=== PATIENT | male | born 1955 | race Caucasian/White ===

== ENCOUNTER 2020-01-01 01:07 | Outpatient (CLI) | payer OTHER, SELFPAY ==
[2020-01-01 18:31] LABS: SARS-CoV-2 RNA PCR Negative
== END 2020-01-01 01:08 | disposition home or self-care (01) ==
LOC: ANHCOVIDDT 01:08
PROVIDERS: PCP Family Medicine; Visit Provider Internal Medicine Cardiovascular Disease
DX: Z01.818 Encounter for other preprocedural examination (principal); Z11.59 Encounter for screening for other viral diseases
CPT/HCPCS: 87635; C9803; U0003

== ENCOUNTER 2020-01-04 05:31 | Day surgery (SDC) | payer OTHER, SELFPAY ==
[2020-01-04] VITALS (21 sets, daily range): BP systolic 128–157; BP diastolic 56–86; PULSE 55–76; RESP 12–20; TEMP 36.6–37; O2SAT 94–100; BMI 36.6
[2020-01-04 07:24] LABS: Basophils Percent Auto 0.3 % (0.2-1.2); Eosinophils Absolute Auto 0.2 K/mm3 (0-0.3); Eosinophils Percent Auto 2.2 % (0-4.4); Hematocrit 42.1 % (42.0-52.0); Hemoglobin 13.9 g/dL (14.0-18.0); Immature Granulocyte Absolute 0.03 K/mm3 (0.00-0.031); Immature Granulocyte Percent A 0.4 % (0-0.5); Lymphocytes Absolute Auto 1.71 K/mm3 (0.9-3.2); Lymphocytes Percent Auto 22.5 % (18.3-44.2); Mean Corpuscular Volume 81.9 fl (80-100); Mean Platelet Volume 10.5 fl (7.4-10.4); Monocytes Absolute Auto 0.6 K/mm3 (0.1-0.6); Neutrophils Absolute Auto 5.1 K/mm3 (1.3-6.7); Neutrophils Percent Auto 66.6 % (45.5-73.1); Platelet Count Result 154 k/mm3 (150-375); Red Blood Count 5.14 M/mm3 (4.6-6.20); White Blood Count 7.6 K/mm3 (4.5-10.0)
--- NOTE | 2020-01-04 07:24 | SUR.PREOP ---
0650-pt presents to the [facility] for an LHC. Pt has has instances in the past two weeks with exertional chest pain. No pain at present. AOx4. Questions answered and verbalized understanding. Consent signed. AOx4. PIV started and labs obtained and sent per ordered. Pedal pulses found and marked. Will continue to monitor.
[2020-01-04 07:32] LABS: Prothrombin Time 12.4 Seconds (11.1-14.7)
[2020-01-04 07:34] LABS: Anion Gap 10.7 mmol/L (7-16); Blood Urea Nitrogen 17 mg/dL (9-20); Calcium 8.7 mg/dL (8.4-10.2); Carbon Dioxide 29 mmol/L (22-30); Chloride 107 mmol/L (98-107); Estimated CRCL calculation 91 ml/min; Estimated Glomerular Filt Rate > 60; Glucose 93 mg/dL (75-110); Potassium 3.7 mmol/L (3.4-5.0); Sodium 143 mmol/L (137-145)
--- NOTE | 2020-01-04 09:07 | WPDMODSED ---
Moderate Sedation Note-Pt Data Patient Data Allergies Allergy/AdvReac Type Severity Reaction Status Date / Time No Known Drug Allergies Allergy Unknown Verified 04/02/15 17:03 NKFA Allergy Unknown Uncoded 11/23/02 12:19 Home Medications Medication Instructions Recorded Confirmed Type metoprolol tartrate 25 mg tablet 25 mg PO BID #180 tablet 06/28/19 01/04/20 Rx omeprazole 20 mg capsule,delayed 20 mg PO BID #180 cap 06/28/19 01/04/20 Rx release clopidogrel 75 mg PO DAILY 01/04/20 01/04/20 History empagliflozin [Jardiance] 25 mg PO DAILY 01/04/20 01/04/20 History furosemide 40 mg PO DAILY 01/04/20 01/04/20 History icosapent ethyl [Vascepa] 2 g PO BID 01/04/20 01/04/20 History insulin glargine [Lantus U-100 80 unit SUBCUT DAILY 01/04/20 01/04/20 History Insulin] lisinopril 20 mg PO DAILY 01/04/20 01/04/20 History metformin 500 mg PO DAILY 01/04/20 01/04/20 History nitroglycerin [Nitrostat] 0.4 mg SUBLINGUAL Q5M PRN 01/04/20 01/04/20 History rosuvastatin [Crestor] 40 mg PO DAILY 01/04/20 01/04/20 History Current Medications: Active Medications Sodium Chloride (Normal Saline Iv) 500 mls @ 100 mls/hr IV CONT .Q5H TAWNYA Sedation/Anesthesia: No previous sedation/anesthesia problems (including family history). [facility] Past Medical History Medical History (Updated 07/23/19 @ 10:42 by Michele Harp MD) Aortic regurgitation Aortic stenosis LVH (left ventricular hypertrophy) Family History Family History (Updated 04/02/18 @ 10:46 by DOCTOR UNKNOWN) Father Patient's father is Other Family history of cardiovascular disease Hypertension Social History Social History Smoking status: Current every day smoker Alcohol intake: current Mod Sed Physical Exam Physical Exam Pre Procedural Exam: Normal: Airway Hours since solid foods: 10 Hours since liquid intake: 10 Internal Medicine - PN: Obj Da Vital Signs Vital Signs: Vital Signs - 24 hr 01/04/20 07:22 Temperature 37.0 C Pulse Rate 67 Respiratory Rate 16 Blood Pressure 157/86 H Pulse Oximetry 98 Meds/Results Medications: Active Medications Generic Name Dose Route Start Last Admin Trade Name Nellie PRN Reason Stop Dose Admin Sodium Chloride 500 mls @ 100 mls/hr 01/04/20 05:55 Normal Saline Iv IV CONT .Q5H TAWNYA Labs CBC & Chem 7: 01/04/20 07:04 01/04/20 07:04 Labs: Laboratory Results - last 24 hr 01/04/20 01/04/20 01/04/20 07:04 07:04 07:04 WBC 7.6 RBC 5.14 Hgb 13.9 L Hct 42.1 MCV 81.9 MCH 27.0 MCHC 33.0 RDW 14.0 Plt Count 154 MPV 10.5 H Immature Gran % (Auto) 0.4 Neut % (Auto) 66.6 Lymph % (Auto) 22.5 Anderson % (Auto) 8.0 Eos % (Auto) 2.2 Baso % (Auto) 0.3 Lymph # (Auto) 1.71 Anderson # (Auto) 0.6 Eos # (Auto) 0.2 Baso # (Auto) 0.0 Abs Immat Gran (auto) 0.03 Absolute Neuts (auto) 5.1 Absolute Nucleated RBC 0.0 Nucleated RBC % 0.0 PT 12.4 INR 1.0 Sodium 143 Potassium 3.7 Chloride 107 Carbon Dioxide 29 Anion Gap 10.7 BUN 17 Creatinine 0.80 Estim Creat Clear Calc 91 Estimated GFR > 60 Glucose 93 Calcium 8.7 ASA Classification/Sedation ASA Classification/Sedation Risks: Risks, benefits and alternatives explained and patient/family accepted plan for sedation. Patient re-evaluated immediately prior to sedation.
--- NOTE | 2020-01-04 10:09 | PM.IMHP ---
H&P: HPI History of Present Illness Date/Time: 01/04/20 10:09 Chief complaint: Chest Pain Narrative: Laurent Delgado is a 64 year old male With known CAD, history of CABG x5 on 04/16/2015 at [facility] ( vera to LAD, SVG to 1st diagonal branch with T graft from the site of the vein to the obtuse marginal 1 and obtuse marginal 2 using the radial artery, SVG to PDA); hypertension, diabetes mellitus. Patient is known to have severe [place] vessel CAD and occluded SVG to RCA; history of high-grade stenosis of ostium of the SVG graft to diagonal, status post PCI/ 3.25 x 15 mm everolimus eluting stent on 09/21/2015 at [facility]. Patient reports that he was in his usual state of health until couple of weeks ago when he started having anginal chest pain, shortness of breath and dizziness. He was referred by Dr. Rayo for cardiac catheterization to re-evaluate his [place] coronary arteries and bypass grafts. [facility] Past Medical History Medical History (Updated 01/04/20 @ 10:14 by J Carlos Quinones MD) Aortic regurgitation Aortic stenosis LVH (left ventricular hypertrophy) Surgical History Surgical History (Updated 01/04/20 @ 10:13 by J Carlos Quinones MD) S/P CABG x 5 Family History Family History Father Patient's father is Other Family history of cardiovascular disease Hypertension Social History Social History Smoking status: Current every day smoker Alcohol intake: current Meds Home Medications and Allergies Home Medications Medication Instructions Recorded Confirmed Type metoprolol tartrate 25 mg tablet 25 mg PO BID #180 tablet 06/28/19 01/04/20 Rx omeprazole 20 mg capsule,delayed 20 mg PO BID #180 cap 06/28/19 01/04/20 Rx release clopidogrel 75 mg PO DAILY 01/04/20 01/04/20 History empagliflozin [Jardiance] 25 mg PO DAILY 01/04/20 01/04/20 History furosemide 40 mg PO DAILY 01/04/20 01/04/20 History icosapent ethyl [Vascepa] 2 g PO BID 01/04/20 01/04/20 History insulin glargine [Lantus U-100 80 unit SUBCUT DAILY 01/04/20 01/04/20 History Insulin] lisinopril 20 mg PO DAILY 01/04/20 01/04/20 History metformin 500 mg PO DAILY 01/04/20 01/04/20 History nitroglycerin [Nitrostat] 0.4 mg SUBLINGUAL Q5M PRN 01/04/20 01/04/20 History rosuvastatin [Crestor] 40 mg PO DAILY 01/04/20 01/04/20 History Allergies Allergy/AdvReac Type Severity Reaction Status Date / Time No Known Drug Allergies Allergy Unknown Verified 04/02/15 17:03 NKFA Allergy Unknown Uncoded 11/23/02 12:19 Vital Signs Vital Signs - 24 hr 01/04/20 07:22 Temperature 37.0 C Pulse Rate 67 Respiratory Rate 16 Blood Pressure 157/86 H Pulse Oximetry 98 Exam Const: General: no acute distress, alert and awake HENMT: Head: normocephalic and atraumatic Ears: hearing grossly normal bilaterally and external ears normal General nose exam: Normal external nose present and no epistaxis Face and sinus: normal facial exam and no ecchymosis Mouth: Yes tongue normal and Yes moist mucous membranes Teeth and gingiva: dentition normal Eyes: Conjunctivae: conjunctivae normal Sclera: sclerae normal Pupils: Equal, round and reactive pupils present EOM: EOMs intact bilaterally Neck: Neck: normal visual inspection, supple and no JVD Thyroid: thyroid normal Carotids: normal carotid upstroke Resp: Effort & Inspection: normal respiratory effort and able to speak in complete sentences Auscultation: clear to auscultation bilaterally Cardio: Jugular venous distension: no JVD Rate: regular rate Rhythm: regular rhythm Heart sounds: S1 normal heart sound present, S2 normal heart sound present and no murmurs GI: Inspection: normal to inspection GI Palp: No abdominal tenderness Auscultation: normal bowel sounds Skin: Other: no rash on exposed areas, no cyanosis Neuro: Cranial nerves: Yes Equal, round and reactive pup
--- NOTE | 2020-01-04 10:14 | WPDCARDPROC ---
Cardiac Cath Procedure Note Date of procedure:: 01/04/20 Performing physician:: J Carlos Quinones MD Procedure Procedure note:: LEFT HEART CATHETERIZATION, CORONARY AND BYPASS GRAFT ANGIOGRAPHY, AND PERIPHERAL ANGIOGRAM REPORT DATE OF PROCEDURE: 01/04/2020 INDICATION FOR PROCEDURE: ANGINA, SHORTNESS OF BREATH BRIEF CLINICAL HISTORY:Laurent Delgado is a 64 year old male With known CAD, history of CABG x5 on 04/16/2015 at [facility] (PERKINS to LAD, SVG to 1st diagonal branch with T graft from the site of the vein to the obtuse marginal 1 and obtuse marginal 2 using the radial artery, SVG to PDA); hypertension, diabetes mellitus. Patient is known to have severe [place] vessel CAD and occluded SVG to RCA; history of high-grade stenosis of ostium of the SVG graft to diagonal, status post PCI/ 3.25 x 15 mm everolimus eluting stent on 09/21/2015 at [facility]. Patient reports that he was in his usual state of health until couple of weeks ago when he started having anginal chest pain, shortness of breath and dizziness. He was referred by Dr. Rayo for cardiac catheterization to re-evaluate his [place] coronary arteries and bypass grafts. Of note, patient has also been experiencing discomfort in the right groin and thigh area with exertion. Benefits and risks of the procedure were discussed with the patient in depth, and informed consent was obtained prior to the procedure. Risks of the procedure include but are not limited to vascular complications including groin hematoma, retroperitoneal bleed, vessel perforation; periprocedural VA, cardiac arrhythmias, stroke, contrast induced nephropathy, and . After discussing all the benefits, risks and alternatives, patient was willing to proceed with the procedure. PROCEDURES PERFORMED: 1. Left heart catheterization- Selective left and right coronary angiogram; left ventriculogram and hemodynamic assessment 2. Selective bypass graft angiography 3. Selective left subclavian angiogram 4. Percutaneous coronary intervention-intravascular ultrasound (IVUS) of ostial and proximal RCA 5. Distal abdominal aortogram with bilateral iliac runoff 6. Moderate sedation -CPT code 49472 MODERATE SEDATION: Midazolam 1 mg; fentanyl 25 mcg; Start time 0914 , Stop time 0959 ; Total [id number] time 45 minutes; Rebeca Ruth RN was trained observer for moderate sedation. ACCESS SITE: Right common femoral artery PROCEDURE NOTE: After obtaining informed consent, patient was brought to catheterization lab and prepped and draped in a usual sterile manner. After local anesthesia with lidocaine, right common femoral artery access was taken with micropuncture needle followed by insertion of a 5 [place] sheath . There was difficulty in advancing the wire at the proximal segment of the iliac artery. A Glidewire was used to advance the catheters, and the procedure was performed over a long exchange wire. Selective left and right coronary angiogram was performed using 5 [place] JL4 and JR4 catheters respectively. Orthogonal views were taken. Next, Selective bypass graft angiography was performed using JR4 diagnostic catheter. The same catheter was withdrawn, and selective left subclavian angiogram was performed. Next, the catheter was exchanged over a long exchange wire with a 5 [place] IM catheter. Selective PERKINS angiogram was performed. Next, a 5 [place] pigtail catheter was advanced in the LV cavity and was flushed with normal saline. LV pressure measurement was performed. After this, left ventriculogram was performed. The catheter was flushed again, and gradient across the aortic valve was measured on the pullback of the catheter . Due to early difficulty in advancing the wire into the right iliac artery, we proceeded with a peripheral angiogram to evaluate for any significant peripheral artery disease. The [place] pigtail catheter was advanced into distal abdominal abdominal aorta, and distal abd
== END 2020-01-04 19:25 | disposition home or self-care (01) ==
PROVIDERS: PCP Family Medicine; Visit Provider Internal Medicine Cardiovascular Disease
PROC: 4A023N7 Measurement of Cardiac Sampling and Pressure, Left Heart, Percutaneous Approach (ICD-10-PCS; CPT 93459; principal; 2020-01-04 08:30)
PROC: (CPT 75625; 2020-01-04 08:30)
DX: I25.119 Atherosclerotic heart disease of native coronary artery with unspecified angina pectoris (principal); R06.02 Shortness of breath; T82.855A Stenosis of coronary artery stent, initial encounter; Y83.8 Other surgical procedures as the cause of abnormal reaction of the patient, or of later complication, without mention of misadventure at the time of the procedure; I35.2 Nonrheumatic aortic (valve) stenosis with insufficiency; Z95.1 Presence of aortocoronary bypass graft; Z95.5 Presence of coronary angioplasty implant and graft; Z79.02 Long term (current) use of antithrombotics/antiplatelets; Z79.4 Long term (current) use of insulin; Z79.84 Long term (current) use of oral hypoglycemic drugs
CPT/HCPCS: 36140; 36415; 75625; 80048; 85025; 85610; 87635; 92978; 93459; C1753; C1769; C1887; C1894; C9803; J0583; J1644; J2250; J3010; J7040; U0003

== ENCOUNTER 2020-02-05 06:21 | Emergency (ER) | payer OTHER, SELFPAY ==
--- NOTE | ~2020-02-05 | XR_ITS ---
EXAMINATION: XR chest 1V portable INDICATION: Shortness of breath and chest pain TECHNIQUE: Portable AP chest at 0702 hours COMPARISON: None available FINDINGS: A mild diffuse interstitial pattern is present. Cardiomegaly is noted. There is no pleural effusion or pneumothorax. Median sternotomy wires and mediastinal surgical clips are seen, likely fro m prior coronary artery bypass grafting. IMPRESSION: 1. Cardiomegaly with mild pulmonary edema. Reviewed, dictated and finalized at location A.
[2020-02-05 06:26] VITALS: BP 128/70; PULSE 172; RESP 23; TEMP 36.1; O2SAT 98
[2020-02-05] MEDS: ADENOSINE IV SOLN 6 MG/2 ML VIAL IV PUSH (06:41)
--- NOTE | 2020-02-05 06:41 | ECG_ITS ---
Measurements Intervals [place] Rate: 167 P: SD: 0 QRS: 37 QRSD: 94 T: 200 QT: 269 QTc: 449 Interpretive Statements SUPRAVENTRICULAR TACHYCARDIA ST-T WAVE ABNORMALITY IN DIFFUSE LEADS- CONSIDER ISCHEMIA ABNORMAL ECG Electronically Signed On 02-05-2020 6:58:47 CDT by Jonathon Lea D.O.
--- NOTE | 2020-02-05 06:41 | ED.CHESTPAIN ---
HPI - Chest Pain General Chief Complaint: Chest Pain Stated Complaint: cp Time Seen by Provider: 02/05/20 06:31 Source: patient Mode of arrival: ambulatory Limitations: no limitations History of Present Illness HPI narrative: This patient is 64 year old male who presents for evaluation of chest pain. He states he woke up 20 minutes ago with midsternal chest pain and heaviness. He also noticed that he was diaphoretic. He states he took 3 nitro but it did not relieve his pain so he came to ER. His cross tie maker is Dr. Rayo. He states he had 2 stents placed 3- [address] Quinones at [facility]. On arrival to ER , patient has been found to be in SVT. Related Data Home Medications Medication Instructions Recorded Confirmed Jardiance 25 mg PO DAILY 01/04/20 01/04/20 Lantus U-100 Insulin 80 unit SUBCUT DAILY 01/04/20 01/04/20 Vascepa 2 g PO BID 01/04/20 01/04/20 clopidogrel 75 mg PO DAILY 01/04/20 01/04/20 furosemide 40 mg PO DAILY 01/04/20 01/04/20 lisinopril 20 mg PO DAILY 01/04/20 01/04/20 metformin 500 mg PO DAILY 01/04/20 01/04/20 nitroglycerin [Nitrostat] 0.4 mg SUBLINGUAL Q5M PRN 01/04/20 01/04/20 rosuvastatin [Crestor] 40 mg PO DAILY 01/04/20 01/04/20 Allergies Allergy/AdvReac Type Severity Reaction Status Date / Time No Known Allergies Allergy Verified 02/05/20 06:31 Review of Systems Review of Systems: All systems reviewed & are unremarkable except as noted in HPI and below Constitutional: Constitutional: Denies chills Cardiovascular: Cardiovascular: Reports chest pain and Reports rapid heart rate Respiratory: Respiratory: Denies cough, Denies dyspnea and Denies wheezing Gastrointestinal: Gastrointestinal: Denies abdominal pain, Reports heartburn and Denies nausea Neurologic: Reports headache(s) PMF Past Medical History Medical History (Updated 02/05/20 @ 08:19 by Karyn Cordero MD) Aortic regurgitation Aortic stenosis LVH (left ventricular hypertrophy) Surgical History Surgical History (Updated 01/04/20 @ 10:13 by J Carlos Quinones MD) S/P CABG x 5 Social History Social History Smoking status: Current every day smoker Alcohol intake: current Exam Const: General: alert, diaphoretic and ill appearing acutely Orientation/consciousness: patient oriented x3 Eyes: EOM: EOMs intact bilaterally Neck: Neck: no lymphadenopathy Chest: Chest palpation & inspection: normal inspection of the chest Resp: Effort & Inspection: normal respiratory effort and no retractions Auscultation: clear to auscultation bilaterally Cardio: Rate: tachycardic Rhythm: abnormal rhythm regularly irregular GI: GI Palp: Yes Soft to palpation, No Firmness to palpation present (GI) and No Tenderness to palpation present (GI) Skin: General skin exam: normal color Rashes: no rashes Neuro: General: patient oriented x3, moves all extremities and CN's II-XI intact bilaterally Course Reevaluation(s) Reevaluation #1: Patient states his chest pain has resolved. He denies sob. He feels better. Date: 02/05/20 Time: 07:12 Reevaluation #2: PAtient has no chest pain. Date: 02/05/20 Time: 08:17 Consultations Consultation #1: I spoke with Dr. Fine. He agrees with discharging patient home. He is on metoprolol, aspirin and plavix. No changes made at this time. Date: 02/05/20 Time: 08:17 Vital Signs Vital signs: Vital Signs Temperature 97 F L 02/05/20 06:26 Pulse Rate 172 H 02/05/20 06:26 Respiratory Rate 23 H 02/05/20 06:26 Blood Pressure 128/70 02/05/20 06:26 Pulse Oximetry 98 02/05/20 06:26 Temperature 97 F L 02/05/20 06:26 Pulse Rate 172 H 02/05/20 06:26 Respiratory Rate 23 H 02/05/20 06:26 Blood Pressure 128/70 02/05/20 06:26 Pulse Oximetry 98 02/05/20 06:26 MDM - Chest Pain Lab Data Result diagrams: 02/05/20 06:40 02/05/20 06:40 Labs: Lab Results 02/05/20 0
[2020-02-05 07:25] LABS: Basophils Percent Auto 0.3 % (0.2-1.2); Eosinophils Absolute Auto 0.2 K/mm3 (0-0.3); Eosinophils Percent Auto 2.1 % (0-4.4); Hematocrit 43.7 % (42.0-52.0); Hemoglobin 14.6 g/dL (14.0-18.0); Immature Granulocyte Absolute 0.04 K/mm3 (0.00-0.031); Immature Granulocyte Percent A 0.3 % (0-0.5); Lymphocytes Absolute Auto 3.06 K/mm3 (0.9-3.2); Lymphocytes Percent Auto 26.4 % (18.3-44.2); Mean Corpuscular HGB Conc 33.4 g/dl (32-36); Mean Corpuscular Hemoglobin 27.5 pg (26-34); Mean Corpuscular Volume 82.3 fl (80-100); Mean Platelet Volume 11.5 fl (7.4-10.4); Monocytes Absolute Auto 0.9 K/mm3 (0.1-0.6); Monocytes Percent Auto 7.5 % (2.6-8.5); Neutrophils Absolute Auto 7.3 K/mm3 (1.3-6.7); Neutrophils Percent Auto 63.4 % (45.5-73.1); Platelet Count Result 191 k/mm3 (150-375); Red Blood Count 5.31 M/mm3 (4.6-6.20); Red Cell Distribution Width 14.1 % (11.5-14.5); White Blood Count 11.6 K/mm3 (4.5-10.0)
[2020-02-05 07:34] LABS: Prothrombin Time 12.5 Seconds (11.1-14.7)
[2020-02-05 07:35] LABS: Partial Thromboplastin Time 25.6 SECONDS (22.3-36.8)
[2020-02-05 07:42] LABS: Anion Gap 9 mmol/L (8-16); Blood Urea Nitrogen 16 mg/dL (9-20); Calcium 8.8 mg/dL (8.4-10.2); Carbon Dioxide 28 mmol/L (22-30); Chloride 104 mmol/L (98-107); Estimated Glomerular Filt Rate > 60; Glucose 229 mg/dL (75-110); Potassium 3.7 mmol/L (3.4-5.0); Sodium 141 mmol/L (137-145)
[2020-02-05 07:54] LABS: Troponin I < 0.012 ng/mL (0.000-0.034)
[2020-02-05 08:30] VITALS: BP 118/74; PULSE 70; PULSE 71; RESP 20; O2SAT 100
== END 2020-02-05 09:03 | disposition home or self-care (01) ==
PROVIDERS: Emergency Provider General Practice; PCP Family Medicine
DX: I47.1 Supraventricular tachycardia (principal); I25.10 Atherosclerotic heart disease of native coronary artery without angina pectoris; R94.31 Abnormal electrocardiogram [ECG] [EKG]; I35.2 Nonrheumatic aortic (valve) stenosis with insufficiency; Z95.5 Presence of coronary angioplasty implant and graft; Z95.1 Presence of aortocoronary bypass graft; F17.200 Nicotine dependence, unspecified, uncomplicated; Z79.82 Long term (current) use of aspirin; Z79.02 Long term (current) use of antithrombotics/antiplatelets
CPT/HCPCS: 36415; 71045; 80048; 84484; 85025; 85610; 85730; 93005; 96374; 99284; J0153

== ENCOUNTER 2020-06-11 12:35 | Observation (INO) | payer OTHER, SELFPAY ==
[2020-06-11] VITALS (15 sets, daily range): BP systolic 158–194; BP diastolic 78–94; PULSE 68–89; RESP 18–28; TEMP 36.2–36.8; O2SAT 94–99; BMI 36.9
--- NOTE | ~2020-06-11 | US_ITS ---
EXAMINATION: US venous doppler LE EXAM DATE: 06/12/2020 10:16 INDICATION: Bilateral leg edema. TECHNIQUE: Multiple grayscale, color flow and Doppler images of the lower extremity deep venous syste ms bilaterally were obtained and reviewed. There is no prior study for comparison. FINDINGS: Right side: The right common femoral, femoral and profunda veins demonstrate normal color flow, respi ratory variation, augmentation and compressibility. Compressibility, color flow confirmed within the right popliteal, posterior tibial, peroneal, and greater saphenous veins. Left side: The left common femoral, femoral and profunda veins demonstrate normal color flow, respira tory variation, augmentation and compressibility. Compressibility, color flow confirmed within the l eft popliteal, posterior tibial, peroneal, and greater saphenous veins. IMPRESSION: 1. No lower extremity deep venous thrombosis bilaterally. Reviewed, dictated and finalized at location B. ETIC INTERN
--- NOTE | ~2020-06-11 | XR_ITS ---
XR chest 2V 06/11/2020 13:01 Indication: Shortness of breath. Chest pain. Procedure: PA and lateral views of the chest Comparison: 02/05/2020 Findings: Status post median sternotomy for CABG. Airspace disease of the mid and lower lung zones. S mall pleural effusions. No acute osseous abnormality. Impression: 1: Airspace disease of the mid and lower lung zones which may represent edema or pneumonia. Reviewed, dictated and finalized at location A. GER LINUX Impression: 1: Airspace disease of the mid and lower lung zones which may represent edema o r pneumonia.
--- NOTE | 2020-06-11 12:46 | ECG_ITS ---
Measurements Intervals [place] Rate: 70 P: 3 MO: 160 QRS: 28 QRSD: 96 T: 111 QT: 452 QTc: 488 Interpretive Statements SINUS RHYTHM BORDERLINE ST-T WAVE ABNORMALITY- HIGH LATERAL LEADS BASELINE WANDER- III BORDERLINE ECG Electronically Signed On 06-11-2020 16:29:57 BAND AID MACHINE OPERATOR by Jonathon Lea D.O.
[2020-06-11 13:02] LABS: Basophils Percent Auto 0.4 % (0.2-1.2); Eosinophils Absolute Auto 0.2 K/mm3 (0-0.3); Eosinophils Percent Auto 2.2 % (0-4.4); Hematocrit 40.4 % (42.0-52.0); Hemoglobin 13.3 g/dL (14.0-18.0); Immature Granulocyte Absolute 0.01 K/mm3 (0.00-0.031); Immature Granulocyte Percent A 0.1 % (0-0.5); Lymphocytes Absolute Auto 1.22 K/mm3 (0.9-3.2); Mean Corpuscular HGB Conc 32.9 g/dl (32-36); Mean Corpuscular Hemoglobin 26.9 pg (26-34); Mean Corpuscular Volume 81.8 fl (80-100); Mean Platelet Volume 10.3 fl (7.4-10.4); Monocytes Absolute Auto 0.7 K/mm3 (0.1-0.6); Monocytes Percent Auto 9.3 % (2.6-8.5); Neutrophils Absolute Auto 5.1 K/mm3 (1.3-6.7); Platelet Count Result 129 k/mm3 (150-375); Red Blood Count 4.94 M/mm3 (4.6-6.20); Red Cell Distribution Width 15.5 % (11.5-14.5); White Blood Count 7.2 K/mm3 (4.5-10.0)
--- NOTE | 2020-06-11 13:10 | ED.SOB ---
HPI - SOB/Dyspnea General Chief Complaint: Shortness of Breath/Dyspnea Stated Complaint: sob, covid april Time Seen by Provider: 06/11/20 12:52 Source: patient Mode of arrival: ambulatory Limitations: no limitations History of Present Illness HPI Narrative: Patient is a 65-year-old male complaining of shortness of breath worse with exertion started approximately 5 days ago worse for the past few days. Patient states he has a history of congestive heart failure and takes a water pill for it . Patient also complaining of chest tightness, midsternal, 5 out of 10, nonradiating, worse with exertion also started approximately 5 days ago. Patient denies any fever or chills. Patient denies any abdominal pain, nausea, vomiting, diaphoresis. Related Data Home Medications Medication Instructions Recorded Confirmed Jardiance 25 mg PO DAILY 01/04/20 05/17/20 Lantus U-100 Insulin 80 unit SUBCUT DAILY 01/04/20 05/17/20 Vascepa 2 g PO BID 01/04/20 05/17/20 clopidogrel 75 mg PO DAILY 01/04/20 05/17/20 furosemide 40 mg PO DAILY 01/04/20 05/17/20 lisinopril 20 mg PO DAILY 01/04/20 05/17/20 nitroglycerin [Nitrostat] 0.4 mg SUBLINGUAL Q5M PRN 01/04/20 05/17/20 rosuvastatin [Crestor] 40 mg PO DAILY 01/04/20 05/17/20 alpha lipoic acid 200 mg capsule 200 mg PO BID 05/17/20 05/17/20 isosorbide mononitrate 30 mg 30 mg PO DAILY 05/17/20 05/17/20 tablet,extended release 24 hr metformin 500 mg tablet 1,000 mg PO BID tablet 05/17/20 05/17/20 semaglutide 1 mg/dose (2 mg/1.5 1 mg SUBCUT WEEKLY 05/17/20 05/17/20 mL) subcutaneous pen injector Allergies Allergy/AdvReac Type Severity Reaction Status Date / Time No Known Allergies Allergy Verified 05/17/20 15:37 Review of Systems Review of Systems: All systems reviewed & are unremarkable except as noted in HPI and below Constitutional: Constitutional: Denies body ache(s), Denies chills, Denies excessive sweating, Denies fatigue, Denies fever(s), Denies headache(s), Denies lethargy, Denies malaise, Denies weakness and Denies weight loss Eyes: Eyes: Denies blurry vision, Denies change in vision and Denies loss of vision ENT: Denies dizziness, Denies ear discharge, Denies headache(s), Denies lip swelling, Denies epistaxis, Denies nasal congestion, Denies neck pain, Denies throat swelling and Denies tongue swelling Cardiovascular: Cardiovascular: Denies diaphoresis, Denies rapid heart rate, Denies edema, Denies irregular heart rhythm, Denies lightheadedness and Denies palpitations Respiratory: Respiratory: Denies chest congestion, Denies cough and Denies hemoptysis Gastrointestinal: Gastrointestinal: Denies abdominal pain, Denies melena, Denies hematochezia, Denies diarrhea, Denies nausea, Denies vomiting and Denies hematemesis Musculoskeletal: Musculoskeletal: Denies abnormal gait, Denies deformity, Denies joint swelling, Denies limited range of motion, Denies neck pain and Denies numbness Neurologic: Denies Abnormal speech present, Denies abnormal gait, Denies confusion, Denies dizziness, Denies headache(s), Denies focal weakness, Denies loss of vision, Denies numbness, Denies Other visual disturbances, Denies Sensory deficit (Neuro) and Denies weakness Psychiatric: Psychiatric: Denies confusion, Denies depression, Denies auditory hallucinations, Denies homicidal ideation and Denies suicidal ideation Endocrine: Endocrine: Denies cold intolerance, Denies excessive sweating, Denies fatigue, Denies heat intolerance and Denies palpitations Hematologic/Lymphatic: Hematologic/Lymphatic: Denies easy bleeding and Denies easy bruising Allergic/Immunologic: Allergic/Immunologic: Denies lip swelling, Denies throat swelling and Denies tongue swelling PMFSH Past Medical History Medical History Aortic regurgitation Aortic stenosis COVID-19 COVID-19 virus detected LVH (left ventricular hypertrophy) Obesity Surgical History Surgical History (Reviewed
[2020-06-11 13:15] LABS: Anion Gap 5 mmol/L (8-16); Blood Urea Nitrogen 8 mg/dL (9-20); Calcium 8.8 mg/dL (8.4-10.2); Carbon Dioxide 32 mmol/L (22-30); Chloride 103 mmol/L (98-107); Estimated CRCL calculation 104 ml/min; Estimated Glomerular Filt Rate > 60; Glucose 135 mg/dL (75-110); Potassium 3.9 mmol/L (3.4-5.0); Sodium 140 mmol/L (137-145)
[2020-06-11] MEDS: FUROSEMIDE INJ 40 MG/4 ML VIAL IV PUSH ×2 (13:17→21:31)
[2020-06-11 13:56] LABS: NT Pro B Type Natriuretic Pept 1710 PG/ML (5-100); Troponin I < 0.012 ng/mL (0.000-0.034)
[2020-06-11] MEDS: ASPIRIN 81 MG CHEWABLE TABLET 324 MG PO (14:41)
[2020-06-11] MEDS: NITROGLYCERIN OINTMENT 1 INCH DOSE (14:44)
--- NOTE | 2020-06-11 16:32 | ADMGEN ---
This patient, Laurent Delgado, was admitted to IMU Room 232-01 on 06/11/20 at 1626. Patient/family oriented to hospital policies and general routines including ID bracelet, bed and alarms, visiting hours, pain management, procedures, bathroom and other care routines, personal items, smoking policy, room service/diet, and visiting hours. Information on how to activate the Rapid Response Team has been discussed. Patient/Family are encouraged to report perceived risks to care and to ask questions if they do not understand what they are told or what they should do.
[2020-06-11 18:08] LABS: Troponin I < 0.012 ng/mL (0.000-0.034)
--- NOTE | 2020-06-11 20:30 | PM.IMHP ---
H&P: HPI History of Present Illness Date/Time: 06/11/20 20:30 Chief Complaint: Shortness of breath and chest discomfort with exertion. Narrative: This is a 65-year-old male with coronary artery disease, hypertension, dyslipidemia, insulin-dependent diabetes who presented to the emergency department earlier today via private vehicle from home for evaluation after he has been experiencing shortness of breath and chest discomfort with exertion. He describes getting ?winded? with mild midsternal soreness with most any activity since Friday. It resolves with rest however today it occurred simply while he was sitting down. No associated nausea, vomiting, and sweats. It should be noted that the patient had COVID-19 in April 2020 and his symptoms have resolved however over the last several days he has had a mild nonproductive cough and mild postnasal drip. No fever, chills, or sweats. He denies sick contacts. Review of Systems Review of Systems: Narrative: Twelve systems were reviewed with pertinent positives and negatives as per HPI. No headache. He denies palpitations and racing heart. No orthopnea or PND. Occasional lower extremity swelling but nothing significant. No calf pain or tenderness. Denies history of venous thromboembolism. States compliance with his home medication. No blurry vision, polydipsia, or polyuria. Except as documented, all other systems were reviewed and are negative. [facility] Past Medical History Medical History (Updated 06/11/20 @ 23:44 by Teri Lock PA-C) Aortic regurgitation Aortic stenosis Congestive heart failure Coronary artery disease COVID-19 (~04/2020) Essential hypertension Gastroesophageal reflux disease Insulin dependent type 2 diabetes mellitus Left ventricular hypertrophy Mixed hyperlipidemia Obstructive sleep apnea on CPAP Peripheral vascular disease Surgical History Surgical History (Updated 06/11/20 @ 23:39 by Teri Lock PA-C) History of cardiac catheterization With several stents, most recent in January 2020. History of vascular surgery Right lower extremity stent. Status post coronary artery bypass grafts x 5 (~04/16/15) Performed at [facility]. Family History Family History Father Patient's father is Other Family history of cardiovascular disease Hypertension Social History Social History (Updated 06/11/20 @ 23:40 by Teri Lock PA-C) Social History: The patient lives in [place] with his . 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 Former smoker. No alcohol or illicit substance abuse. He designates his Aarti as his surrogate decision maker and he wishes to be a full code. Gender identity (if verbalized by the patient): Male Spiritual care concerns: No Meds Home Medications and Allergies Home Medications Medication Instructions Recorded Confirmed Type omeprazole 20 mg capsule,delayed 20 mg PO BID #180 cap 06/28/19 06/11/20 Rx release Jardiance 25 mg PO DAILY 01/04/20 06/11/20 History Lantus U-100 Insulin 75 unit SUBCUT DAILY 01/04/20 06/11/20 History clopidogrel 75 mg PO DAILY 01/04/20 06/11/20 History furosemide 40 mg PO DAILY 01/04/20 06/11/20 History icosapent ethyl [Vascepa] 2 g PO BID 01/04/20 06/11/20 History lisinopril 20 mg PO DAILY 01/04/20 06/11/20 History nitroglycerin [Nitrostat] 0.4 mg SUBLINGUAL Q5M PRN 01/04/20 06/11/20 History rosuvastatin [Crestor] 40 mg PO DAILY 01/04/20 06/11/20 History alpha lipoic acid 200 mg capsule 200 mg PO TID 05/17/20 06/11/20 History isosorbide mononitrate 30 mg 30 mg PO DAILY 05/17/20 06/11/20 History tablet,extended release 24 hr metformin 500 mg tablet 1,000 mg PO BID tablet 05/17/20 06/11/20 History semaglutide 1 mg/dose (2 mg/1.5 1 mg SUBCUT WEEKLY 05/17/20 06/11/20 History mL) subcutaneous pen injector metoprolol tartrate 50 mg PO BID
[2020-06-11 20:48] LABS: Troponin I < 0.012 ng/mL (0.000-0.034)
[2020-06-12] VITALS (10 sets, daily range): BP systolic 148–174; BP diastolic 76–83; PULSE 68–89; RESP 16–20; TEMP 35.7–36.7; O2SAT 95–98
[2020-06-12 05:44] LABS: Hematocrit 38.5 % (42.0-52.0); Hemoglobin 12.9 g/dL (14.0-18.0); Mean Corpuscular HGB Conc 33.5 g/dl (32-36); Mean Corpuscular Hemoglobin 26.5 pg (26-34); Mean Corpuscular Volume 79.1 fl (80-100); Platelet Count Result 142 k/mm3 (150-375); Red Blood Count 4.87 M/mm3 (4.6-6.20); Red Cell Distribution Width 15.3 % (11.5-14.5); White Blood Count 7.6 K/mm3 (4.5-10.0)
[2020-06-12 05:58] LABS: Alanine Aminotransferase 15 U/L (4-50); Albumin Level 3.8 g/dL (3.5-5.1); Alkaline Phosphatase 47 U/L (38-126); Anion Gap 8 mmol/L (8-16); Aspartate Amino Transferase 20 U/L (17-59); Bilirubin,Total 0.6 mg/dL (0.2-1.3); Blood Urea Nitrogen 9 mg/dL (9-20); Calcium 8.4 mg/dL (8.4-10.2); Carbon Dioxide 29 mmol/L (22-30); Chloride 103 mmol/L (98-107); Estimated CRCL calculation 102 ml/min; Estimated Glomerular Filt Rate > 60; Glucose 171 mg/dL (75-110); Magnesium 1.7 mg/dL (1.6-2.3); Potassium 3.6 mmol/L (3.4-5.0); Sodium 140 mmol/L (137-145)
[2020-06-12 06:28] LABS: Hemoglobin A1C 6.5 % (<5.7)
[2020-06-12] MEDS: METOPROLOL TARTRATE 50 MG TAB PO (08:13)
[2020-06-12] MEDS: ROSUVASTATIN 10 MG TABLET 40 MG PO (08:13)
[2020-06-12] MEDS: OMEGA 3 POLYUNSAT FATTY ACIDS 1 GM CAP 2 GM PO ×2 (08:13→17:26)
[2020-06-12] MEDS: PANTOPRAZOLE SOD SESQUIHYDRATE 20 MG TAB PO (08:14)
[2020-06-12] MEDS: ISOSORBIDE MONONITRATE 30 MG TAB.ER.24H PO (08:14)
[2020-06-12] MEDS: FUROSEMIDE 40 MG TABLET PO (08:14)
[2020-06-12] MEDS: lisinopriL 20 MG TABLET PO ×2 (08:14→13:50)
[2020-06-12] MEDS: CLOPIDOGREL BISULFATE 75 MG TABLET PO (08:14)
[2020-06-12 08:28] LABS: Glucose Point of Care 192 (65-105)
[2020-06-12] MEDS: INSULIN GLARGINE (*BKC) 100 UNITS/ML 75 UNITS SUB-Q (08:36)
--- NOTE | 2020-06-12 09:29 | ECHO_ITS ---
Patient Info Name: Laurent Delgado Age: 65 years : 1955 Gender: Male Ht: 66 in Wt: 232 lbs BSA: 2.26 m2 HR: 65 bpm BP: 163 / 83 mmHg Heart Rhythm: Sinus Rhythm Technical Quality: Good Exam Date: 06/12/2020 10:36 AM Exam Location: [facility] Pulmonary Patient Status: Inpatient Admit Date: 06/11/2020 Staff Ordering Physician: Ron Rayo MD Fishing Game Warden: Laurent Vzaquez RDCS Attending Provider: Cedric Lazar MD Referring Physician: Perri OLIVEIRA; Exam Type: CA echo dop color flow w con Study Info Indications R06.02 - Shortness of breath Complete two-dimensional, color flow and Doppler transthoracic echocardiogram is performed with contrast to opacify the left ventricle and to improve the deliniation of the left ventricle endocardial borders. Contrast/Agitated Saline Contrast/Ag. Saline: Definity Amount: 2.00 ml Existing IV Access: Yes History/Risk Factors Shortness of breath; CHF, CAD s/p 5vCABG 2015, , Covid19+, HTN, Dm2. Summary 1. Left ventricular systolic function is normal, estimated at 65-70%. 2. There is mild to moderately increased left ventricular wall thickness. 3. The left ventricular diastolic function is grade I diastolic dysfunction. 4. There is mild to moderate aortic valve stenosis with a peak velocity of 305.76 cm/s, mean gradient of 21 mmHg, and aortic valve area of 1.40 cm2. 5. There is moderate aortic valve calcification. 6. There is trace mitral valve regurgitation. 7. Unable to estimate PA systolic pressure due to poor spectral resolution of tricuspid regurgitant jet velocity. Left Ventricle Left ventricular chamber dimension is normal. Left ventricular systolic function is normal, estimated at 65-70%. There is mild to moderately increased left ventricular wall thickness. The left ventricular diastolic function is grade I diastolic dysfunction. Right Ventricle Right ventricular chamber dimension is normal. Right ventricular systolic function is normal. Left Atria Left atrial chamber dimension is normal. Right Atria Right atrial chamber dimension is normal. Aortic Valve The aortic valve is not well visualized. There is mild to moderate aortic valve stenosis with a peak velocity of 305.76 cm/s, mean gradient of 21 mmHg, and aortic valve area of 1.40 cm2. There is no aortic valve regurgitation. There is moderate aortic valve calcification. Pulmonic Valve The pulmonic valve is not well visualized. Mitral Valve The mitral valve has normal leaflets. There is trace mitral valve regurgitation. The mitral valve annulus is moderately calcified. Tricuspid Valve The tricuspid valve leaflets are normal. Unable to estimate PA systolic pressure due to poor spectral resolution of tricuspid regurgitant jet velocity. Pericardium/Pleural The pericardium appears normal. There is no pericardial effusion. Inferior Vena Cava Normal inferior vena cava with >50% collapse upon inspiration consistent with normal right atrial pressure, 5 mmHg. Aorta The aortic root size at the sinus of Valsalva is normal. Left Ventricular Outflow Tract Name Value Normal LVOT 2D LVOT Diameter 2.20 cm
[2020-06-12] MEDS: PERFLUTREN LIPID MICROSPHERES 1.5 ML VIAL DILUTED TO 10 ML TOTAL VOLUME IV PUSH (11:00)
--- NOTE | 2020-06-12 11:11 | PM.CNCAR ---
Assessment and Plan Assessment and plan (1) Acute exacerbation of CHF (congestive heart failure): Qualifiers: Heart failure type: unspecified Qualified Code(s): I50.9 - Heart failure, unspecified Code(s): I50.9 - Heart failure, unspecified Status: Acute Assessment and Plan: Heart failure with preserved ejection fraction significant improvement with IV Lasix. Most likely secondary to uncontrolled hypertension at presentation blood pressure 190s over 80s improved but not well controlled today. BP control. Increase lisinopril to 40 mg daily. Monitor renal function. Change Lasix to 40 mg p.o. daily. 2D echo pending will review when available. Recommendations to follow. Will assess LV function, status of aortic stenosis, pulmonary pressures and chamber size. Particularly given post COVID status would like to review LV function. (2) Chest pain: Qualifiers: Chest pain type: unspecified Qualified Code(s): R07.9 - Chest pain, unspecified Code(s): R07.9 - Chest pain, unspecified Status: Acute Assessment and Plan: Atypical, worse with coughing, movement and deep breathing different than his prior anginal symptoms ruled out for myocardial infarction with negative enzymes. EKG without acute ischemic changes. While PE possible concern as he was off systemic anticoagulation, lower extremity venous Doppler negative for DVT, patient with normal oxygen saturations on room air making pulmonary embolism unlikely. (3) Coronary artery disease: Code(s): I25.10 - Atherosclerotic heart disease of [place] coronary artery without angina pectoris Status: Inactive Assessment and Plan: Discontinue aspirin, continue clopidogrel and Eliquis, rosuvastatin and. (4) Essential hypertension: Code(s): I10 - Essential (primary) hypertension Status: Acute Assessment and Plan: Poorly controlled. As above increase lisinopril. (5) Atrial flutter, paroxysmal: Code(s): I48.92 - Unspecified atrial flutter Status: Acute Assessment and Plan: Maintaining sinus rhythm. Resume systemic anticoagulation with Eliquis 5 mg b.i.d.. Monitor for bleeding. (6) Chronic anticoagulation: Code(s): Z79.01 - moth exterminator (current) use of anticoagulants Status: Acute Assessment and Plan: Resume Eliquis 5 mg b.i.d. as above. (7) Obstructive sleep apnea on CPAP: Code(s): G47.33 - Obstructive sleep apnea (adult) (pediatric); Z99.89 - Dependence on other enabling machines and devices Status: Acute Assessment and Plan: Compliance with CPAP. History of Present Illness History of Present Illness Consult date/time: Date of service: 06/12/20 11:11 The cardiology consultation at the request of Teri Lock of the [facility] for our opinion regarding progressive shortness of breath, CHF, and chest pain. Requesting physician: Teri Lock PA-C Consult reason: chest pain and congestive heart failure Reason For Visit: CHF Exacerb, Chest Pain Narrative: Patient is a very pleasant 65-year-old male well known to me as an outpatient with a complicated past medical history including CAD status post RCA stent 1996, hypertension, diabetes mellitus, dyslipidemia, remote history of tobacco abuse, ROYER on CPAP, status post 5 vessel CABG 03/16/2015, postoperative atrial fibrillation, status post PCI with 3.25 x 15 mm drug-eluting stent 09/21/2015 to SVG to diagonal branch, occluded SVG to RCA noted. By left heart catheterization 01/04/2020 70-80% left main stenosis with LABOR OPERATOR of mid LAD after diagonal branch, 60-70% proximal circumflex stenosis, 60-70% stenosis ostial RCA with catheter dampening, [id number] diffuse InStent restenoses mid RCA with calcification, patent PERKINS to LAD, patent SVG to diagonal with patent radial T graft from SVG to OM1/OM2, occluded SVG to RCA. Patient received 2 stents 3.0 x 20 mm 3.5 x 24 mm miguela
[2020-06-12 12:23] LABS: Glucose Point of Care 192 (65-105)
--- NOTE | 2020-06-12 16:42 | PM.DS ---
DS: Admitting Diagnosis Admitting Diagnosis Admitting Diagnosis: Chief Complaint: Shortness of breath and chest discomfort with exertion. DS: Discharge Diagnosis Discharge Diagnosis (1) Angina of effort: Code(s): I20.8 - Other forms of angina pectoris Status: Acute (2) Congestive heart failure: Code(s): I50.9 - Heart failure, unspecified Status: Inactive (3) Obstructive sleep apnea on CPAP: Code(s): G47.33 - Obstructive sleep apnea (adult) (pediatric); Z99.89 - Dependence on other enabling machines and devices Status: Acute (4) Mixed hyperlipidemia: Code(s): E78.2 - Mixed hyperlipidemia Status: Acute (5) Essential hypertension: Code(s): I10 - Essential (primary) hypertension Status: Acute DS: Summary Hospital Course Reason for hospitalization: Chief Complaint: Shortness of breath and chest discomfort with exertion. Narrative: This is a 65-year-old male with coronary artery disease, hypertension, dyslipidemia, insulin-dependent diabetes who presented to the emergency department earlier today via private vehicle from home for evaluation after he has been experiencing shortness of breath and chest discomfort with exertion. He describes getting ?winded? with mild midsternal soreness with most any activity since Friday. It resolves with rest however today it occurred simply while he was sitting down. No associated nausea, vomiting, and sweats. It should be noted that the patient had COVID-19 in April 2020 and his symptoms have resolved however over the last several days he has had a mild nonproductive cough and mild postnasal drip. No fever, chills, or sweats. He denies sick contacts. Hospital Course: Patient presented with shortness of breath and concerned CHF patient had a cardiac echo which showed preserved LV function and grade 1 diastolic dysfunction patient seen by Cardiology, remains clinically stable, will discharge the patient to follow-up with clinical application manager in 2 and his primary care doctor as soon as possible Time Spent with Patient Time attestation: Total time spent providing and/or coordinating discharge services: Exam Narrative: Exam Narrative: Patient is comfortable, NAD HEENT: eyes are clear and none icteric LUNGS: Bilateral fair air entry with minimal rales and rhonchi HEART: RR S1S2 ABD: BS+, Soft and nontender Lower extremities: no edema SKIN: nonjaundiced Neuro: grossly intact. DS: Data Data Completed and Pending Labs on day of discharge: Labs from last 24 hours 06/12/20 06/12/20 06/12/20 12:00 08:24 05:13 WBC RBC Hgb Hct MCV MCH MCHC RDW Plt Count MPV Sodium Potassium Chloride Carbon Dioxide Anion Gap BUN Creatinine Estim Creat Clear Calc Estimated GFR Glucose POC Capillary Glucose 192 H 192 H Hemoglobin A1c 6.5 H Calcium Magnesium Total Bilirubin AST ALT Alkaline Phosphatase Troponin I Total Protein Albumin 06/12/20 06/12/20 06/11/20 05:13 05:13 20:10 WBC 7.6 RBC 4.87 Hgb 12.9 L Hct 38.5 L MCV 79.1 L MCH 26.5 MCHC 33.5 RDW 15.3 H Plt Count 142 L MPV 11.0 H Sodium 140 Potassium 3.6 Chloride 103 Carbon Dioxide 29 Anion Gap 8 BUN 9 Creatinine 0.70 Estim Creat Clear Calc 102 Estimated GFR > 60 Glucose 171 H POC Capillary Glucose Hemoglobin A1c Calcium 8.4 Magnesium 1.7 Total Bilirubin 0.6 AST 20 ALT 15 Alkaline Phosphatase 47 Troponin I < 0.012 Total Protein 7.0 Albumin 3.8 06/11/20 17:32 WBC RBC Hgb Hct MCV MCH MCHC RDW Plt Count MPV Sodium Potassium Chloride Carbon Dioxide Anion Gap BUN Creatinine Estim Creat Clear Calc Estimated GFR Glucose POC Capillary Glucose Hemoglobin A1c Calcium Magnesium Total Bilirubin AST ALT Alkaline Phosphatase Tropo
[2020-06-12] MEDS: APIXABAN 5 MG TABLET PO (17:23)
== END 2020-06-12 17:49 | disposition home or self-care (01) ==
LOC: ANHED 14:41 → ANHIMU 06-12 16:42
PROVIDERS: Emergency Medicine; Physician Assistant; Admitting Provider Internal Medicine; Emergency Provider Emergency Medicine; PCP Family Medicine; Visit Provider Family Medicine
DX: I11.0 Hypertensive heart disease with heart failure (principal); I50.9 Heart failure, unspecified; R07.89 Other chest pain; R06.02 Shortness of breath; I25.119 Atherosclerotic heart disease of native coronary artery with unspecified angina pectoris; I48.92 Unspecified atrial flutter; I35.2 Nonrheumatic aortic (valve) stenosis with insufficiency; E78.5 Hyperlipidemia, unspecified; K21.9 Gastro-esophageal reflux disease without esophagitis; E78.2 Mixed hyperlipidemia; G47.33 Obstructive sleep apnea (adult) (pediatric); E11.52 Type 2 diabetes mellitus with diabetic peripheral angiopathy with gangrene; Z86.16 Personal history of COVID-19; Z95.1 Presence of aortocoronary bypass graft; Z79.02 Long term (current) use of antithrombotics/antiplatelets; Z79.4 Long term (current) use of insulin; Z79.84 Long term (current) use of oral hypoglycemic drugs; E66.9 Obesity, unspecified; Z68.36 Body mass index [BMI] 36.0-36.9, adult; Z95.5 Presence of coronary angioplasty implant and graft; Z95.820 Peripheral vascular angioplasty status with implants and grafts; Z87.891 Personal history of nicotine dependence; Z79.01 Long term (current) use of anticoagulants
CPT/HCPCS: 36415; 71046; 80048; 80053; 83036; 83735; 83880; 84484; 85025; 85027; 93005; 93970; 96374; 96376; 99285; A9270; C8929; G0378; J1815; J1940; Q9957

== ENCOUNTER 2021-03-28 08:02 | Outpatient (CLI) | payer MEDICARE, SELFPAY ==
--- NOTE | ~2021-03-28 | US_ITS ---
EXAMINATION: US art doppler w press ALAN CHUN EXAM DATE: 03/28/2021 08:55 INDICATION: SP angioplasty with right stent; peripheral arterial disease. Hypertension, cardiac bypas s surgery. TECHNIQUE: Segmental pressures and plethysmographic and Doppler waveforms of the brachial and lower e xtremity arteries were obtained. There is no prior study for comparison. FINDINGS: Right and left brachial artery pressures of 148 mm Hg and 148 mm Hg, respectively, are concordant (no rmal difference <= 30 mmHg). RIGHT LEG: The ankle-brachial index (JULISSA) is 1.05 (normal >= 0.9-1). The great toe-brachial index (TBI) is 0.82 (normal >= 0.65). The lower extremity ratios, segmental pressure gradients as follows; Dorsalis pedis: 0.97 (144 mmHg). Posterior tibial: 1.05 (155 mmHg). (Normal gradients <= 20-30 mmHg between adjacent levels on the same leg or the same levels on the two legs). Arterial waveforms are biphasic through popliteal, monophas ic below. LEFT LEG: The ankle-brachial index (JULISSA) is 1.06 (normal >= 0.9-1). The great toe-brachial index (TBI) is 0.98 (normal >= 0.65). The lower extremity ratios, segmental pressure gradients as follows; Proximal superficial femoral artery:- 1.28 (189 mmHg). Distal superficial femoral artery: ----- 1.18 (174 mmHg). Popliteal: 1.15 (170 mmHg). Dorsalis pedis: 0.93 (138 mmHg). Posterior tibial: 1.06 (157 mmHg). (Normal gradients <= 20-30 mmHg between adjacent levels on the same leg or the same levels on the two legs). Arterial waveforms are biphasic through posterior tibial, m onophasic dorsalis pedis. IMPRESSION: 1. Right ankle-brachial index 1.05, normal. 2. Left ankle-brachial index 1.06, normal. 3. Segmental pressures as above. Reviewed, dictated and finalized at location B.
== END 2021-03-28 08:03 | disposition home or self-care (01) ==
LOC: ANHIMG 08:08
PROVIDERS: PCP Family Medicine; Visit Provider Internal Medicine Cardiovascular Disease
DX: I73.9 Peripheral vascular disease, unspecified (principal); Z95.820 Peripheral vascular angioplasty status with implants and grafts
CPT/HCPCS: 93923

== ENCOUNTER 2023-03-05 08:46 | Emergency (ER) | payer MEDICARE, SELFPAY ==
--- NOTE | ~2023-03-05 | XR_ITS ---
EXAMINATION: XR finger 3rd RT min 2V DATE: 03/05/2023 09:17 INDICATION: Splinter versus foreign body at the nailbed of the right third digit TECHNIQUE: Dorsal palmar, lateral and 2 oblique views of the right third digit were obtained COMPARISON: None FINDINGS: Bone alignment is normal. No fracture. Polyarticular osteoarthritis at the second, third and fourth i nterphalangeal joints, mild at the proximal interphalangeal joints and moderate severity at the dista l interphalangeal joints. No radiopaque foreign bodies identified. IMPRESSION: 1. 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 No acute osseous abnormality or radiopaque foreign bodies. Reviewed, dictated and finalized at location A. IMPRESSION: 1. 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 No acute osseous abnormality or radiopaque foreig n bodies.
[2023-03-05 08:50] VITALS: BP 161/75; PULSE 65; RESP 15; TEMP 36.6; O2SAT 98
--- NOTE | 2023-03-05 08:53 | ED.WOUNDLAC ---
HPI - Wound/Laceration General Chief Complaint: Wound/Laceration <PHYLLIS Awan Last Filed: 03/05/23 17:11> Stated Complaint: splinter in finger <PHYLLIS Awan Last Filed: 03/05/23 17:11> Time Seen by Provider: 03/05/23 08:50 <PHYLLIS Awan Last Filed: 03/05/23 17:11> Source: patient <PHYLLIS Awan Last Filed: 03/05/23 17:11> Mode of arrival: ambulatory <PHYLLIS Awan Last Filed: 03/05/23 17:11> Limitations: no limitations <PHYLLIS Awan Last Filed: 03/05/23 17:11> History of Present Illness HPI narrative: Patient is a 67 y/o male who presents to the ED with c/o splinter in his finger. Patient reports he was working on his deck on Friday and felt like he sustained a splinter to his right third finger. He pulled his hand away and did not notice any splinter, but noticed a shadow along the edge of his nail the next day. Today he began having slight bloody drainage and increased pain from the finger/nail, which prompted his presentation. Denies any fever. He has been trying to use a salve at home. <PHYLLIS Awan Last Filed: 03/05/23 17:11> Related Data Home Medications: Home Medications Medication Instructions Recorded Confirmed clopidogrel 75 mg tablet 75 mg PO DAILY 01/04/20 01/31/23 furosemide 40 mg tablet 40 mg PO DAILY 01/04/20 01/31/23 icosapent ethyl 1 gram capsule 2 g PO BID 01/04/20 01/31/23 (Vascepa) insulin glargine 100 unit/mL 75 unit subcut DAILY 01/04/20 01/31/23 subcutaneous solution (Lantus U-100 Insulin) nitroglycerin 0.4 mg sublingual 0.4 mg sublingual Q5M PRN Chest 01/04/20 01/31/23 tablet (Nitrostat) Pain rosuvastatin 40 mg tablet (Crestor) 40 mg PO DAILY 01/04/20 01/31/23 alpha lipoic acid 200 mg capsule 200 mg PO TID 05/17/20 01/31/23 isosorbide mononitrate 30 mg 30 mg PO DAILY 05/17/20 01/31/23 tablet,extended release 24 hr metformin 500 mg tablet 1,000 mg PO BID 05/17/20 01/31/23 semaglutide 1 mg/dose (2 mg/1.5 1 mg subcut WEEKLY 05/17/20 01/31/23 mL) subcutaneous pen injector (Ozempic) metoprolol tartrate 25 mg tablet 50 mg PO BID 06/11/20 01/31/23 <Chanelle Che PA-C - Last Filed: 03/05/23 17:11> Allergies/Adverse Reactions: Allergies Allergy/AdvReac Type Severity Reaction Status Date / Time No Known Allergies Allergy Verified 01/31/23 08:53 <Chanelle Che PA-C - Last Filed: 03/05/23 17:11> Review of Systems Review of Systems: CONSTITUTIONAL: Denies fever, chills, or sweats. SKIN: See HPI. MUSCULOSKELETAL: See HPI. NEUROLOGIC: Denies tingling, numbness, or weakness. <Chanelle Che PA-C - Last Filed: 03/05/23 17:11> All systems reviewed & are unremarkable except as noted in HPI and below <Chanelle Che PA-C - Last Filed: 03/05/23 17:11> [facility] Past Medical History Medical History: Medical History Aortic regurgitation Aortic stenosis Congestive heart failure Coronary artery disease COVID-19 (~04/2020) Essential hypertension Gastroesophageal reflux disease Insulin dependent type 2 diabetes mellitus Left ventricular hypertrophy Mixed hyperlipidemia Obstructive sleep apnea on CPAP Peripheral vascular disease <Chanelle Che PA-C - Last Filed: 03/05/23 17:11> Surgical History Surgical History: Surgical History History of cardiac catheterization With several stents, most recent in January 2020. History of vascular surgery Right lower extremity stent. Status post coronary artery bypass grafts x 5 (~04/16/15) Performed at [facility]. <Chanelle Che PA-C - Last Filed: 03/05/23 17:11> Family History Family History: Family History Father Dece
[2023-03-05 11:50] VITALS: BP 158/89; PULSE 62; RESP 16; O2SAT 99
== END 2023-03-05 11:55 | disposition home or self-care (01) ==
PROVIDERS: Emergency Provider Physician Assistant; PCP Family Medicine
DX: S60.452A Superficial foreign body of right middle finger, initial encounter (principal); L03.011 Cellulitis of right finger; I35.1 Nonrheumatic aortic (valve) insufficiency; I25.10 Atherosclerotic heart disease of native coronary artery without angina pectoris; I10 Essential (primary) hypertension; I73.9 Peripheral vascular disease, unspecified; E11.9 Type 2 diabetes mellitus without complications; E78.2 Mixed hyperlipidemia; K21.9 Gastro-esophageal reflux disease without esophagitis; G47.33 Obstructive sleep apnea (adult) (pediatric); Z95.1 Presence of aortocoronary bypass graft; Z86.16 Personal history of COVID-19; Z87.891 Personal history of nicotine dependence; Z79.01 Long term (current) use of anticoagulants; Z79.84 Long term (current) use of oral hypoglycemic drugs; Z79.4 Long term (current) use of insulin; Z79.85 Long-term (current) use of injectable non-insulin antidiabetic drugs; W45.8XXA Other foreign body or object entering through skin, initial encounter
CPT/HCPCS: 10060; 26010; 73140; 99283

== ENCOUNTER 2023-07-31 15:51 | Emergency (ER) | payer MEDICARE, SELFPAY ==
[2023-07-31] VITALS (21 sets, daily range): BP systolic 118–139; BP diastolic 62–73; PULSE 67–77; RESP 13–20; TEMP 36.1; O2SAT 94–99
--- NOTE | ~2023-07-31 | XR_ITS ---
EXAMINATION: XR chest 2V DATE: 07/31/2023 16:18 INDICATION: Chest pain TECHNIQUE: AP and lateral views of the chest are obtained. COMPARISON: 06/11/2020 FINDINGS: There is a mild diffuse interstitial pattern. No pleural effusion or pneumothorax. Cardiome trev is noted. Median sternotomy wires and mediastinal surgical clips are seen, likely from prior cor onary artery bypass grafting. There is moderate thoracic spondylosis. IMPRESSION: 1. Cardiomegaly with probable mild pulmonary edema. Reviewed, dictated and finalized at location [facility]
--- NOTE | 2023-07-31 15:52 | ECG_ITS ---
Measurements Intervals [place] Rate: 67 P: 41 [place]: 188 QRS: 31 QRSD: 102 T: 180 QT: 461 QTc: 490 Interpretive Statements SINUS RHYTHM LEFT VENTRICULAR HYPERTROPHY WITH ST-T CHANGE ST-T WAVE ABNORMALITY IN ANTEROLATERAL LEADS- CONSIDER ISCHEMIA ABNORMAL ECG ST-T WAVE ABNORMALITY NOW PRESENT COMPARED TO ECG 06/11/2020 12:43:35 ST-T WAVE ABNORMALITY NOW PRESENT Electronically Signed On 08-01-2023 6:28:33 SURVEY COORDINATOR by Jonathon Lea D.O.
[2023-07-31] MEDS: ASPIRIN 81 MG CHEWABLE TABLET 324 MG PO (16:31)
[2023-07-31 16:32] LABS: Basophils Percent Auto 0.3 % (0.2-1.2); Eosinophils Absolute Auto 0.2 K/mm3 (0-0.3); Hematocrit 41.7 % (42.0-52.0); Hemoglobin 13.4 g/dL (14.0-18.0); Immature Granulocyte Absolute 0.02 K/mm3 (0.00-0.031); Immature Granulocyte Percent A 0.3 % (0-0.5); Lymphocytes Absolute Auto 1.51 K/mm3 (0.9-3.2); Lymphocytes Percent Auto 19.8 % (18.3-44.2); Mean Corpuscular HGB Conc 32.1 g/dl (32-36); Mean Corpuscular Volume 84.1 fl (80-100); Mean Platelet Volume 10.6 fl (7.4-10.4); Monocytes Absolute Auto 0.6 K/mm3 (0.1-0.6); Monocytes Percent Auto 7.7 % (2.6-8.5); Neutrophils Absolute Auto 5.3 K/mm3 (1.3-6.7); Neutrophils Percent Auto 69.9 % (45.5-73.1); Platelet Count Result 170 k/mm3 (150-375); Red Blood Count 4.96 M/mm3 (4.6-6.20); Red Cell Distribution Width 14.7 % (11.5-14.5); White Blood Count 7.6 K/mm3 (4.5-10.0)
[2023-07-31 16:42] LABS: Alanine Aminotransferase 27 U/L (6-50); Albumin Level 4.4 g/dL (3.5-5.1); Alkaline Phosphatase 52 U/L (38-126); Anion Gap 6 mmol/L (8-16); Aspartate Amino Transferase 33 U/L (17-59); Bilirubin,Total 0.4 mg/dL (0.2-1.3); Blood Urea Nitrogen 15 mg/dL (9-20); Calcium 9.1 mg/dL (8.4-10.2); Carbon Dioxide 28 mmol/L (22-30); Chloride 109 mmol/L (98-107); Estimated CRCL calculation 81 ml/min; Estimated Glomerular Filt Rate > 60; Glucose 146 mg/dL (65-110); Lipase 63 U/L (23-300); Potassium 3.8 mmol/L (3.4-5.0); Sodium 143 mmol/L (137-145)
[2023-07-31 16:50] LABS: Partial Thromboplastin Time 29.4 SECONDS (22.3-36.8); Prothrombin Time 13.5 Seconds (11.1-14.7)
[2023-07-31 16:53] LABS: Troponin I < 0.012 ng/mL (0.000-0.034)
--- NOTE | 2023-07-31 17:00 | ECG_ITS ---
Measurements Intervals [place] Rate: 68 P: 7 [place]: 193 QRS: 30 QRSD: 92 T: 180 QT: 445 QTc: 474 Interpretive Statements SINUS RHYTHM LEFT VENTRICULAR HYPERTROPHY WITH ST-T CHANGE ST-T WAVE ABNORMALITY IN ANTEROLATERAL LEADS- CONSIDER ISCHEMIA BASELINE WANDER- I, II ABNORMAL ECG COMPARED TO ECG 07/31/2023 15:57:29 NO SIGNIFICANT CHANGES Electronically Signed On 08-01-2023 6:32:29 ELECTRONIC MAINTENANCE SUPERVISOR by Jonathon Lea D.O.
--- NOTE | 2023-07-31 17:24 | ED.CHESTPAIN ---
HPI - Chest Pain General Chief Complaint: Chest Pain Stated Complaint: CHEST PRESSURE/PAIN IN ARMS Time Seen by Provider: 07/31/23 16:11 History of Present Illness HPI narrative: This is a 60-year-old male, with history of coronary artery disease, status post 4 vessel CABG 4 years ago and catheterization with stent placement 2 years ago, who presents emergency department complaining of chest pain. The patient states approximately 3 hours prior to arrival, he was walking when he felt substernal pressure-like chest pain with radiation to the bilateral arms rated 5/10. The pain is associated with some nausea, exacerbated by exertion though has since improved. He denies loss of consciousness, shortness of breath, weakness/ numbness or bleeding of any kind. Related Data Home Medications Medication Instructions Recorded Confirmed clopidogrel 75 mg tablet 75 mg PO DAILY 01/04/20 01/31/23 furosemide 40 mg tablet 40 mg PO DAILY 01/04/20 01/31/23 icosapent ethyl 1 gram capsule 2 g PO BID 01/04/20 01/31/23 (Vascepa) insulin glargine 100 unit/mL 75 unit subcut DAILY 01/04/20 01/31/23 subcutaneous solution (Lantus U-100 Insulin) nitroglycerin 0.4 mg sublingual 0.4 mg sublingual Q5M PRN Chest 01/04/20 01/31/23 tablet (Nitrostat) Pain rosuvastatin 40 mg tablet (Crestor) 40 mg PO DAILY 01/04/20 01/31/23 alpha lipoic acid 200 mg capsule 200 mg PO TID 05/17/20 01/31/23 isosorbide mononitrate 30 mg 30 mg PO DAILY 05/17/20 01/31/23 tablet,extended release 24 hr metformin 500 mg tablet 1,000 mg PO BID 05/17/20 01/31/23 semaglutide 1 mg/dose (2 mg/1.5 1 mg subcut WEEKLY 05/17/20 01/31/23 mL) subcutaneous pen injector (Ozempic) metoprolol tartrate 25 mg tablet 50 mg PO BID 06/11/20 01/31/23 Allergies Allergy/AdvReac Type Severity Reaction Status Date / Time No Known Allergies Allergy Verified 07/31/23 16:31 Review of Systems Review of Systems: CONSTITUTIONAL: Denies fever, chills, or sweats. CARDIOVASCULAR: Chest pain Denies palpitations, or edema. RESPIRATORY: Dyspnea Denies cough GASTROINTESTINAL: Nausea Denies abdominal pain, vomiting, or diarrhea. GENITOURINARY: Denies dysuria or hematuria. SKIN: Denies rash or itching. MUSCULOSKELETAL: Denies back pain, joint pain, or myalgia. NEUROLOGIC: Denies headache, numbness, dizziness, or weakness. PSYCHIATRIC: Denies anxiety or depression. [facility] Past Medical History Medical History Aortic regurgitation Aortic stenosis Congestive heart failure Coronary artery disease COVID-19 (~04/2020) Essential hypertension Gastroesophageal reflux disease Insulin dependent type 2 diabetes mellitus Left ventricular hypertrophy Mixed hyperlipidemia Obstructive sleep apnea on CPAP Peripheral vascular disease Surgical History Surgical History History of cardiac catheterization With several stents, most recent in January 2020. History of vascular surgery Right lower extremity stent. Status post coronary artery bypass grafts x 5 (~04/16/15) Performed at [facility]. Family History Family History Father Patient's father is Other Family history of cardiovascular disease Hypertension Social History Social History Social History: The patient lives in [place] with his . 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 Former smoker. No alcohol or illicit substance abuse. He designates his Aarti as his surrogate decision maker and he wishes to be a full code. Smoking status: Former smoker Lack of Transportation: No Lack of Food: Never True Current Housing: I Have Housing Concerned About Future Housing: No Difficulty Paying Gas/Electric Bills: No Difficulty Paying for Meds: No C
[2023-07-31 19:28] LABS: Troponin I 0.013 ng/mL (0.000-0.034)
== END 2023-07-31 20:08 | disposition home or self-care (01) ==
PROVIDERS: Emergency Provider Preventive Medicine Aerospace Medicine; PCP Family Medicine
DX: I25.118 Atherosclerotic heart disease of native coronary artery with other forms of angina pectoris (principal); I35.2 Nonrheumatic aortic (valve) stenosis with insufficiency; I50.9 Heart failure, unspecified; I11.0 Hypertensive heart disease with heart failure; I73.9 Peripheral vascular disease, unspecified; I51.7 Cardiomegaly; E11.9 Type 2 diabetes mellitus without complications; E78.2 Mixed hyperlipidemia; K21.9 Gastro-esophageal reflux disease without esophagitis; G47.33 Obstructive sleep apnea (adult) (pediatric); Z86.73 Personal history of transient ischemic attack (TIA), and cerebral infarction without residual deficits; Z87.891 Personal history of nicotine dependence; Z95.1 Presence of aortocoronary bypass graft; Z95.5 Presence of coronary angioplasty implant and graft; Z79.85 Long-term (current) use of injectable non-insulin antidiabetic drugs; Z79.4 Long term (current) use of insulin; R94.31 Abnormal electrocardiogram [ECG] [EKG]
CPT/HCPCS: 36415; 71046; 80053; 83690; 84484; 85025; 85610; 85730; 93005; 99284; A9270

== ENCOUNTER 2024-06-30 12:57 | Outpatient (CLI) | payer MEDICARE, SELFPAY ==
--- OUTSIDE RECORDS SUMMARY | 2024-06-30 13:59 | XMS_ITS | Referral Summary ---
Author Organization [facility] [address] [place] [address] [address] [place] [address] 162 [place] [address] Care Team Providers Care Manager Client Support Name Role Phone Michele Harp MD Primary Care Provider [phone] Encounters Date Type Department Care Team Description 06/29/2024 2:00 PM COMMAND AND CONTROL SPECIALIST Ancillary Procedure [facility] Vascular and Vein Surgery at [address] [place] [address] PAD (peripheral artery disease) ([facility]) 06/16/2024 Orders Only [facility] [address] [place] [address] [address] [place] [address] Ayanna Bush MD 06/16/2024 9:45 AM COMMAND AND CONTROL SPECIALIST Office Visit [address] [place] [address] J Carlos Lake MD S/P TAVR (transcatheter aortic valve replacement) (Primary Dx); Coronary artery disease involving lower sioux coronary artery of lower sioux heart without angina pectoris; S/P CABG x 5; Paroxysmal atrial flutter (CMS/HCC) (HCC); Chronic anticoagulation; Hypertension associated with diabetes (HCC); PAD (peripheral artery disease) ([facility]) 04/07/2024 9:15 AM COMMAND AND CONTROL SPECIALIST Ancillary Procedure [facility] [address] [place] [address] [address] [place] [address] S/P TAVR (transcatheter aortic valve replacement) from Last 3 Months Allergies No known active allergies Medications blood glucose diagnostic (ONETOUCH ULTRA TEST) strip 0 0 4 Active lancets (onetouch ultrasoft) misc 0 each 0 4 Active VASCEPA 1 gram capsule Take 2 capsules (2 g total) by mouth 2 (two) times a day 9 Active alpha lipoic acid 100 mg capsule Take 2 capsules (200 mg total) by mouth 2 (two) times a day Active glimepiride (AMARYL) 4 mg tablet Take 1 tablet (4 mg total) by mouth daily [address] (PROTONIX) 40 mg EC tablet Take 1 tablet (40 mg total) by mouth 2 (two) times a day 3 Active nitroglycerin (NITROSTAT) 0.[address] 1 tablet (0.4 mg total) under the tongue every 5 (five) minutes as needed for chest pain 25 tablet 3 Active tirzepatide (MOUNJARO) 10 mg/0.5 mL pen injector Inject 10 mg under the skin once a week Mondays 3 Active LANTUS 100 unit/mL (3 mL) pen for injection Inject 65 Units under the skin nightly 4 Active metFORMIN XR (GLUCOPHAGE XR) 500 mg 24 hr tablet Take 2 tablets (1,000 mg total) by mouth 2 (two) times a day 4 Active fexofenadine (WES) 60 mg tablet Take 1 tablet (60 mg total) by mouth 2 (two) times a day as needed Active multivitamin tabletIndication s:Vitamin Deficiency Prevention Take 1 tablet by mouth daily Active potassium gluconate 595 mg (99 mg) tablet Take 1 tablet (595 mg total) by mouth daily Patient takes every other day Active magnesium oxide 400 mg magnesium capsule Take 1 capsule by mouth daily Patient taking every other day Active cephalexin (KEFLEX) 500 mg capsule Take 1 capsule (500 mg total) by mouth every 6 (six) hours 4 Active apixaban (Eliquis) 5 mg tabletIndication s:Paroxysmal atrial flutter (CMS/HCC) (HCC) TAKE 1 TABLET BY MOUTH TWICE DAILY 180 tablet 3 4 Active furosemide (LASIX) 40 mg tablet TAKE 1 TABLET BY MOUTH DAILY 90 tablet 3 4 Active lisinopriL (PRINIVIL,ZESTRI L) 20 mg tablet TAKE 1 TABLET BY MOUTH DAILY 90 tablet 3 4 Active rosuvastatin (CRESTOR) 40 mg tablet TAKE 1 TABLET BY MOUTH DAILY 90 tablet 3 4 Active metoprolol tartrate (LOPRESSOR) 50 mg immediate release tablet TAKE 1 TABLET BY MOUTH TWICE DAILY 180 tablet 3 4 Active clopidogreL (PLAVIX) 75 mg tablet TAKE 1 TABLET BY MOUTH DAILY 90 tablet 3 4 Active isosorbide mononitrate ER (IMDUR) 60 mg 24 hr tablet Take 1 tablet (60 mg total) by mouth daily 90 tablet 1 4 Active Active Problems Problem Noted Date Diagnosed Date S/p TAVR (transcatheter aort ic valve replacement), bioprosthetic 09/25/2023 Severe aortic stenosis 08/25/2023 Morbid (severe) obesity due to excess calories 1 COVID-19 virus infection 05/01/2020 Assessment & Plan (05/03/2020 9:44 AM COMMAND AND CONTROL SPECIALIST): - He presented with malaise, cough, shortness of breath. Symptoms began approximately on 2020. Vital signs on admission hypoxemia. A CXR obtained on admission showed bilateral infiltrates. - COVID-19 RNA PCR was sent on April 20, 2020 at [facility] in [facility].. The patient's testing for COVID-19 is POSITIVE. The patient has evidence of viral pneumonia related to COVID-19. - Clinical complications of COVID-19 include: acute hypoxic respiratory failure - Labs are pertinent for normal renal function. - The patient previously required supplemental oxygen. Closely monitor continuous pulse oximetry for evidence of decompensation. Wean oxygen as tolerated. - Prior and active treatments: Started remdesivir and dexamethasone on May 01, 2020. - Continue supportive care with antitussives and antipyretics as needed. COVID- 19 droplet and contact precautions per hospital protocol. Given improvement and now off oxygen, patient likely stable for discharge soon - O2 eval today and then decide Assessment & Plan (05/02/2020 9:46 AM COMMAND AND CONTROL SPECIALIST): - He presented with malaise, cough, shortness of breath. Symptoms began approximately on 2020. Vital signs on admission hypoxemia. A CXR obtained on admission showed bilateral infiltrates. - COVID-19 RNA PCR was sent on April 20, 2020 at [facility].. The patient's testing for COVID-19 is POSITIVE. The patient has evidence of viral pneumonia related to COVID-19. - Clinical complications of COVID-19 include: acute hypoxic respiratory failure - Labs are pertinent for normal renal function. - The patient currently requires supplemental oxygen. Sats are currently 98% on 2 L of oxygen. Closely monitor continuous pulse oximetry for evidence of decompensation. Wean oxygen as tolerated. - Prior and active treatments: Starting remdesivir and dexamethasone on May 01, 2020. - Continue supportive care with antitussives and antipyretics as needed. COVID- 19 droplet and contact precautions per hospital protocol. I discussed possible convalescent plasma with the patient and will monitor his response with current treatment as per above over the next 1-2 days before deciding on this treatment. Assessment & Plan (05/01/2020 6:15 PM COMMAND AND CONTROL SPECIALIST): - He presented with malaise, cough, shortness of breath. Symptoms began approximately on 2020. Vital signs on admission hypoxemia. A CXR obtained on admission showed bilateral infiltrates. - COVID-19 RNA PCR was sent on April 20, 2020 at [facility] in [facility].. The patient's testing for COVID-19 is POSITIVE. The patient has evidence of viral pneumonia related to COVID-19. - Clinical complications of COVID-19 include: acute hypoxic respiratory failure - Labs are pertinent for normal renal function. - The patient currently requires supplemental oxygen. Sats are currently 98% on 2 L of oxygen. Closely monitor continuous pulse oximetry for evidence of decompensation. Wean oxygen as tolerated. - Prior and active treatments: Starting remdesivir and dexamethasone on May 01, 2020. - Continue supportive care with antitussives and antipyretics as needed. COVID- 19 droplet and contact precautions per hospital protocol. I discussed possible convalescent plasma with the patient and will monitor his response with current treatment as per above over the next 1-2 days before deciding on this treatment. Acute respiratory failure due to COVID-19 2019 Assessment & Plan (05/03/2020 9:45 AM COMMAND AND CONTROL SPECIALIST): This seems to be improved. I have asked the pulmonary rehab team to evaluate the patient to see if he might need oxygen at discharge - possible discharge later today or tomorrow Assessment & Plan (05/02/2020 9:46 AM COMMAND AND CONTROL SPECIALIST): I will treat the patient with oxygen to maintain adequate oxygenation and treat his other issues as per below. Assessment & Plan (05/01/2020 6:15 PM COMMAND AND CONTROL SPECIALIST): I will treat the patient with oxygen to maintain adequate oxygenation and treat his other issues as per below. DM2 (diabetes mellitus, type 2) 05/01/2020 Assessment & Plan (05/03/2020 9:43 AM COMMAND AND CONTROL SPECIALIST): Doing well on current Lantus at night and NPH with dexamethasone - likely continue this at discharge Assessment & Plan (05/02/2020 9:46 AM COMMAND AND CONTROL SPECIALIST): Lantus reduced to 40 units last night - will give NPH with dexamethasone today and follow sugars Assessment & Plan (05/01/2020 6:12 PM COMMAND AND CONTROL SPECIALIST): As per history of present illness, patient has been having normal blood sugars without any insulin recently per his report. Therefore, I would decrease his long-acting Lantus to 40 units at night. Given that he will be on dexamethasone as per above, I will give NPH 20 units with each dose. I will check frequent blood sugars intact make titration is as warranted. I will hold his empagliflozin as well as his metformin for now. Paroxysmal atrial flutter ([facility]) 04/05/2020 Assessment & Plan (05/03/2020 9:44 AM COMMAND AND CONTROL SPECIALIST): Continue apixaban, BB Chronic anticoagulation 04/05/2020 Aortic stenosis 02/01/2020 Claudication in peripheral vascular disease ([facility] /HCC) 02/01/2020 PAD (peripheral artery disease) 01/04/2020 Overview (01/04/2020): Added automatically from request for surgery [id number] Assessment & Plan (05/03/2020 9:42 AM COMMAND AND CONTROL SPECIALIST): I will continue patient's clopidogrel and statin therapy Assessment & Plan (05/02/2020 9:45 AM COMMAND AND CONTROL SPECIALIST): I will continue patient's clopidogrel and statin therapy Assessment & Plan (05/01/2020 6:11 PM COMMAND AND CONTROL SPECIALIST): I will continue patient's clopidogrel and statin therapy Systolic murmur 07/05/2019 Class 2 severe obesity due t o excess calories with serious comorbidity and body mass index (BMI) of 39.0 to 39.9 in adult 09/24/2017 Assessment & Plan (05/02/2020 9:46 AM COMMAND AND CONTROL SPECIALIST): This raises patient's complication risk related to COVID-19 Assessment & Plan (05/01/2020 6:14 PM COMMAND AND CONTROL SPECIALIST): This raises patient's complication risk related to COVID-19 Coronary artery disease of n ative artery of lower sioux heart with stable angina pectoris ([facility]) 03/18/2017 Hx of CABG 03/18/2017 Hypertension associated with diabetes 03/18/2017 S/P coronary artery stent placement 03/18/2017 Obesity with body mass index 30 or greater 02/14 Overview (09/06/2016): Obesity (BMI 35.0-39.9 without comorbidity) Mixed diabetic hyperlipidemi a associated with type 2 diabetes mellitus ([facility]) 12/11/2015 Overview (09/06/2016): DM type 2 with diabetic dyslipidemia Assessment & Plan (05/03/2020 9:42 AM COMMAND AND CONTROL SPECIALIST): Continue statin therapy Assessment & Plan (05/02/2020 9:45 AM COMMAND AND CONTROL SPECIALIST): Continue statin therapy Assessment & Plan (05/01/2020 6:11 PM COMMAND AND CONTROL SPECIALIST): Continue statin therapy Exercise-induced angina 03/01/2015 Overview (09/06/2016): Angina of effort ROYER on CPAP 03/01/2015 Overview (09/06/2016): ROYER on CPAP Assessment & Plan (05/03/2020 9:42 AM COMMAND AND CONTROL SPECIALIST): - continue CPAP at night Assessment & Plan (05/02/2020 9:45 AM COMMAND AND CONTROL SPECIALIST): While normally we avoid CPAP in the setting of COVID-19 infection in the hospital, patient tells me that he becomes quite short of breath and has significant apnea without it - continue CPAP at night Assessment & Plan (05/01/2020 6:11 PM COMMAND AND CONTROL SPECIALIST): While normally we avoid CPAP in the setting of COVID-19 infection in the hospital, patient tells me that he becomes quite short of breath and has significant apnea without it. Therefore, I will ask respiratory therapy to titrate his CPAP while he is in the hospital. Abnormal cardiovascular stress test 03/01/2015 Overview (09/06/2016): Abnormal stress test Resolved Problems Problem Noted Date Diagnosed Date Resolved Date Chronic coronary artery disease 03/08/2015 12/07/2021 Assessment & Plan (05/03/2020 9:44 AM COMMAND AND CONTROL SPECIALIST): I will continue patient's Plavix, statin, and beta-elan therapy. Assessment & Plan (05/02/2020 9:46 AM COMMAND AND CONTROL SPECIALIST): I will continue patient's Plavix, statin, and beta-elan therapy. Assessment & Plan (05/01/2020 6:15 PM COMMAND AND CONTROL SPECIALIST): I will continue patient's Plavix, statin, and beta-elan therapy. Social History Tobacco Use Types Packs/Day Years Used Date Smoking Tobacco: Former Cigarettes 0 12/31/1973 - 12/31/1982 Smokeless Tobacco: Never Tobacco Cessation:Counseling Given: Not Answered Comments:N/A Alcohol Use Standard Drinks/Week Comments Yes 0 (1 standard drink = 0.6 oz pur e alcohol) AUDIT-C Answer Date Recorded Q1: How often do you have a drink containing alcohol? Never 09/25/2023 Q2: How many drinks containi ng alcohol do you have on a typical day when you are drinking? Patient does not drink Q3: How often do you have si x or more drinks on one occasion? Never 09/25/2023 Personal Safety Answer Date Recorded Have you ever been in or are you currently in a harmful physical or emotional relationship or is someone making you feel afraid or unsafe? Denies 09/25/2023 Sex and Gender Information Value Date Recorded Sex Assigned at Not on file Legal Sex Male 2:06 AM COMMAND AND CONTROL SPECIALIST Gender Identity Not on file Sexual Orientation Not on file Last Filed Vital Signs Vital Sign Reading Time Taken Comments Blood Pressure 126/58 06/16/2024 9:47 AM COMMAND AND CONTROL SPECIALIST Pulse 70 06/16/2024 9:47 AM COMMAND AND CONTROL SPECIALIST Temperature 36.7 ??C (98.1 ??F) 09/26/2023 1:09 PM CD T Respiratory Rate 20 09/26/2023 1:09 PM CDT Oxygen Saturation 97% 06/16/2024 9:47 AM COMMAND AND CONTROL SPECIALIST Inhaled Oxygen Concentration - - Weight 106.1 kg (234 lb) 06/16/2024 9:47 AM COMMAND AND CONTROL SPECIALIST Height 167.6 cm (5' 6 ) 06/16/2024 9:47 AM COMMAND AND CONTROL SPECIALIST Body Mass Index 37.77 06/16/2024 9:47 AM COMMAND AND CONTROL SPECIALIST Plan of Treatment Not on file Medical Devices Implanted Type Area Auto Damage Trainee Device Identifier Shelf Expiration Date Model / Serial / Lot Everpay [id number] Synergy 3mm 20mm 144cm Radiopaque 1 Access Port Inflation Lumen - [id number] Implanted:Qty: 1 on 01/13/2020 by J Carlos Lake MD at [facility] Everpay [id number] / / Everpay [id number] Synergy 3.5mm 24mm 144cm Radiopaque 1 Access Port Inflation Lumen - [id number] Implanted:Qty: 1 on 01/13/2020 by J Carlos Lake MD at [facility] Everpay [id number] / / Celsion Johanna [id number] Device Closure Angio-Seal Vip Bondek-Plus Polyglyd L70 Cm Od6 Fr Odsec.035 In Vascular - [id number] Implanted:Qty: 1 on 01/13/2020 by J Carlos Lake MD at [facility] [id number] / / [place] Peripheral Vascular [id number] Lifestream 8mm 26mm 80cm Balloon Expandable Low Profile Cover - [id number] Implanted:Qty: 1 on 03/09/2020 by J Carlos Lake MD at [facility] Peripheral Vascular [id number] / / Daig Johanna [id number] Device Closure Angio-Seal Vip Bondek-Plus Polyglyd L70 Cm Od6 Fr Odsec.035 In Vascular - [id number] Implanted:Qty: 1 on 03/09/2020 by J Carlos Lake MD at [facility] [id number] / / Daig Johanna [id number] Device Closure Angio-Seal Vip Bondek-Plus Polyglyd L70 Cm Od6 Fr Odsec.035 In Vascular - [id number] Implanted:Qty: 1 on 03/09/2020 by J Carlos Lake MD at [facility] [id number] / / Medtronic Card Vasc Surgery 3.5 X 15mm Jasbir Massac Rx Coronary Stent [id number] - [id number] Implanted:Qty: 1 on 2023 by J Carlos Lake MD at [facility] Card Vasc Surgery 01/21/2026 [id number] / / [id number] [employer] Device Vascular Closure Femoral Artery Bioabsorbable Dual Method Vascade 6-7fr Collagen [id number] - [id number] Implanted:Qty: 1 on 2023 by J Carlos Lake MD at [facility] [employer] 12/24/2024 [id number] / / [id number] [employer] Vascular Device Clsr Perclose Prostyle Sut-Mediatd Closure-Repair Sys 66875-78 - [id number] Implanted:Qty: 1 on 09/25/2023 by J Carlos Lake MD at [facility] [employer] V[employer] 06/01/2025 [id number] / / [id number] [employer] Vascular Device Clsr Perclose Prostyle Sut-Mediatd Closure-Repair Sys 75743-31 - [id number] Implanted:Qty: 1 on 09/25/2023 by J Carlos Lake MD at [facility] [employer] Vascular 07/02/2025 [id number] / / [id number] [employer] Device Closure Vascade Od5 Fr Femoral Artery [id number] - [id number] Implanted:Qty: 1 on 09/25/2023 by J Carlos Lake MD at [facility] [employer] 04/28/2025 [id number] / / [id number] [employer]iences Valve Aortic Trnscath August 3 Ultra Resilia 26mm [id number] - [id number] - [id number] Implanted:Qty: 1 on 09/25/2023 by J Carlos Lkae MD at [facility] [employer] 10/30/2025 [id number] / [id number] / Procedures Procedure Name Priority Date/Time Associated Diagnosis Comments US ARTERIAL DOPPLER LOWER EXTREMITY BILATERAL Schedule Routine, Read Routine (OP Routine) 06/29/2024 2:28 PM COMMAND AND CONTROL SPECIALIST PAD (peripheral artery disease) (HCC) LIPID PANEL Routine 06/16/2024 11:29 AM COMMAND AND CONTROL SPECIALIST TRANSTHORACIC ECHO (TTE) COMPLETE W DOPPLER/CF WO CONTRAST Routine 04/07/2024 10:06 AM COMMAND AND CONTROL SPECIALIST S/P TAVR (transcatheter aortic valve replacement) EGFR Routine 09/26/2023 5:36 AM CDT HEMOGLOBIN A1C Routine 05/02/2020 9:36 PM COMMAND AND CONTROL SPECIALIST from Last 3 Months or Most Recently Relevant to Health Maintenance Results * US Arterial Doppler Lower Extremity Bilateral (06/29/2024 2:28 PM COMMAND AND CONTROL SPECIALIST) LV EF % CONS SCIMAGE Anatomical Region Laterality Modality Vascular Bilateral Ultrasound 06/29/2024 1:49 PM COMMAND AND CONTROL SPECIALIST Narrative 06/30/2024 1:09 PM COMMAND AND CONTROL SPECIALIST Vascular & Vein Surgery [address] [facility] [place] [address] Lower Extremity Arterial Doppler Report Patient Name: FEDERICO RODRIGUEZ TIMOTHY : 1955 Study Date: 06/29/2024 1:49:00 PM Gender: M Student Services Advisor: Mara Bah RVT Location: [facility] Ref Provider: J CARLOS LAKE ?Quality: Adequate Order Provider: J CARLOS LAKE ?? PROCEDURES: Arterial Report: Bilateral lower extremity arterial Doppler exam at rest. ?? INDICATIONS: S/P BA/stent RCIA 03/09/2020. ?? HISTORY: Hypertension. Hyperlipidemia. Diabetic. ROYER. Coronary artery disease S/P stent/CABG. Afib. Former smoker. ?? COMPARISONS: No previous exams. ?? MEASUREMENTS: Right ?Value ?Left ? Value Rt Brachial Pressure ? 147 mmHg ? Lt Brachial Pressure ? 150 mmHg Rt Calf Pressure ? 137 mmHg ? Lt RECORD FILING CLERK Pressure ?157 mmHg Rt RECORD FILING CLERK Pressure ?141 mmHg ? Lt DPA Pressure ?155 mmHg Rt DPA Pressure ?124 mmHg ? Lt 1st Digit Pressure ?125 mmHg Rt 1st Digit Pressure ?>160 mmHg ?Lt PT JULISSA Resting ?1.05 Rt Calf Index ?0.91 ? Lt DP JULISSA Resting ?1.03 Rt PT JULISSA Resting ?0.94 ? Lt Digit 1/Arm Index ? 0.83 Rt DP JULISSA Resting ?0.83 Rt Digit 1/Arm Index ? >1.1 - ?? FINDINGS: Right Common Femoral Artery Analysis: The common femoral artery waveform is triphasic. Right Popliteal Artery Analysis: The popliteal waveform is triphasic. Right Posterior Tibial Artery Analysis: The posterior tibial waveform is triphasic. Right Anterior Tibial Artery Analysis: The anterior tibial waveform is biphasic. Right Digits: Normal right digit waveform, pressure unable to obtain. Left Common Femoral Artery Analysis: The common femoral artery waveform is triphasic. Left Popliteal Artery Analysis: The popliteal waveform is triphasic. Left Posterior Tibial Artery Analysis: The posterior tibial waveform is triphasic. Left Anterior Tibial Artery Analysis: The anterior tibial waveform is triphasic. Left Digits: Normal left digit pressure and waveform. ?? CONCLUSIONS: 1. The bilateral lower extremity arterial Doppler reveals multiphasic waveforms in all distributions above with normal ankle/brachial indices and digit pressures. No evidence of lower extremity arterial occlusive disease at rest bilaterally. ?? ATTESTATION: I have reviewed and interpreted the pertinent images and measurements of this study. I attest to the conclusions in the final report that is provided above. Electronically Signed By: Vaughn Hernandez MD 06/30/2024 1:08:11 PM COMMAND AND CONTROL SPECIALIST Procedure Note Vaughn Hernandez MD - 06/30/2024 Vascular & Vein Surgery [address] [place] [address]. [place] [address] Lower Extremity Arterial Doppler Report Patient Name: FEDERICO RODRIGUEZ TIMOTHY : 1955 Study Date: 06/29/2024 1:49:00 PM Gender: M Student Services Advisor: Mara Bah RVTuyet Location: [facility] Ref Provider: J CARLOS LAKE Quality: Adequate Order Provider: J CARLOS LAKE PROCEDURES: Arterial Report: Bilateral lower extremity arterial Doppler exam at rest. INDICATIONS: S/P BA/stent RCIA 03/09/2020. HISTORY: Hypertension. Hyperlipidemia. Diabetic. ROYER. Coronary artery disease S/Pstent/CABG. Afib. Former smoker. COMPARISONS: No previous exams. MEASUREMENTS: Right Value Left Value Rt Brachial Pressure 147 mmHg Lt Brachial Pressure 150 mmHg Rt Calf Pressure 137 mmHg Lt RECORD FILING CLERK Pressure 157 mmHg Rt RECORD FILING CLERK Pressure 141 mmHg Lt DPA Pressure 155 mmHg Rt DPA Pressure 124 mmHg Lt 1st Digit Pressure 125 mmHg Rt 1st Digit Pressure >160 mmHg Lt PT JULISSA Resting 1.05 Rt Calf Index 0.91 Lt DP JULISSA Resting 1.03 Rt PT JULISSA Resting 0.94 Lt Digit 1/Arm Index 0.83 Rt DP JULISSA Resting 0.83 Rt Digit 1/Arm Index >1.1 - FINDINGS: Right Common Femoral Artery Analysis: The common femoral artery waveform is triphasic. Right Popliteal Artery Analysis: The popliteal waveform is triphasic. Right Posterior Tibial Artery Analysis: The posterior tibial waveform is triphasic. Right Anterior Tibial Artery Analysis: The anterior tibial waveform is biphasic. Right Digits: Normal right digit waveform, pressure unable to obtain. Left Common Femoral Artery Analysis: The common femoral artery waveform is triphasic. Left Popliteal Artery Analysis: The popliteal waveform is triphasic. Left Posterior Tibial Artery Analysis: The posterior tibial waveform is triphasic. Left Anterior Tibial Artery Analysis: The anterior tibial waveform is triphasic. Left Digits: Normal left digit pressure and waveform. CONCLUSIONS: 1. The bilateral lower extremity arterial Doppler reveals multiphasicwaveforms in all distributions above with normal ankle/brachial indices and digitpressures. No evidence of lower extremity arterial occlusive disease at rest bilaterally. ATTESTATION: I have reviewed and interpreted the pertinent images and measurements ofthis study. I attest to the conclusions in the final report that is provided above. Electronically Signed By: Vaughn Hernandez MD 06/30/2024 1:08:11 PM COMMAND AND CONTROL SPECIALIST us J Carlos Lake MD IMG US PROCEDURES Final Result * Lipid panel (06/16/2024 11:29 AM COMMAND AND CONTROL SPECIALIST) SCRIBED Cholesterol, Total 102 <100 - <100 EXTERNAL LAB SCRIBED HDL 16 >40 - >40 EXTERNAL LAB SCRIBED LDL 47 <100 - <100 EXTERNAL LAB SCRIBED Triglycerides 195 <150 - <150 EXTERNAL LAB Blood us Historical Provider LAB BLOOD ORDERABLES Edit ed Result - Final EXTERNAL LAB * TRANSTHORACIC ECHO (TTE) COMPLETE W DOPPLER/CF WO CONTRAST (04/07/2024 10:06 AM COMMAND AND CONTROL SPECIALIST) Anatomical Region Laterality Modality Ultrasound 04/07/2024 9:43 AM COMMAND AND CONTROL SPECIALIST Narrative 04/07/2024 2:17 PM COMMAND AND CONTROL SPECIALIST [facility] [address], [place] [address] [address], [address], [place] [address] P:[phone] P:[phone] Echocardiographic Report Patient Name: FEDERICO RODRIGUEZ JESSICA : 1955 Study Date: 04/07/2024 9:43:55 AM Gender: M Tech: Location: [facility] Provider: J CARLOS LAKE ?Height(Cm): 168 BSA: 2.23 Weight(Kg): 106.1 Heart Rate: 65 BP: 122 / 62 Quality: Good Order Provider: J CARLOS LAKE PROCEDURES: Echocardiographic Report: Transthoracic echocardiogram with complete 2D, M-Mode, and color Doppler examination. With Strain Analysis. INDICATIONS: Z95.2 Presence of prosthetic heart valve. Measurements: 2D/M Mode ?Doppler Measurement ?Value ?Normal Range ?Measurement ?Value ?Normal Range LVIDd 2D ? 5.15 ? [ 4.20 - 5.80 ] cm ?ANALI Vmax ? 1.75 ? [ 2.00 - 4.00 ] cm2 LVIDs 2D ? 2.86 ? [ 2.50 - 4.00 ] cm ?AV Mean PG ? 17 ? mmHg LVPWd 2D ? 1.61 ? [ 0.60 - 1.00 ] cm ?AV Peak Viral ?2.84 ? [ 1.00 - 1.70 ] m/s IVSd 2D ?1.56 ? [ 0.60 - 1.00 ] cm ?AV Peak PG ? 32 ? mmHg LA Volume Index ?34 ? [ 16 - 34 ] cc/m2 ? AV VTI ? 53.87 ?cm LVOT Diam ?1.98 ?[ 1.70 - 2.10 ] cm LVOT Peak Viral ?1.31 ?[ 0.70 - 1.10 ] m/s LVOT VTI ? 28.38 ? cm MV E Peak Viral ?1.10 ?[ 0.60 - 1.30 ] m/s MV A Peak Viral ?1.24 ?[ 1.00 - 1.20 ] m/s MVA PHT ?3.05 ?[ 2.00 - 4.00 ] cm2 MV Decel Time ?398 ? [ 104 - 258 ] msec Lateral E` ? 0.07 ?[ 0.10 - 0.15 ] m/s E` ? 0.05 ?m/s E/E` ? 15 Measurement ?Value ?Normal Range ?Measurement ?Value ?Normal Range 2D/M Mode ?Doppler - FINDINGS: Interpretation Site: Exam was interpreted at [facility]. Left Ventricle: Severe concentric left ventricular hypertrophy. Left ventricle cavity is upper limits of normal in size. Normal global left ventricular systolic function. Impaired diastolic relaxation Grade I. Increased left heart filling pressures based on elevated E/E`. Ejection fraction is visually estimated at 60-65 %. Global Longitudinal Strain is -8 %. Right Ventricle: Normal right ventricular size. Normal right ventricular systolic function. Left Atrium: There is mild enlargement of left atrium. Right Atrium: The right atrium is normal in size. Atrial Septum: Normal atrial septum. Mitral Valve: Moderate mitral annular calcification. Aortic Valve: Status post TAVR using 26 mm Gonzalez August valve. Peak Velocity of 2.80 m/s. Mean gradient of 17.0 mmHg. Gradients normal for valve type and size. Tricuspid Valve: Normal appearance of the tricuspid valve. Right ventricular systolic pressure could not be estimated due to inadequate visualization of the tricuspid regurgitation jet. Pulmonic Valve: Pulmonic valve not well visualized. Pericardium: Normal pericardium with no significant pericardial effusion. Aorta: Normal aortic root. IVC: Normal size and normal respiratory collapse consistent with normal right atrial pressure (<5 mmHg). CONCLUSIONS: Severe concentric left ventricular hypertrophy. Left ventricle cavity is upper limits of normal in size. Normal global left ventricular systolic function. Impaired diastolic relaxation Grade I. Increased left heart filling pressures based on elevated E/E`. Ejection fraction about 60-65 %. Global Longitudinal Strain is -8 %. Normal right ventricular size. Normal right ventricular systolic function. Mild enlargement of left atrium. Mitral annular calcification. No significant MR. Status post TAVR using 26 mm Gonzalez August valve. Peak Velocity of 2.80 m/s. Mean gradient of 17.0 mmHg. DVI 0.56. Gradients in acceptable range for valve type and size. Right ventricular systolic pressure could not be estimated due to inadequate visualization of the tricuspid regurgitation jet. Electronically Signed By: J Carlos Lake MD, [facility] 2024-04-07 14:16:48 COMMAND AND CONTROL SPECIALIST Procedure Note J Carlos Lake MD - 04/07/2024 [facility] [address] [facility] [address], [place] [address] [address] [facility] [facility] [id number], [place] [address] P:[phone] P:[phone] Echocardiographic Report Patient Name: FEDERICO RODRIGUEZ TI : 1955 Study Date: 04/07/2024 9:43:55 AM Gender: M Tech: Location: [facility] Provider: J CARLOS LAKE Height(Cm): 168 BSA: 2.23 Weight(Kg): 106.1 Heart Rate: 65 BP: 122 / 62 Quality: Good Order Provider: J CARLOS LAKE PROCEDURES: Echocardiographic Report: Transthoracic echocardiogram with complete 2D, M-Mode, and color Dopplerexamination. With Strain Analysis. INDICATIONS: Z95.2 Presence of prosthetic heart valve. Measurements: 2D/M ModeDoppler Measurement Value Normal Range MeasurementValue Normal Range LVIDd 2D 5.15 [ 4.20 - 5.80 ] cm ANALI Vmax1.75 [ 2.00 - 4.00 ] cm2 LVIDs 2D 2.86 [ 2.50 - 4.00 ] cm AV Mean PG17 mmHg LVPWd 2D 1.61 [ 0.60 - 1.00 ] cm AV Peak Vel2.84 [ 1.00 - 1.70 ] m/s IVSd 2D 1.56 [ 0.60 - 1.00 ] cm AV Peak PG32 mmHg LA Volume Index 34 [ 16 - 34 ] cc/m2 AV VTI53.87 cm LVOT Diam 1.98 [ 1.70 - 2.10 ] cm LVOT Peak Viral 1.31 [ 0.70 - 1.10 ] m/s LVOT VTI 28.38 cm MV E Peak Viral 1.10 [ 0.60 - 1.30 ] m/s MV A Peak Viral 1.24 [ 1.00 - 1.20 ] m/s MVA PHT 3.05 [ 2.00 - 4.00 ] cm2 MV Decel Time 398 [ 104 - 258 ] msec Lateral E` 0.07 [ 0.10 - 0.15 ] m/s E` 0.05 m/s E/E` 15 Measurement Value Normal Range MeasurementValue Normal Range 2D/M ModeDoppler - FINDINGS: Interpretation Site: Exam was interpreted at [facility]. Left Ventricle: Severe concentric left ventricular hypertrophy. Left ventricle cavity isupper limits of normal in size. Normal global left ventricular systolic function. Impaireddiastolic relaxation Grade I. Increased left heart filling pressures based onelevated E/E`. Ejection fraction is visually estimated at 60-65 %. Global LongitudinalStrain is -8 %. Right Ventricle: Normal right ventricular size. Normal right ventricular systolicfunction. Left Atrium: There is mild enlargement of left atrium. Right Atrium: The right atrium is normal in size. Atrial Septum: Normal atrial septum. Mitral Valve: Moderate mitral annular calcification. Aortic Valve: Status post TAVR using 26 mm Gonzalez August valve. Peak Velocity of 2.80 m/s. Mean gradient of 17.0 mmHg. Gradients normalfor valve type and size. Tricuspid Valve: Normal appearance of the tricuspid valve. Right ventricular systolicpressure could not be estimated due to inadequate visualization of the tricuspidregurgitation jet. Pulmonic Valve: Pulmonic valve not well visualized. Pericardium: Normal pericardium with no significant pericardial effusion. Aorta: Normal aortic root. IVC: Normal size and normal respiratory collapse consistent with normal rightatrial pressure (<5 mmHg). CONCLUSIONS: Severe concentric left ventricular hypertrophy. Left ventricle cavity isupper limits of normal in size. Normal global left ventricular systolic function. Impaireddiastolic relaxation Grade I. Increased left heart filling pressures based onelevated E/E`. Ejection fraction about 60-65 %. Global Longitudinal Strain is -8 %. Normal right ventricular size. Normal right ventricular systolicfunction. Mild enlargement of left atrium. Mitral annular calcification. No significant MR. Status post TAVR using 26 mm Gonzalez August valve. Peak Velocity of 2.80m/s. Mean gradient of 17.0 mmHg. DVI 0.56. Gradients in acceptable range for valvetype and size. Right ventricular systolic pressure could not be estimated due toinadequate visualization of the tricuspid regurgitation jet. Electronically Signed By: J Carlos Lake MD, [facility] 2024-04-07 14:16:48 COMMAND AND CONTROL SPECIALIST us J Carlos Lake MD CV ECHO PROCEDURES Final Result * eGFR (09/26/2023 5:36 AM CDT) Pathologist [facility] eGFR >90 >=60 mL/min/1. 73 m2 Comment: Interpretive Data Reference Interval Normal ?>/= 90 mL/min/1.73m2 Mildly decreased* ? 60 - 89 mL/min/1.73m2 Mildly to moderately decreased ?45 - 59 mL/min/1.73m2 Moderately to severely decreased ??30 - 44 mL/min/1.73m2 Severely decreased ?15 - 29 mL/min/1.73m2 Kidney Failure ?< 15 ??mL/min/1.73m2 *Relative to young adult level Estimated glomerular filtration rate is determined by the 2020 CKD-EPI equation recommended by the National Kidney Foundation (A Unifying Approach to GFR Estimation: Recommendations of the NKF-ASK Task Force on Reassessing the Inclusion of Race in Diagnosing Kidney Disease, JASN 2020). The CKD-EPI equation should not be used for patients with unstable renal function and has not been validated in children and those over 70. Current interpretive data was last reviewed 2021. Blood 09/26/2023 5:36 AM CDT 09/26/2023 5:48 AM CDT us J Carlos Lake MD LAB BLOOD ORDERABLES Final Resul t [facility] [address] [address] Department [place] [address] * (ABNORMAL) Hemoglobin A1c (05/02/2020 9:36 PM COMMAND AND CONTROL SPECIALIST) Hgb A1C 6.8(H) 4.0 - 5.6 % [facility] Estimated Average Glucose 148 mg/dL [facility] Comment: The ADA recommends reporting an estimated Average Glucose (eAG) with all Hemoglobin A1c results using the equation derived from a study of 507 normal and diabetic adults. ??Minority populations were underrepresented and children were not included. ?? (Diabetes Care 31:9760-8374, 2008). ??The eAG is not equivalent to a fasting glucose. Blood specimen (specimen) 05/02/2020 9:36 PM COMMAND AND CONTROL SPECIALIST 05/02/2020 10:30 PM COMMAND AND CONTROL SPECIALIST us Alexx Bustamante MD LAB BLOOD ORDERABLES Final R esult [facility] Department [place] [address] from Last 3 Months or Most Recently Relevant to Health Maintenance Insurance MEDICARE [facility] CHOICE PLUS [facility] HMO/PPO Address: [address] [address] [place] [address] MEDICARE [facility] MED[facility]ARE [facility] Advance Directives For more information, please contact: [phone] * Full Code (Latest Code Status on File) Date Activated Date Inactivated Comments 05/01/2020 7:33 PM 05/03/2020 10:49 PM Care Teams Manager Client Support Relationship Specialty Start Date End Date Michele Harp MD PCP - General 06/04/13
--- OUTSIDE RECORDS SUMMARY | 2024-06-30 13:59 | XMS_ITS | Clinical Summary ---
Author Organization [facility] [address] Address [address] [place] [address] Care Team Providers Care Social Media Marketing Analyst Name Role Phone Michele Harp MD Primary Care Provider [phone] Allergies No known active allergies Medications blood [...] 05/01/2020 Assessment & Plan (05/03/2020 9:44 AM NOODLE CATALYST MAKER): - He presented with malaise, cough, shortness of breath. Symptoms began approximately on 2020. Vital signs on admission hypoxemia. A CXR obtained on admission showed bilateral infiltrates. - COVID-19 RNA PCR was sent on April 20, 2020 at [facility].. The patient's testing for COVID-19 is POSITIVE. [...] decide Assessment & Plan (05/02/2020 9:46 AM NOODLE CATALYST MAKER): - He presented with malaise, cough, shortness of breath. Symptoms began approximately on 2020. Vital signs on admission hypoxemia. A CXR obtained on admission showed bilateral infiltrates. - COVID-19 RNA PCR was sent on April 20, 2020 at [facility] in [facility].. The patient's testing for COVID-19 is [...] treatment. Assessment & Plan (05/01/2020 6:15 PM NOODLE CATALYST MAKER): - He presented with malaise, cough, shortness of breath. Symptoms began approximately on 2020. Vital signs on admission hypoxemia. A CXR obtained on admission showed bilateral infiltrates. - COVID-19 RNA PCR was sent on April 20, 2020 at [facility] in [facility].. The patient's testing for COVID-19 is [...] 2019 Assessment & Plan (05/03/2020 9:45 AM NOODLE CATALYST MAKER): This seems to be improved. I have asked the pulmonary rehab team to evaluate the patient to see if he might need oxygen at discharge - possible discharge later today or tomorrow Assessment & Plan (05/02/2020 9:46 AM NOODLE CATALYST MAKER): I will treat the patient with oxygen to maintain adequate oxygenation and treat his other issues as per below. Assessment & Plan (05/01/2020 6:15 PM NOODLE CATALYST MAKER): I will treat the patient with oxygen to maintain adequate oxygenation and treat his other issues as per below. DM2 (diabetes mellitus, type 2) 05/01/2020 Assessment & Plan (05/03/2020 9:43 AM NOODLE CATALYST MAKER): Doing well on current Lantus at night and NPH with dexamethasone - likely continue this at discharge Assessment & Plan (05/02/2020 9:46 AM NOODLE CATALYST MAKER): Lantus reduced to 40 units last night - will give NPH with dexamethasone today and follow sugars Assessment & Plan (05/01/2020 6:12 PM NOODLE CATALYST MAKER): As per history of present illness, patient [...] his metformin for now. Paroxysmal atrial flutter ([facility]) 04/05/2020 Assessment & Plan (05/03/2020 9:44 AM NOODLE CATALYST MAKER): Continue apixaban, BB Chronic anticoagulation 04/05/2020 Aortic stenosis 02/01/2020 Claudication in peripheral vascular disease ([facility]) 02/01/2020 PAD (peripheral artery disease) 01/04/2020 Overview (01/04/2020): Added automatically from request for surgery [id number] Assessment & Plan (05/03/2020 9:42 AM NOODLE CATALYST MAKER): I will continue patient's clopidogrel and statin therapy Assessment & Plan (05/02/2020 9:45 AM NOODLE CATALYST MAKER): I will continue patient's clopidogrel and statin therapy Assessment & Plan (05/01/2020 6:11 PM NOODLE CATALYST MAKER): I will continue patient's clopidogrel and statin therapy Systolic murmur 07/05/2019 Class 2 severe obesity due t o excess calories with serious comorbidity and body mass index (BMI) of 39.0 to 39.9 in adult 09/24/2017 Assessment & Plan (05/02/2020 9:46 AM NOODLE CATALYST MAKER): This raises patient's complication risk related to COVID-19 Assessment & Plan (05/01/2020 6:14 PM NOODLE CATALYST MAKER): This raises patient's complication risk related to COVID-19 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 ([facility]) 03/18/2017 Hx of CABG 03/18/2017 Hypertension associated with diabetes 03/18/2017 S/P coronary artery stent placement 03/18/2017 Obesity with body mass index 30 or greater 02/14 Overview (09/06/2016): Obesity (BMI 35.0-39.9 without comorbidity) Mixed diabetic hyperlipidemi a associated with type 2 diabetes mellitus ([facility]) 12/11/2015 Overview (09/06/2016): DM type 2 with diabetic dyslipidemia Assessment & Plan (05/03/2020 9:42 AM NOODLE CATALYST MAKER): Continue statin therapy Assessment & Plan (05/02/2020 9:45 AM NOODLE CATALYST MAKER): Continue statin therapy Assessment & Plan (05/01/2020 6:11 PM NOODLE CATALYST MAKER): Continue statin therapy Exercise-induced angina 03/01/2015 Overview (09/06/2016): Angina of effort ROYER on CPAP 03/01/2015 Overview (09/06/2016): ROYER on CPAP Assessment & Plan (05/03/2020 9:42 AM NOODLE CATALYST MAKER): - continue CPAP at night Assessment & Plan (05/02/2020 9:45 AM NOODLE CATALYST MAKER): While normally we avoid CPAP in the setting of COVID-19 infection in the hospital, patient tells me that he becomes quite short of breath and has significant apnea without it - continue CPAP at night Assessment & Plan (05/01/2020 6:11 PM NOODLE CATALYST MAKER): While normally we avoid CPAP in the [...] 12/07/2021 Assessment & Plan (05/03/2020 9:44 AM NOODLE CATALYST MAKER): I will continue patient's Plavix, statin, and beta-elan therapy. Assessment & Plan (05/02/2020 9:46 AM NOODLE CATALYST MAKER): I will continue patient's Plavix, statin, and beta-elan therapy. Assessment & Plan (05/01/2020 6:15 PM NOODLE CATALYST MAKER): I will continue patient's Plavix, statin, and beta-elan therapy. Encounters Date Type Department Care Team Description 06/29/2024 2:00 PM NOODLE CATALYST MAKER Ancillary Procedure [facility] Surgery at [address] [place] [address] PAD (peripheral artery disease) ([facility]) 06/16/2024 9:45 AM NOODLE CATALYST MAKER Office Visit [facility] [address] [place] [address] [address] [place] [address] J Carlos Lake MD S/P TAVR (transcatheter aortic valve replacement) (Primary Dx); Coronary artery disease involving telida coronary artery of telida heart without angina pectoris; S/P CABG x 5; Paroxysmal atrial flutter ([facility]) (HCC); Chronic anticoagulation; Hypertension associated with diabetes ([facility]); PAD (peripheral artery disease) ([facility]) 06/16/2024 Orders Only [facility] [address] [place] [address] [address] [place] [address] Ayanna Bush MD 04/07/2024 9:15 AM NOODLE CATALYST MAKER Ancillary Procedure [facility] [address] [facility] [address] [place] [address] S/P TAVR (transcatheter aortic valve replacement) from Last 3 Months Surgical History Surgery Date Site/Laterality Comments CORONARY STENT PLACEMENT 06/02/1996 - 06/01/1997 Coronary Stent Placement x7 CORONARY ARTERY BYPASS GRAFT x4, plus stent Medical History Medical History Date Comments Hypertension Hypertension Chronic coronary artery disease Coronary Artery Disease Hypercholesterolemia High choles terol Diabetes mellitus (HCC) Diabetes Type 2 diabetes mellitus (HCC) Chronic back pain Bulging lumbar disc GERD (gastroesophageal reflux disease) Sleep apnea cpap at night Atrial fibrillation (CMS/HCC) (HCC) Glaucoma Family History Medical History Relation Name Comments Other Father 2 Auto accident; Cause of : Auto accident Diabetes type II Mother 2 Diabetes Ty pe II; Relation Name Status Comments Father 1 (Age 26) Father 2 Mother 1 Alive Mother 2 Social History Tobacco Use Types Packs/Day Years [...] on file Legal Sex Male 2:06 AM NOODLE CATALYST MAKER Gender Identity Not on file Sexual Orientation Not on file Obstetrics History Last Filed Vital Signs Vital Sign Reading Time Taken Comments Blood Pressure 126/58 06/16/2024 9:47 AM NOODLE CATALYST MAKER Pulse 70 06/16/2024 9:47 AM NOODLE CATALYST MAKER Temperature 36.7 ??C (98.1 ??F) 09/26/2023 1:09 PM CD T Respiratory Rate 20 09/26/2023 1:09 PM CDT Oxygen Saturation 97% 06/16/2024 9:47 AM NOODLE CATALYST MAKER Inhaled Oxygen Concentration - - Weight 106.1 kg (234 lb) 06/16/2024 9:47 AM NOODLE CATALYST MAKER Height 167.6 cm (5' 6 ) 06/16/2024 9:47 AM NOODLE CATALYST MAKER Body Mass Index 37.77 06/16/2024 9:47 AM NOODLE CATALYST MAKER Plan of Treatment Health Maintenance Due Date Last Done Comments Albumin Creatinine Ratio, Urine 1955 Colon Cancer Screening-Colonoscopy 1955 Depression Screening 1955 Hepatitis C Screening 1955 Prostate Cancer Screening-PSA 1955 Dilated Eye Exam 1955 Foot Exam 1955 DTaP/Tdap/Td Vaccine (2 - Td or Tdap) 06/26/2019 06/26/2009 Abdominal Aortic Aneurysm (A AA) Screen 2020 Well Visit 65+ 2020 Hemoglobin A1C 10/31/2020 05/02/2020, 05/01/2020 Covid-19 Vaccine (7 - 2023-2 5 season) 2024 05/13/2023, 03/15/2022, 10/17/2021, Additional history exists Influenza Vaccine (#1) 2024 , 03/14/2022, 04/19/2021, Additional history exists Fall Risk Assessment 09/25/2024 09/26/2023, 03/07/20 21 eGFR 09/25/2024 09/26/2023, 08/31, 04/14/2023, Additional history exists Lipid Panel 06/16/2025 06/16/2024, 03/04, 03/20/2022, Additional history exists Pneumococcal vaccine 65+ Completed 03/14/2022 Zoster Vaccine Completed 11/05/2022, 09/02/2022 Medical Devices Implanted Type Area [employer] Device Identifier Shelf Expiration Date Model / Serial / Lot TerraLUX [id number] Synergy 3mm 20mm 144cm Radiopaque 1 Access Port Inflation Lumen - [id number] Implanted:Qty: 1 on 01/13/2020 by J Carlos Lake MD at [facility] Johanna [id number] / / TerraLUX [id number] Synergy 3.5mm 24mm 144cm Radiopaque 1 Access Port Inflation Lumen - [id number] Implanted:Qty: 1 on 01/13/2020 by J Carlos Lake MD at [facility] Johanna [id number] / / The Resumator Johanna [id number] Device Closure Angio-Seal Vip Bondek-Plus Polyglyd L70 Cm Od6 Fr Odsec.035 In Vascular - [id number] Implanted:Qty: 1 on 01/13/2020 by [facility] [id number] / / [place] Peripheral Vascular [id number] Lifestream 8mm 26mm 80cm Balloon Expandable Low Profile Cover - [id number] Implanted:Qty: 1 on 03/09/2020 by J Carlos Lake MD at [facility] Peripheral [facility]ascular [id number] / / Daig Johanna [id number] Device Closure Angio-Seal Vip Bondek-Plus Polyglyd L70 Cm Od6 Fr Odsec.035 In Vascular - [id number] Implanted:Qty: 1 on 03/09/2020 by [facility] [id number] / / Daig Johanna [id number] Device Closure Angio-Seal Vip Bondek-Plus Polyglyd L70 Cm Od6 Fr Odsec.035 In Vascular - [id number] Implanted:Qty: 1 on 03/09/2020 by J Carlos Lake MD at [facility] [id number] / / Medtronic Card Vasc Surgery 3.5 X 15mm Jasbir Colleton Rx Coronary Stent [id number] - [id number] Implanted:Qty: 1 on 2023 by J Carlos Lake MD at [facility] Vasc Surgery 01/21/2026 [id number] / / [id number] [employer] Inc Device Vascular Closure Femoral Artery Bioabsorbable Dual Method Vascade 6-7fr Collagen [id number] - [id number] Implanted:Qty: 1 on 2023 by J Carlos Lake MD at [facility] [employer] 12/24/2024 [id number] / / [id number] Olivas Vascular Device Clsr Perclose Prostyle Sut-Mediatd Closure-Repair Sys 70011-58 - [id number] Implanted:Qty: 1 on 09/25/2023 by J Carlos Lake MD at [facility] [employer] 06/01/2025 [id number] / / [id number] [employer] Vascular Device Clsr Perclose Prostyle Sut-Mediatd Closure-Repair Sys 08592-90 - [id number] Implanted:Qty: 1 on 09/25/2023 by J Carlos Lake MD at [facility] [employer] 07/02/2025 [id number] / / [id number] Cardi[employer] Inc Device Closure Vascade Od5 Fr Femoral Artery [id number] - [id number] Implanted:Qty: 1 on 09/25/2023 by J Carlos Lake MD at [facility] [employer] 04/28/2025 [id number] / / [id number] Gonzalez Lifesciences Valve Aortic Trnscath August 3 Ultra Resilia 26mm [id number] - [id number] - [id number] Implanted:Qty: 1 on 09/25/2023 by J Carlos Lake MD at [facility] [employer] 10/30/2025 [id number] / [id number] / Procedures Procedure Name Priority Date/Time Associated Diagnosis Comments US ARTERIAL DOPPLER LOWER EXTREMITY BILATERAL Schedule Routine, Read Routine (OP Routine) 06/29/2024 2:28 PM NOODLE CATALYST MAKER PAD (peripheral artery disease) (HCC) LIPID PANEL Routine 06/16/2024 11:29 AM NOODLE CATALYST MAKER TRANSTHORACIC ECHO (TTE) COMPLETE W DOPPLER/CF WO CONTRAST Routine 04/07/2024 10:06 AM NOODLE CATALYST MAKER S/P TAVR (transcatheter aortic valve replacement) EGFR Routine 09/26/2023 5:36 AM CDT HEMOGLOBIN A1C Routine 05/02/2020 9:36 PM NOODLE CATALYST MAKER from Last 3 Months or Most Recently Relevant to Health Maintenance Results * US Arterial Doppler Lower Extremity Bilateral (06/29/2024 2:28 PM NOODLE CATALYST MAKER) LV EF % CONS SCIMAGE Anatomical Region Laterality Modality Vascular Bilateral Ultrasound 06/29/2024 1:49 PM NOODLE CATALYST MAKER Narrative 06/30/2024 1:09 PM NOODLE CATALYST MAKER Vascular & Vein Surgery [address] [place] [address] Lower Extremity Arterial Doppler Report Patient Name: FEDERICO RODRIGUEZ TIMOTHY : 1955 Study Date: 06/29/2024 1:49:00 PM Gender: M Cupola Operator: Mara Bah RVT Location: V[facility]SE Ref Provider: [...] Calf Pressure ? 137 mmHg ? Lt LINE CLEANER Pressure ?157 mmHg Rt LINE CLEANER Pressure ?141 mmHg ? Lt DPA Pressure [...] By: Vaughn Hernandez MD 06/30/2024 1:08:11 PM NOODLE CATALYST MAKER Procedure Note Vaughn Hernandez MD - 06/30/2024 Vascular [facility] Vein Surgery [address] [facility] [place] [address] Lower Extremity Arterial Doppler Report Patient Name: FEDERICO RODRIGUEZ TIMOTHY : 1955 Study Date: 06/29/2024 1:49:00 PM Gender: M Cupola Operator: Mara Bah RVT Location: [facility]SE Ref Provider: [...] mmHg Rt Calf Pressure 137 mmHg Lt LINE CLEANER Pressure 157 mmHg Rt LINE CLEANER Pressure 141 mmHg Lt DPA Pressure 155 [...] By: Vaughn Hernandez MD 06/30/2024 1:08:11 PM NOODLE CATALYST MAKER J Carlos Lake MD IM US PROCEDURES Final Result * Lipid panel (06/16/2024 11:29 AM NOODLE CATALYST MAKER) SCRIBED Cholesterol, Total 102 <100 - <100 EXTERNAL LAB SCRIBED HDL 16 >40 - >40 EXTERNAL LAB SCRIBED LDL 47 <100 - <100 EXTERNAL LAB SCRIBED Triglycerides 195 <150 - <150 EXTERNAL LAB Blood Historical Provider LAB BLOOD ORDERABLES Edit ed Result - Final EXTERNAL LAB * TRANSTHORACIC ECHO (TTE) COMPLETE W DOPPLER/CF WO CONTRAST (04/07/2024 10:06 AM NOODLE CATALYST MAKER) Anatomical Region Laterality Modality Ultrasound 04/07/2024 9:43 AM NOODLE CATALYST MAKER Narrative 04/07/2024 2:[address] [facility] Medical [facility] Cardiology [address] [facility] [address], [place] [address] [address], [place] [address] P:[phone] P:[phone] Echocardiographic Report Patient Name: FEDERICO RODRIGUEZ TI : 1955 Study Date: 04/07/2024 9:43:55 AM Gender: M Tech: Location: [place] Ref Provider: J CARLOS LAKE ?Height(Cm): 168 BSA: [...] FINDINGS: Interpretation Site: Exam was interpreted at [facility]. Left Ventricle: Severe concentric left ventricular hypertrophy. [...] Electronically Signed By: J Carlos Lake MD, [facility] 2024-04-07 14:16:48 NOODLE CATALYST MAKER Procedure Note J Carlos Lake MD - 04/07/2024 [facility] Medical Group Cardiology [address], [place] [address] [address], [place] [address] P:[phone] P:[phone] Echocardiographic Report Patient Name: FEDERICO RODRIGUEZ TI : 1955 Study Date: 04/07/2024 9:43:55 AM Gender: M Tech: DANIA Location: [facility] Provider: J CARLOS LAKE Height(Cm): 168 BSA: [...] FINDINGS: Interpretation Site: Exam was interpreted at [facility]. Left Ventricle: Severe concentric left ventricular hypertrophy. [...] Electronically Signed By: J Carlos Lake MD, [facility] 2024-04-07 14:16:48 NOODLE CATALYST MAKER us J Carlos Lake MD CV ECHO PROCEDURES Final Result * eGFR (09/26/2023 5:36 AM CDT) eGFR >90 >=60 mL/min/1. 73 m2 Comment: [...] 5:36 AM CDT 09/26/2023 5:48 AM CDT J Carlos Lake MD LAB BLOOD ORDERABLES Final Resul t [facility] [address] Department [place] [address] * (ABNORMAL) Hemoglobin A1c (05/02/2020 9:36 PM NOODLE CATALYST MAKER) Hgb A1C 6.8(H) 4.0 - 5.6 % [facility] Estimated Average Glucose 148 mg/dL [facility] Comment: The ADA recommends reporting an estimated Average Glucose (eAG) with all Hemoglobin A1c results using the equation derived from a study of 507 normal and diabetic adults. ??Minority populations were underrepresented and children were not included. ?? (Diabetes Care 31:8198-9566, 2008). ??The eAG is not equivalent to a fasting glucose. Blood specimen (specimen) 05/02/2020 9:36 PM NOODLE CATALYST MAKER 05/02/2020 10:30 PM NOODLE CATALYST MAKER us Alexx Bustamante MD LAB BLOOD ORDERABLES Final R esult [facility] [address] [facility] Department [place] [address] from Last 3 Months or Most Recently Relevant to Health Maintenance Insurance MEDICARE [facility] CHOICE PLUS [facility] H[facility]/PPO Address: [address] [address] [place] [address] MEDICARE [facility] MEDICARE [employer] Advance Directives For more information, please contact: [phone] * Full Code (Latest Code Status on File) Date Activated Date Inactivated Comments 05/01/2020 7:33 PM 05/03/2020 10:49 PM Care Teams Social Media Marketing Analyst Relationship Specialty Start Date End Date Michele Harp MD PCP - General 06/04/13
--- OUTSIDE RECORDS SUMMARY | 2024-06-30 13:59 | XMS_ITS | Encounter Summary ---
Author Organization [facility] Address [address] [place] [address] Care Team Providers Care String Studies Director Name Role Phone Michele Harp MD Primary Care Provider [phone] Reason for Visit * Diagnostic Imaging (Routine) - Closed Specialty Diagnoses / Procedures Referred By Contac t Referred To Contact Diagnoses PAD (peripheral artery disease) (HCC) Procedures US Arterial Doppler Lower Extremity Bilateral Justine Lake MD [address] [address] Phone: tel: fax: [facility] Medical Group Vascular and Vein Surgery at [address] [address] Phone: tel: fax: Referral ID Status Reason Start Date Expiration Date Visits Re quested Visits Authorized [id number] Closed 06/16/2024 07/16/2025 1 1 Encounter Details Date Type Department Care Team (Latest Contact Info) Description 06/29/2024 2:00 PM CONTESTANT COORDINATOR Ancillary Procedure [facility] Medical [facility] Vascular and Vein Surgery at [address] [address] PAD (peripheral artery disease) (HCC) Social History Tobacco Use Types Packs/Day Years Used Date Smoking Tobacco: Former Cigarettes 0 12/31/1973 - 12/31/1982 Smokeless Tobacco: Never Comments:N/A Alcohol Use Standard Drinks/Week Comments Yes [...] on file Legal Sex Male 2:06 AM CONTESTANT COORDINATOR Gender Identity Not on file Sexual Orientation Not on file documented as of this encounter Plan of Treatment Not on file documented as of this encounter Procedures Procedure Name Priority Date/Time Associated Diagnosis Comments US ARTERIAL DOPPLER LOWER EXTREMITY BILATERAL Schedule Routine, Read Routine (OP Routine) 06/29/2024 2:28 PM CONTESTANT COORDINATOR PAD (peripheral artery disease) (HCC) documented in this encounter Results * US Arterial Doppler Lower Extremity Bilateral (06/29/2024 2:28 PM CONTESTANT COORDINATOR) LV EF % CONS SCIMAGE Anatomical Region Laterality Modality Vascular Bilateral Ultrasound 06/29/2024 1:49 PM CONTESTANT COORDINATOR Narrative 06/30/2024 1:09 PM CONTESTANT COORDINATOR Vascular & Vein Surgery [facility] [place] [address] Lower Extremity Arterial Doppler Report Patient Name: FEDERICO RODRIGUEZ TIMOTHY : 1955 Study Date: 06/29/2024 1:49:00 PM Gender: M Lineworker: Mara Bah RVT Location: [facility] Ref Provider: JUSTINE LAKE ?Quality: Adequate Order Provider: JUSTINE LAKE ?? PROCEDURES: Arterial Report: Bilateral lower [...] Calf Pressure ? 137 mmHg ? Lt RESTAURANT CREW MEMBER Pressure ?157 mmHg Rt RESTAURANT CREW MEMBER Pressure ?141 mmHg ? Lt DPA Pressure [...] By: Vaughn Hernandez MD 06/30/2024 1:08:11 PM CONTESTANT COORDINATOR Procedure Note Vaughn Hernandez MD - 06/30/2024 Vascular & Vein Surgery [address] [facility] [place] [address] Lower Extremity Arterial Doppler Report Patient Name: FEDERICO RODRIGUEZ TIMOTHY : 1955 Study Date: 06/29/2024 1:49:00 PM Gender: M Lineworker: Mara Bah RVT Location: [facility] Ref Provider: JUSTINE LAKE Quality: Adequate Order Provider: JUSTINE LAKE PROCEDURES: Arterial Report: Bilateral lower extremity arterial Doppler exam at rest. INDICATIONS: S/P BA/stent RCIA 03/09/2020. HISTORY: Hypertension. Hyperlipidemia. Diabetic. ROYER. Coronary artery disease S/Pstent/CABG. Afib. Former smoker. COMPARISONS: No previous exams. MEASUREMENTS: Right Value Left Value Rt Brachial Pressure 147 mmHg Lt Brachial Pressure 150 mmHg Rt Calf Pressure 137 mmHg Lt RESTAURANT CREW MEMBER Pressure 157 mmHg Rt RESTAURANT CREW MEMBER Pressure 141 mmHg Lt DPA Pressure 155 [...] By: Vaughn Hernandez MD 06/30/2024 1:08:11 PM CONTESTANT COORDINATOR us Justine Lake MD [facility] PROCEDURES Final Result documented in this encounter Visit Diagnoses Diagnosis PAD (peripheral artery disease) (HCC) Unspecified peripheral vascular disease documented in this encounter Care Teams String Studies Director Relationship Specialty Start Date End Date Michele Harp MD PCP - General 06/04/13 documented as of this encounter
--- OUTSIDE RECORDS SUMMARY | 2024-06-30 13:59 | XMS_ITS | Continuity of Care Document ---
Author Name [facility] Organization [facility] Care Team Providers Care Senior Computer Specialist Name Role Phone [facility] Unavailable Unavailable Problems Combined list of problems from Department of Defense and Veterans Affairs facilities. It does not include entries that were removed or entered in error. Problem Status Onset Date Problem Type Date of Resolution Comments Source Exposure to potentially hazardous substance Active Condition Jun 11, 2023 Entered By: ANILA CEVALLOS I Comment: Ganesh Galvan [facility] Diagnosis: ICD-10-CM Z77.29 Contact with and exposure to other hazardous substances Active Diagnosis [facility] Results Combined list of recent chemistry, hematology and other laboratory results from Department of Defense and Veterans Affairs, ranging from 15 months to all on record, depending upon the facility. Order Name Results Value Reference Range Date Interpretation Specimen Comments Source CBC LEUKOCYTES [#/VOLUME] IN BLOOD BY AUTOMATED COUNT 5.7 10*3/uL 3.6 - 11.2 06/11 Specimen Type: BLOOD No comment entered. Ordering Provider: ROSA CEVALLOS I Report Released Date/Time: Jun 11, 2023 10:10 AM Reporting Lab: [facility] [place] [address] Performing Lab: [facility] DIVISION CBC ERYTHROCYT ES [#/VOLUME] IN BLOOD BY AUTOMATED COUNT 4.72 10*6/uL 4.10 - 5.70 06/11 Specimen Type: BLOOD No comment entered. Ordering Provider: ROSA CEVALLOS I Report Released Date/Time: Jun 11, 2023 10:10 AM Reporting Lab: [facility] [place] [address] Performing Lab: [facility] DIVISION CBC HEMOGLOBIN [MASS/VOLU ME] IN BLOOD 13.1 g/dL 13.1 - 16.8 06/11 Specimen Type: BLOOD No comment entered. Ordering Provider: ROSA CEVALLOS I Report Released Date/Time: Jun 11, 2023 10:10 AM Reporting Lab: [facility] [place] [address] Performing Lab: [facility] [address] CBC HEMATOCRIT [VOLUME FRACTION] OF BLOOD 38.6 38.2 - 48.4 06/11 Specimen Type: BLOOD No comment entered. Ordering Provider: ROSA CEVALLOS I Report Released Date/Time: Jun 11, 2023 10:10 AM Reporting Lab: [facility] #1 [place] [address] Performing Lab: [facility] [address] CBC MCV [ENTITIC VOLUME] BY AUTOMATED COUNT 81.8 fL 80.0 - 100.0 06/11 Specimen Type: BLOOD No comment entered. Ordering Provider: ROSA CEVALLOS I Report Released Date/Time: Jun 11, 2023 10:10 AM Reporting Lab: [facility] [place] [address] Performing Lab: [facility] [address] CBC MCH [ENTITIC MASS] BY AUTOMATED COUNT 27.8 pg 27.0 - 34.0 06/11 Specimen Type: BLOOD No comment entered. Ordering Provider: ROSA CEVALLOS I Report Released Date/Time: Jun 11, 2023 10:10 AM Reporting Lab: [facility]1 [place] [address] Performing Lab: [facility] CBC MCHC [MASS/VOLU ME] BY AUTOMATED COUNT 33.9 g/dL 33.0 - 36.0 06/11 Specimen Type: BLOOD No comment entered. Ordering Provider: ROSA CEVALLOS I Report Released Date/Time: Jun 11, 2023 10:10 AM Reporting Lab: [facility] [place] [address] Performing Lab: [facility] CBC PLATELETS [#/VOLUME] IN BLOOD BY AUTOMATED COUNT 147 10*3/uL 150 - 400 06/11 L Specimen Type: BLOOD No comment entered. Ordering Provider: ROSA CEVALLOS I Report Released Date/Time: Jun 11, 2023 10:10 AM Reporting Lab: [facility] [place] [address] Performing Lab: [facility] CBC PLATELET MEAN VOLUME [ENTITIC VOLUME] IN BLOOD BY AUTOMATED COUNT 10.8 fL 7.5 - 11.2 06/11 Specimen Type: BLOOD No comment entered. Ordering Provider: ROSA CEVALLOS I Report Released Date/Time: Jun 11, 2023 10:10 AM Reporting Lab: [facility] [place] [address] Performing Lab: [facility] CBC ERYTHROCYT E DISTRIBUTI ON WIDTH [RATIO] BY AUTOMATED COUNT 14.1 11.8 - 15.1 06/11 Specimen Type: BLOOD No comment entered. Ordering Provider: ROSA CEVALLOS I Report Released Date/Time: Jun 11, 2023 10:10 AM Reporting Lab: [facility] [place] [address] Performing Lab: [facility] DIVISION CBC LYMPHOCYTE S/100 LEUKOCYTES IN BLOOD BY AUTOMATED COUNT 28 06/11 Specimen Type: BLOOD No comment entered. Ordering Provider: ROSA CEVALLOS I Report Released Date/Time: Jun 11, 2023 10:10 AM Reporting Lab: [facility] [place] [address] Performing Lab: [facility] DIVISION CBC MONOCYTES/ 100 LEUKOCYTES IN BLOOD BY AUTOMATED COUNT 7 06/11 Specimen Type: BLOOD No comment entered. Ordering Provider: ROSA CEVALLOS I Report Released Date/Time: Jun 11, 2023 10:10 AM Reporting Lab: [facility] [place] [address] Performing Lab: [facility] DIVISION CBC NEUTROPHIL S/100 LEUKOCYTES IN BLOOD BY AUTOMATED COUNT 62 06/11 Specimen Type: BLOOD No comment entered. Ordering Provider: ROSA CEVALLOS I Report Released Date/Time: Jun 11, 2023 10:10 AM Reporting Lab: [facility] [place] [address] Performing Lab: [facility] DIVISION CBC EOSINOPHIL S/100 LEUKOCYTES IN BLOOD BY AUTOMATED COUNT 3 06/11 Specimen Type: BLOOD No comment entered. Ordering Provider: ROSA CEVALLOS I Report Released Date/Time: Jun 11, 2023 10:10 AM Reporting Lab: [facility] [place] [address] Performing Lab: [facility] DIVISION CBC BASOPHILS/ 100 LEUKOCYTES IN BLOOD BY AUTOMATED COUNT 0 06/11 Specimen Type: BLOOD No comment entered. Ordering Provider: ROSA CEVALLOS I Report Released Date/Time: Jun 11, 2023 10:10 AM Reporting Lab: [facility] [place] [address] Performing Lab: [facility] DIVISION CBC LYMPHOCYTE S [#/VOLUME] IN BLOOD BY AUTOMATED COUNT 1.60 10*3/uL 0.77 - 4.50 06/11 Specimen Type: BLOOD No comment entered. Ordering Provider: ROSA CEVALLOS I Report Released Date/Time: Jun 11, 2023 10:10 AM Reporting Lab: [facility] [place] [address] Performing Lab: [facility] DIVISION CBC MONOCYTES [#/VOLUME] IN BLOOD BY AUTOMATED COUNT 0.38 10*3/uL 0.19 - 0.80 06/11 Specimen Type: BLOOD No comment entered. Ordering Provider: ROSA CEVALLOS I Report Released Date/Time: Jun 11, 2023 10:10 AM Reporting Lab: [facility] [place] [address] Performing Lab: [facility] DIVISION CBC NEUTROPHIL S [#/VOLUME] IN BLOOD BY AUTOMATED COUNT 3.54 10*3/uL 2.10 - 8.00 06/11 Specimen Type: BLOOD No comment entered. Ordering Provider: ROSA CEVALLOS I Report Released Date/Time: Jun 11, 2023 10:10 AM Reporting Lab: [facility] [place] [address] Performing Lab: [facility] DIVISION CBC EOSINOPHIL S [#/VOLUME] IN BLOOD BY AUTOMATED COUNT 0.16 10*3/uL 0.00 - 0.60 06/11 Specimen Type: BLOOD No comment entered. Ordering Provider: ROSA CEVALLOS I Report Released Date/Time: Jun 11, 2023 10:10 AM Reporting Lab: [facility] [place] [address] Performing Lab: [facility] DIVISION CBC BASOPHILS [#/VOLUME] IN BLOOD BY AUTOMATED COUNT 0.02 10*3/uL 0.00 - 0.20 06/11 Specimen Type: BLOOD No comment entered. Ordering Provider: ROSA CEVALLOS I Report Released Date/Time: Jun 11, 2023 10:10 AM Reporting Lab: [facility] [place] [address] Performing Lab: [facility] CBC PLATELETS RETICULATE D/100 PLATELETS IN BLOOD BY AUTOMATED COUNT 5.4 1.0 - 7.0 06/11 Specimen Type: BLOOD No comment entered. Ordering Provider: ROSA CEVALLOS I Report Released Date/Time: Jun 11, 2023 10:10 AM Reporting Lab: [facility] [place] [address] Performing Lab: [facility] DIVISION COMPREHE NSIVE METABOLI C PANEL CREATININE [MASS/VOLU ME] IN SERUM OR PLASMA 0.90 mg/dL 0.70 - 1.30 06/11 Specimen Type: PLASMA Comment: No hemolysis noted. Ordering Provider: ROSA CEVALLOS I Report Released Date/Time: Jun 11, 2023 10:10 AM Reporting Lab: [facility] [place] [address] Performing Lab: [facility] DIVISION COMPREHE NSIVE METABOLI C PANEL UREA NITROGEN [MASS/VOLU ME] IN SERUM OR PLASMA 12.6 mg/dL 9.0 - 25.0 06/11 Specimen Type: PLASMA Comment: No hemolysis noted. Ordering Provider: ROSA CEVALLOS I Report Released Date/Time: Jun 11, 2023 10:10 AM Reporting Lab: [facility] [place] [address] Performing Lab: [facility] DIVISION COMPREHE NSIVE METABOLI C PANEL GLUCOSE [MASS/VOLU ME] IN SERUM OR PLASMA 154 mg/dL 72 - 99 06/11 H Specimen Type: PLASMA Comment: No hemolysis noted. Ordering Provider: ROSA CEVALLOS I Report Released Date/Time: Jun 11, 2023 10:10 AM Reporting Lab: [facility] [place] [address] Performing Lab: [facility] DIVISION COMPREHE NSIVE METABOLI C PANEL SODIUM [MOLES/VOL UME] IN SERUM OR PLASMA 146 meq/L 136 - 145 06/11 H Specimen Type: PLASMA Comment: No hemolysis noted. Ordering Provider: ROSA CEVALLOS I Report Released Date/Time: Jun 11, 2023 10:10 AM Reporting Lab: [facility] [place] [address] Performing Lab: [facility] DIVISION COMPREHE NSIVE METABOLI C PANEL POTASSIUM [MOLES/VOL UME] IN SERUM OR PLASMA 3.9 meq/L 3.5 - 5.0 06/11 Specimen Type: PLASMA Comment: No hemolysis noted. Ordering Provider: ROSA CEVALLOS I Report Released Date/Time: Jun 11, 2023 10:10 AM Reporting Lab: [facility] [place] [address] Performing Lab: [facility] DIVISION COMPREHE NSIVE METABOLI C PANEL CHLORIDE [MOLES/VOL UME] IN SERUM OR PLASMA 109 meq/L 98 - 107 06/11 H Specimen Type: PLASMA Comment: No hemolysis noted. Ordering Provider: ROSA CEVALLOS I Report Released Date/Time: Jun 11, 2023 10:10 AM Reporting Lab: [facility] [place] [address] Performing Lab: [facility] DIVISION COMPREHE NSIVE METABOLI C PANEL CARBON DIOXIDE, TOTAL [MOLES/VOL UME] IN SERUM OR PLASMA 26 meq/L 22 - 31 06/11 Specimen Type: PLASMA Comment: No hemolysis noted. Ordering Provider: ROSA CEVALLOS I Report Released Date/Time: Jun 11, 2023 10:10 AM Reporting Lab: [facility] [place] [address] Performing Lab: [facility] DIVISION COMPREHE NSIVE METABOLI C PANEL CALCIUM [MASS/VOLU ME] IN SERUM OR PLASMA 8.8 mg/dL 8.4 - 10.4 06/11 Specimen Type: PLASMA Comment: No hemolysis noted. Ordering Provider: ROSA CEVALLOS I Report Released Date/Time: Jun 11, 2023 10:10 AM Reporting Lab: [facility] [place] [address] Performing Lab: [facility] DIVISION COMPREHE NSIVE METABOLI C PANEL PROTEIN [MASS/VOLU ME] IN SERUM OR PLASMA 6.6 g/dL 6.0 - 8.6 06/11 Specimen Type: PLASMA Comment: No hemolysis noted. Ordering Provider: ROSA CEVALLOS I Report Released Date/Time: Jun 11, 2023 10:10 AM Reporting Lab: [facility] [place] [address] Performing Lab: [facility] DIVISION COMPREHE NSIVE METABOLI C PANEL ALBUMIN [MASS/VOLU ME] IN SERUM OR PLASMA 4.0 g/dL 3.4 - 5.0 06/11 Specimen Type: PLASMA Comment: No hemolysis noted. Ordering Provider: ROSA CEVALLOS I Report Released Date/Time: Jun 11, 2023 10:10 AM Reporting Lab: [facility] [place] [address] Performing Lab: [facility] DIVISION COMPREHE NSIVE METABOLI C PANEL BILIRUBIN. TOTAL [MASS/VOLU ME] IN SERUM OR PLASMA 0.4 mg/dL 0.2 - 1.2 06/11 Specimen Type: PLASMA Comment: No hemolysis noted. Ordering Provider: ROSA CEVALLOS I Report Released Date/Time: Jun 11, 2023 10:10 AM Reporting Lab: [facility] [place] [address] Performing Lab: [facility] DIVISION COMPREHE NSIVE METABOLI C PANEL ALKALINE PHOSPHATAS E [ENZYMATIC ACTIVITY/V OLUME] IN SERUM OR PLASMA 42 U/L 40 - 150 06/11 Specimen Type: PLASMA Comment: No hemolysis noted. Ordering Provider: ROSA CEVALLOS I Report Released Date/Time: Jun 11, 2023 10:10 AM Reporting Lab: [facility] [place] [address] Performing Lab: [facility]1 [facility] [id number] DIVISION COMPREHE NSIVE METABOLI C PANEL ASPARTATE AMINOTRANS FERASE [ENZYMATIC ACTIVITY/V OLUME] IN SERUM OR PLASMA 24 U/L 5 - 34 06/11 Specimen Type: PLASMA Comment: No hemolysis noted. Ordering Provider: ROSA CEVALLOS I Report Released Date/Time: Jun 11, 2023 10:10 AM Reporting Lab: [facility] [place] [address] Performing Lab: [facility] DIVISION COMPREHE NSIVE METABOLI C PANEL ALANINE AMINOTRANS FERASE [ENZYMATIC ACTIVITY/V OLUME] IN SERUM OR PLASMA 30 U/L 8 - 40 06/11 Specimen Type: PLASMA Comment: No hemolysis noted. Ordering Provider: ROSA CEVALLOS I Report Released Date/Time: Jun 11, 2023 10:10 AM Reporting Lab: [facility] [place] [address] Performing Lab: [facility] DIVISION COMPREHE NSIVE METABOLI C PANEL GLOMERULAR FILTRATION RATE/1.73 SQ M.PREDICTE D [VOLUME RATE/AREA] IN SERUM, PLASMA OR BLOOD BY CREATININE -BASED FORMULA (CKD-EPI 2020) 93.03 60 06/11 Specimen Type: PLASMA Comment: No hemolysis noted. Ordering Provider: ROSA CEVALLOS I Report Released Date/Time: Jun 11, 2023 10:10 AM Reporting Lab: [facility] [place] [address] Performing Lab: [facility] DIVISION LIPID PANEL (STL) CHOLESTERO L [MASS/VOLU ME] IN SERUM OR PLASMA 120 mg/dL 0 - 200 06/11 Specimen Type: PLASMA Comment: No hemolysis noted. Ordering Provider: ROSA CEVALLOS I Report Released Date/Time: Jun 11, 2023 10:10 AM Reporting Lab: [facility] [place] [address] Performing Lab: [facility] LIPID PANEL (STL) TRIGLYCERI DE [MASS/VOLU ME] IN SERUM OR PLASMA 210 mg/dL 0 - 150 06/11 H Specimen Type: PLASMA Comment: No hemolysis noted. Ordering Provider: ROSA CEVALLOS I Report Released Date/Time: Jun 11, 2023 10:10 AM Reporting Lab: [facility] [place] [address] Performing Lab: [facility] LIPID PANEL (STL) CHOLESTERO L IN LDL [MASS/VOLU ME] IN SERUM OR PLASMA BY CALCULATIO N 55 mg/dL 06/11 Specimen Type: PLASMA Comment: No hemolysis noted. Ordering Provider: ROSA CEVALLOS I Report Released Date/Time: Jun 11, 2023 10:10 AM Reporting Lab: [facility] [place] [address] Performing Lab: [facility] LIPID PANEL (STL) CHOLESTERO L IN HDL [MASS/VOLU ME] IN SERUM OR PLASMA 23 mg/dL 40 06/11 L Specimen Type: PLASMA Comment: No hemolysis noted. Ordering Provider: ROSA CEVALLOS I Report Released Date/Time: Jun 11, 2023 10:10 AM Reporting Lab: [facility] [place] [address] Performing Lab: [facility] [address] DIVISION HGA1C HEMOGLOBIN A1C/HEMOGL OBIN.TOTAL IN BLOOD 7.6 4.0 - 6.0 06/11 H Specimen Type: BLOOD No comment entered. Ordering Provider: ROSA CEVALLOS I Report Released Date/Time: Jun 11, 2023 10:10 AM Reporting Lab: [facility] #1 [place] [address] Performing Lab: [facility] PROST. SPECIFIC AG.(PB-S TL) PROSTATE SPECIFIC AG [MASS/VOLU ME] IN SERUM OR PLASMA 0.648 ng/mL 0.000 - 4.000 06/11 Specimen Type: SERUM Comment: The listed sex of this patient may not be a typical indication for this test. Therefore, reference ranges or interpretiv e criteria listed may not be valid. Clinical correlation suggested. Ordering Provider: ROSA CEVALLOS I Report Released Date/Time: Jun 11, 2023 10:10 AM Reporting Lab: [facility] [place] [address] Performing Lab: [facility] [address] HEP C Ab HCV Ab (STL) HEPATITIS C VIRUS AB [PRESENCE] IN SERUM Nonreact hector 06/11 Specimen Type: SERUM No comment entered. Ordering Provider: ROSA CEVALLOS I Report Released Date/Time: Jun 11, 2023 10:10 AM Reporting Lab: [facility] [address] [facility] [id number] Performing Lab: [place] [id number] [facility] [id number] [facility] Encounters Combined list of: 1) Encounters from Department of [facility] Affairs facilities going back up to thelast 18 months. 2) Encounters from the Department of Defense facilities going back up to 280 months. Location Location Details Encounter Type Encounter Number Reason For Visit Attending Provider ADM Date DC Date Status Disposition Source [facility] O/P EST HI 40 MIN [id number] Diagnos is: ICD-10- CM Z77.29 Contact with and exposur e to other hazardo us substan yaneth<br/ > ABIMAEL CEVALLOS I 06/11 [facility] Outpatient Encounter [id number] 08/12 [facility] N
--- NOTE | 2024-06-30 14:15 | NEURO_ITS ---
Impression: # Complains of numbness of hands. ? # Bilateral Carpal Tunnel Syndrome. # No ulnar neuropathy. ? # Normal needle/EMG exam. Nerve Conduction Studies Anti Sensory Summary Table ?Stim Site NR Peak (ms) P-T Amp (?V) Site1 Site2 Delta-P (ms) Dist (cm) Viral (m/s) Left Median Anti Sensory (2-3nd Digit) Wrist ? 3.6 11.4 Wrist 2-3nd Digit 3.6 14.0 39 Wrist ? 3.8 28.3 Wrist 2-3nd Digit 3.6 14.0 39 Right Median Anti Sensory (2-3nd Digit) Wrist ? 5.2 10.6 Wrist 2-3nd Digit 5.2 14.0 27 Wrist ? 5.4 15.1 Wrist 2-3nd Digit 5.2 14.0 27 Left Radial Anti Sensory (Base 1st Digit) Wrist ? 2.2 71.5 Wrist Base 1st Digit 2.2 0.0 Right Radial Anti Sensory (Base 1st Digit) Wrist ? 3.0 51.1 Wrist Base 1st Digit 3.0 0.0 Left Ulnar Anti Sensory (5th Digit) Wrist ? 2.4 64.2 Wrist 5th Digit 2.4 14.0 58 Right Ulnar Anti Sensory (5th Digit) Wrist ? 2.6 57.2 Wrist 5th Digit 2.6 14.0 54 Motor Summary Table ?Stim Site NR Onset (ms) O-P Amp (mV) Site1 Site2 Delta-0 (ms) Dist (cm) Viral (m/s) Left Median Motor (Abd Poll Brev) Wrist ? 3.7 3.3 Elbow Wrist 4.7 26.0 55 Elbow ? 8.4 3.5 Right Median Motor (Abd Poll Brev) Wrist ? 5.1 4.2 Elbow Wrist 4.7 26.0 55 Elbow ? 9.8 3.2 Left Ulnar Motor (Abd Dig Minimi) Wrist ? 2.7 7.6 A Elbow Wrist 5.1 29.0 57 A Elbow ? 7.8 6.2 Right Ulnar Motor (Abd Dig Minimi) Wrist ? 2.5 4.3 A Elbow Wrist 5.2 29.0 56 A Elbow ? 7.7 3.1 F Wave Studies ?NR F-Lat (ms) L-R F-Lat (ms) Left Median (Mrkrs) (Abd Poll Brev) ? 29.77 0.39 Right Median (Mrkrs) (Abd Poll Brev) ? 29.38 0.39 Left Ulnar (Mrkrs) (Abd Dig Min) ? 29.23 0.22 Right Ulnar (Mrkrs) (Abd Dig Min) ? 29.01 0.22 EMG ?Side Muscle Nerve Root Ins Act Fibs Amp Dur Recrt Comment Right 1stDorInt Ulnar C8-T1 Nml Nml Nml Nml Nml Right Ext Indicis Radial (Post Int) C7-8 Nml Nml Nml Nml Nml Right Ext Digitorum Radial (Post Int) C7-8 Nml Nml Nml Nml Nml Right BrachioRad Radial C5-6 Nml Nml Nml Nml Nml Right PronatorTeres Median C6-7 Nml Nml Nml Nml Nml Right Abd Poll Brev Median C8-T1 Nml Nml Nml Nml Nml Right ABD Dig Min Ulnar C8-T1 Nml Nml Nml Nml Nml Left 1stDorInt Ulnar C8-T1 Nml Nml Nml Nml Nml Left Ext Indicis Radial (Post Int) C7-8 Nml Nml Nml Nml Nml Left Ext Digitorum Radial (Post Int) C7-8 Nml Nml Nml Nml Nml Left BrachioRad Radial C5-6 Nml Nml Nml Nml Nml Left PronatorTeres Median C6-7 Nml Nml Nml Nml Nml Left Abd Poll Brev Median C8-T1 Nml Nml Nml Nml Nml Left ABD Dig Min Ulnar C8-T1 Nml Nml Nml Nml Nml MTDD
== END 2024-06-30 12:58 | disposition home or self-care (01) ==
LOC: ANHNEURO 12:58
PROVIDERS: PCP Family Medicine; Visit Provider Family Medicine
DX: G56.03 Carpal tunnel syndrome, bilateral upper limbs (principal)
CPT/HCPCS: 95886; 95911

== ENCOUNTER 2024-09-23 02:48 | Day surgery (SDC) | payer MEDICARE, SELFPAY ==
[2024-09-15 13:36] VITALS: BMI 37.9
--- NOTE | 2024-09-16 10:35 | PC.NURSE ---
Spoke with patient regarding medication Plavix & Eliquis. Patient verbalizes understanding that the last dose is to be taken on 09/18/24 for Plavix & 09/20/24 for Eliquis and the Endoscopist will instruct them when to restart after the procedure.
--- OUTSIDE RECORDS SUMMARY | 2024-09-23 02:52 | XMS_ITS | Referral Summary ---
Author Organization [facility] [address] [place] [address] [address] [place] [address] Care Team Providers Care Unix Manager Name Role Phone Michele aHrp MD Primary Care Provider [phone] Encounters Date Type Department Care Team Description 07/22/2024 Telephone [facility] Cardiology [address] [place] [address] J Carlos Lake MD 06/29/2024 2:00 PM [facility] Ancillary Procedure [facility] Vascular and Vein Surgery at [address] [place] [address] PAD (peripheral artery disease) from Last 3 Months Allergies No known [...] (Eliquis) 5 mg tabletIndication s:Paroxysmal atrial flutter (HCC) TAKE 1 TABLET BY MOUTH TWICE [...] 05/01/2020 Assessment & Plan (05/03/2020 9:44 AM [facility]): - He presented with malaise, cough, shortness of breath. Symptoms began approximately on 2020. Vital signs on admission hypoxemia. A CXR obtained on admission showed bilateral infiltrates. - COVID-19 RNA PCR was sent on April 20, 2020 at [facility].. The patient's testing for COVID-19 is [...] decide Assessment & Plan (05/02/2020 9:46 AM [facility] CLOSED [facility]OL[facility]): - He presented with malaise, cough, shortness of breath. Symptoms began approximately on 2020. Vital signs on admission hypoxemia. A CXR obtained on admission showed bilateral infiltrates. - COVID-19 RNA PCR was sent on April 20, 2020 at [facility].. The patient's testing for COVID-19 is [...] treatment. Assessment & Plan (05/01/2020 6:15 PM [facility] CLOSED [facility]OL[facility]): - He presented with malaise, cough, shortness of breath. Symptoms began approximately on 2020. Vital signs on admission hypoxemia. A CXR obtained on admission showed bilateral infiltrates. - COVID-19 RNA PCR was sent on April 20, 2020 at [facility].. The patient's testing for COVID-19 [...] 2019 Assessment & Plan (05/03/2020 9:45 AM [facility] CLOSED [facility]OL[facility]): This seems to be improved. I have asked the pulmonary rehab team to evaluate the patient to see if he might need oxygen at discharge - possible discharge later today or tomorrow Assessment & Plan (05/02/2020 9:46 AM [facility] CLOSED [facility]): I will treat the patient with oxygen to maintain adequate oxygenation and treat his other issues as per below. Assessment & Plan (05/01/2020 6:15 PM [facility] CLOSED [facility]OL[facility]): I will treat the patient with oxygen to maintain adequate oxygenation and treat his other issues as per below. DM2 (diabetes mellitus, type 2) 05/01/2020 Assessment & Plan (05/03/2020 9:43 AM [facility] CLOSED [facility]OL[facility]): Doing well on current Lantus at night and NPH with dexamethasone - likely continue this at discharge Assessment & Plan (05/02/2020 9:46 AM [facility] CLOSED [facility]OL[facility]): Lantus reduced to 40 units last night - will give NPH with dexamethasone today and follow sugars Assessment & Plan (05/01/2020 6:12 PM [facility] CLOSED MOL[facility]): As per history of present illness, patient [...] his metformin for now. Paroxysmal atrial flutter 04/05/2020 Assessment & Plan (05/03/2020 9:44 AM MOLDER CLOSED MOLDS): Continue apixaban, BB Chronic anticoagulation 04/05/2020 Aortic stenosis 02/01/2020 Claudication in peripheral vascular disease ([facility] /HCC) 02/01/2020 PAD (peripheral artery disease) 01/04/2020 Overview (01/04/2020): Added automatically from request for surgery [id number] Assessment & Plan (05/03/2020 9:42 AM [facility]OSED [facility]): I will continue patient's clopidogrel and statin therapy Assessment & Plan (05/02/2020 9:45 AM [facility] CLOSED [facility]OL[facility]): I will continue patient's clopidogrel and statin therapy Assessment & Plan (05/01/2020 6:11 PM [facility] CLOSED MOL[facility]): I will continue patient's clopidogrel and statin therapy Systolic murmur 07/05/2019 Class 2 severe obesity due t o excess calories with serious comorbidity and body mass index (BMI) of 39.0 to 39.9 in adult 09/24/2017 Assessment & Plan (05/02/2020 9:46 AM [facility] CLOSED [facility]OL[facility]): This raises patient's complication risk related to COVID-19 Assessment & Plan (05/01/2020 6:14 PM MOLDER CLOSED MOLDS): This raises patient's complication risk related to COVID-19 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 ([facility]) 03/18/2017 Hx of CABG 03/18/2017 Hypertension associated with diabetes 03/18/2017 S/P coronary artery stent placement 03/18/2017 Obesity with body mass index 30 or greater 02/14 Overview (09/06/2016): Obesity (BMI 35.0-39.9 without comorbidity) Mixed diabetic hyperlipidemi a associated with type 2 diabetes mellitus ([facility]) 12/11/2015 Overview (09/06/2016): DM type 2 with diabetic dyslipidemia Assessment & Plan (05/03/2020 9:42 AM [facility] CLOSED [facility]OL[facility]): Continue statin therapy Assessment & Plan (05/02/2020 9:45 AM MOL[facility] CLOSED MOL[facility]): Continue statin therapy Assessment & Plan (05/01/2020 6:11 PM [facility]OLDER CLOSED MOLDS): Continue statin therapy Exercise-induced angina 03/01/2015 Overview (09/06/2016): Angina of effort ROYER on CPAP 03/01/2015 Overview (09/06/2016): ROYER on CPAP Assessment & Plan (05/03/2020 9:42 AM [facility] CLOSED [facility]): - continue CPAP at night Assessment & Plan (05/02/2020 9:45 AM [facility] CLOSED MOL[facility]): While normally we avoid CPAP in the setting of COVID-19 infection in the hospital, patient tells me that he becomes quite short of breath and has significant apnea without it - continue CPAP at night Assessment & Plan (05/01/2020 6:11 PM MOLDER CLOSED MOLDS): While normally we avoid CPAP in the [...] 12/07/2021 Assessment & Plan (05/03/2020 9:44 AM MOL[facility] CLOSED MOL[facility]): I will continue patient's Plavix, statin, and beta-elan therapy. Assessment & Plan (05/02/2020 9:46 AM MOLDER CLOSED MOLDS): I will continue patient's Plavix, statin, and beta-elan therapy. Assessment & Plan (05/01/2020 6:15 PM MOLDER CLOSED MOLDS): I will continue patient's Plavix, statin, and [...] on file Legal Sex Male 2:06 AM [facility] Gender Identity Not on file Sexual Orientation Not on file Last Filed Vital Signs Vital Sign Reading Time Taken Comments Blood Pressure 126/58 06/16/2024 9:47 AM [facility] Pulse 70 06/16/2024 9:47 AM [facility] Temperature 36.7 C (98.1 F) 09/26/2023 1:09 PM CDT Respiratory Rate 20 09/26/2023 1:09 PM CDT Oxygen Saturation 97% 06/16/2024 9:47 AM [facility] Inhaled Oxygen Concentration - - Weight 106.1 kg (234 lb) 06/16/2024 9:47 AM [facility] Height 167.6 cm (5' 6 ) 06/16/2024 9:47 AM [facility] Body Mass Index 37.77 06/16/2024 9:47 AM [facility]OS[facility] Plan of Treatment Not on file Medical Devices Implanted Type Area Concrete Mixer Truck Driver Device Identifier Shelf Expiration Date Model / Serial / Lot [employer] [id number] Synergy 3mm 20mm 144cm Radiopaque 1 Access Port Inflation Lumen - [id number] Implanted:Qty: 1 on 01/13/2020 by J Carlos Lake MD at [facility] [employer] [id number] / / [employer] [id number] Synergy 3.5mm 24mm 144cm Radiopaque 1 Access Port Inflation Lumen - [id number] Implanted:Qty: 1 on 01/13/2020 by J Carlos Lake MD at [facility] [employer] [id number] / / [id number] [id number] Device Closure Angio-Seal Vip Bondek-Plus Polyglyd L70 Cm Od6 Fr Odsec.035 In Vascular - [id number] Implanted:Qty: 1 on 01/13/2020 [facility] [id number] / / Bard Peripheral Vascular [id number] Lifestream 8mm 26mm 80cm Balloon Expandable Low Profile Cover - [id number] Implanted:Qty: 1 on 03/09/2020 by J Carlos Lake MD at [facility] Peripheral Vascular [id number] / / [id number] [id number] Device Closure Angio-Seal Vip Bondek-Plus Polyglyd L70 Cm Od6 Fr Odsec.035 In Vascular - [id number] Implanted:Qty: 1 on 03/09/2020 [facility] [employer]anna[employer] [id number] / / [employer] Materials Technology Internationalg Johanna [id number] Device Closure Angio-Seal Vip Bondek-Plus Polyglyd L70 Cm Od6 Fr Odsec.035 In Vascular - [id number] Implanted:Qty: 1 on 03/09/2020 by J Carlos Lake MD at [facility] [id number] / / Medtronic Card Vasc Surgery 3.5 X 15mm Jasbir [place] Rx Coronary Stent [id number] - [id number] Implanted:Qty: 1 on 2023 by J Carlos Lake MD at [facility] Vasc Surgery 01/21/2026 [id number] / / [id number] [facility] Device Vascular Closure Femoral Artery Bioabsorbable Dual Method Vascade 6-7fr Collagen 197-102m-57m - [id number] Implanted:Qty: 1 on 2023 by J Carlos Lake MD at [facility] 12/24/2024 [id number] / / [id number] Olivas Vascular Device Clsr Perclose Prostyle Sut-Mediatd Closure-Repair Sys 98387-02 - [id number] Implanted:Qty: 1 on 09/25/2023 by J Carlos Lake MD at [facility] Vascular 06/01/2025 [id number] / / [id number] Olivas Vascular Device Clsr Perclose Prostyle Sut-Mediatd Closure-Repair Sys 52366-86 - [id number] Implanted:Qty: 1 on 09/25/2023 by J Carlos Lake MD at [facility] Vascular 07/02/2025 [id number] / / [id number] Carditn Medical [facility] Device Closure Vascade Od5 Fr Femoral Artery [id number] - [id number] Implanted:Qty: 1 on 09/25/2023 by J Carlos Lake MD at [facility] 04/28/2025 [id number] / / [id number] Gonzalez Lifesciences Valve Aortic Trnscath August 3 Ultra Resilia 26mm [id number] - [id number] - [id number] Implanted:Qty: 1 on 09/25/2023 by J Carlos Lake MD at [facility] [employer] 10/30/2025 [id number] / [id number] / Procedures Procedure Name Priority Date/Time Associated Diagnosis Comments US ARTERIAL DOPPLER LOWER EXTREMITY BILATERAL Schedule Routine, Read Routine (OP Routine) 06/29/2024 2:28 PM [facility] PAD (peripheral artery disease) LIPID PANEL Routine 06/16/2024 11:29 AM [facility] EGFR Routine 09/26/2023 5:36 AM CDT HEMOGLOBIN A1C Routine 05/02/2020 9:36 PM [facility] from Last 3 Months or Most Recently Relevant to Health Maintenance Results * US Arterial Doppler Lower Extremity Bilateral (06/29/2024 2:28 PM [facility] CLOS[facility]) LV EF % CONS SCIMAGE Anatomical Region Laterality Modality Vascular Bilateral Ultrasound 06/29/2024 1:49 PM [facility] Narrative 06/30/2024 1:09 PM [facility] Vascular & Vein Surgery [address] [place] [address] Lower Extremity Arterial Doppler Report Patient Name: FEDERICO RODRIGUEZ TIMOTHY : 1955 Study Date: 06/29/2024 1:49:00 PM Gender: M Belt Measurer: Mara Bah Tuyet Location: [facility] Ref Provider: J CARLOS LAKE Quality: Adequate Order Provider: J CARLOS LAKE PROCEDURES: Arterial Report: Bilateral lower extremity arterial Doppler exam at rest. INDICATIONS: S/P BA/stent RCIA 03/09/2020. HISTORY: Hypertension. Hyperlipidemia. Diabetic. ROYER. Coronary artery disease S/P stent/CABG. Afib. Former smoker. COMPARISONS: No previous exams. MEASUREMENTS: Right Value Left Value Rt Brachial Pressure 147 mmHg Lt Brachial Pressure 150 mmHg Rt Calf Pressure 137 mmHg Lt HISTOTECHNOLOGIST Pressure 157 mmHg Rt HISTOTECHNOLOGIST Pressure 141 mmHg Lt DPA Pressure 155 [...] By: Vaughn Hernandez MD 06/30/2024 1:08:11 PM [facility] Procedure Note Vaughn Hernandez MD - 06/30/2024 Vascular & Vein Surgery [address] [place] [address] Lower Extremity Arterial Doppler Report Patient Name: FEDERICO RODRIGUEZ TIMOTHY : 1955 Study Date: 06/29/2024 1:49:00 PM Gender: M Belt Measurer: Mara Bah RVT Location: [facility] Ref Provider: [...] mmHg Rt Calf Pressure 137 mmHg Lt HISTOTECHNOLOGIST Pressure 157 mmHg Rt HISTOTECHNOLOGIST Pressure 141 mmHg Lt DPA Pressure 155 [...] By: Vaughn Hernandez MD 06/30/2024 1:08:11 PM [facility] J Carlos Lake MD IM US PROCEDURES Final Result * Lipid panel (06/16/2024 11:29 AM [facility] CLOSED [facility]) SCRIBED Cholesterol, Total 102 <100 - <100 EXTERNAL LAB SCRIBED HDL 16 >40 - >40 EXTERNAL LAB SCRIBED LDL 47 <100 - <100 EXTERNAL LAB SCRIBED Triglycerides 195 <150 - <150 EXTERNAL LAB Blood Historical Provider LAB BLOOD ORDERABLES Edit ed Result - Final EXTERNAL LAB * eGFR (09/26/2023 5:36 AM CDT) eGFR >90 >=60 mL/min/1. 73 m2 Comment: Interpretive Data Reference Interval Normal >/= 90 mL/min/1.73m2 Mildly decreased* 60 - 89 mL/min/1.73m2 Mildly to moderately decreased 45 - 59 mL/min/1.73m2 Moderately to severely decreased 30 - 44 mL/min/1.73m2 Severely decreased 15 - 29 mL/min/1.73m2 Kidney Failure < 15 mL/min/1.73m2 *Relative to young adult level Estimated glomerular [...] LAB BLOOD ORDERABLES Final Resul t M[facility] [id number] Department [place] [address] * (ABNORMAL) Hemoglobin A1c (05/02/2020 9:36 PM [facility] CLOSED [facility]OL[facility]) Hgb A1C 6.8(H) 4.0 - 5.6 % [facility] Estimated Average Glucose 148 mg/dL [facility] Comment: The ADA recommends reporting an estimated Average Glucose (eAG) with all Hemoglobin A1c results using the equation derived from a study of 507 normal and diabetic adults. Minority populations were underrepresented and children were not included. (Diabetes Care 31:9869-0234, 2008). The eAG is not equivalent to a fasting glucose. Blood specimen (specimen) 05/02/2020 9:36 PM [facility] 05/02/2020 10:30 PM [facility] us Alexx Bustamante MD LAB BLOOD ORDERABLES Final R esult [facility] Department [place] [address] from Last 3 Months or Most Recently Relevant to Health Maintenance Insurance MEDICARE [facility] CHOICE PLUS MEDICARE [facility] MEDICARE [employer] Advance Directives For more information, please contact: [phone] * Full Code (Latest Code Status on File) Date Activated Date Inactivated Comments 05/01/2020 7:33 PM 05/03/2020 10:49 PM Care Teams Unix Manager Relationship Specialty Start Date End Date Michele Harp MD PCP - General 06/04/13
--- OUTSIDE RECORDS SUMMARY | 2024-09-23 02:52 | XMS_ITS | Clinical Summary ---
Author Organization [facility] [address] Address [address] [place] [address] Care Team Providers Care Gum Worker Name Role Phone Michele Harp MD Primary Care Provider [phone] Allergies No known active allergies Medications blood [...] 05/01/2020 Assessment & Plan (05/03/2020 9:44 AM SENIOR BOOKKEEPER): - He presented with malaise, cough, shortness of breath. Symptoms began approximately on 2020. Vital signs on admission hypoxemia. A CXR obtained on admission showed bilateral infiltrates. - COVID-19 RNA PCR was sent on April 20, 2020 at [facility].. The patient's testing for COVID-19 is [...] decide Assessment & Plan (05/02/2020 9:46 AM SENIOR BOOKKEEPER): - He presented with malaise, cough, shortness of breath. Symptoms began approximately on 2020. Vital signs on admission hypoxemia. A CXR obtained on admission showed bilateral infiltrates. - COVID-19 RNA PCR was sent on April 20, 2020 at [facility] in [facility].. The patient's testing for COVID-19 [...] treatment. Assessment & Plan (05/01/2020 6:15 PM SENIOR BOOKKEEPER): - He presented with malaise, cough, shortness of breath. Symptoms began approximately on 2020. Vital signs on admission hypoxemia. A CXR obtained on admission showed bilateral infiltrates. - COVID-19 RNA PCR was sent on April 20, 2020 at [facility] in [facility].. The patient's testing for COVID-19 [...] 2019 Assessment & Plan (05/03/2020 9:45 AM SENIOR BOOKKEEPER): This seems to be improved. I have asked the pulmonary rehab team to evaluate the patient to see if he might need oxygen at discharge - possible discharge later today or tomorrow Assessment & Plan (05/02/2020 9:46 AM SENIOR BOOKKEEPER): I will treat the patient with oxygen to maintain adequate oxygenation and treat his other issues as per below. Assessment & Plan (05/01/2020 6:15 PM SENIOR BOOKKEEPER): I will treat the patient with oxygen to maintain adequate oxygenation and treat his other issues as per below. DM2 (diabetes mellitus, type 2) 05/01/2020 Assessment & Plan (05/03/2020 9:43 AM SENIOR BOOKKEEPER): Doing well on current Lantus at night and NPH with dexamethasone - likely continue this at discharge Assessment & Plan (05/02/2020 9:46 AM SENIOR BOOKKEEPER): Lantus reduced to 40 units last night - will give NPH with dexamethasone today and follow sugars Assessment & Plan (05/01/2020 6:12 PM SENIOR BOOKKEEPER): As per history of present illness, patient [...] 04/05/2020 Assessment & Plan (05/03/2020 9:44 AM SENIOR BOOKKEEPER): Continue apixaban, BB Chronic anticoagulation 04/05/2020 Aortic stenosis 02/01/2020 Claudication in peripheral vascular disease ([facility] 02/01/2020 PAD (peripheral artery disease) 01/04/2020 Overview (01/04/2020): Added automatically from request for surgery [id number] Assessment & Plan (05/03/2020 9:42 AM SENIOR BOOKKEEPER): I will continue patient's clopidogrel and statin therapy Assessment & Plan (05/02/2020 9:45 AM SENIOR BOOKKEEPER): I will continue patient's clopidogrel and statin therapy Assessment & Plan (05/01/2020 6:11 PM SENIOR BOOKKEEPER): I will continue patient's clopidogrel and statin therapy Systolic murmur 07/05/2019 Class 2 severe obesity due t o excess calories with serious comorbidity and body mass index (BMI) of 39.0 to 39.9 in adult 09/24/2017 Assessment & Plan (05/02/2020 9:46 AM SENIOR BOOKKEEPER): This raises patient's complication risk related to COVID-19 Assessment & Plan (05/01/2020 6:14 PM SENIOR BOOKKEEPER): This raises patient's complication risk related to COVID-19 Coronary artery disease of n ative artery of [place] heart with stable angina pectoris ([facility]) 03/18/2017 Hx of CABG 03/18/2017 Hypertension associated with diabetes 03/18/2017 S/P coronary artery stent placement 03/18/2017 Obesity with body mass index 30 or greater 02/14 Overview (09/06/2016): Obesity (BMI 35.0-39.9 without comorbidity) Mixed diabetic hyperlipidemi a associated with type 2 diabetes mellitus ([facility]) 12/11/2015 Overview (09/06/2016): DM type 2 with diabetic dyslipidemia Assessment & Plan (05/03/2020 9:42 AM SENIOR BOOKKEEPER): Continue statin therapy Assessment & Plan (05/02/2020 9:45 AM SENIOR BOOKKEEPER): Continue statin therapy Assessment & Plan (05/01/2020 6:11 PM SENIOR BOOKKEEPER): Continue statin therapy Exercise-induced angina 03/01/2015 Overview (09/06/2016): Angina of effort ROYER on CPAP 03/01/2015 Overview (09/06/2016): ROYER on CPAP Assessment & Plan (05/03/2020 9:42 AM SENIOR BOOKKEEPER): - continue CPAP at night Assessment & Plan (05/02/2020 9:45 AM SENIOR BOOKKEEPER): While normally we avoid CPAP in the setting of COVID-19 infection in the hospital, patient tells me that he becomes quite short of breath and has significant apnea without it - continue CPAP at night Assessment & Plan (05/01/2020 6:11 PM SENIOR BOOKKEEPER): While normally we avoid CPAP in the [...] 12/07/2021 Assessment & Plan (05/03/2020 9:44 AM SENIOR BOOKKEEPER): I will continue patient's Plavix, statin, and beta-elan therapy. Assessment & Plan (05/02/2020 9:46 AM SENIOR BOOKKEEPER): I will continue patient's Plavix, statin, and beta-elan therapy. Assessment & Plan (05/01/2020 6:15 PM SENIOR BOOKKEEPER): I will continue patient's Plavix, statin, and beta-elan therapy. Encounters Date Type Department Care Team Description 07/22/2024 Telephone [facility] Cardiology [address] [place] [address] J Carlos Lake MD 06/29/2024 2:00 PM SENIOR BOOKKEEPER Ancillary Procedure [facility] Vascular and Vein Surgery at [address] [place] [address] PAD (peripheral artery disease) from Last 3 Months Surgical History Surgery [...] Sleep apnea cpap at night Atrial fibrillation (HCC) Glaucoma Family History Medical History Relation [...] on file Legal Sex Male 2:06 AM SENIOR BOOKKEEPER Gender Identity Not on file Sexual Orientation Not on file Obstetrics History Last Filed Vital Signs Vital Sign Reading Time Taken Comments Blood Pressure 126/58 06/16/2024 9:47 AM SENIOR BOOKKEEPER Pulse 70 06/16/2024 9:47 AM SENIOR BOOKKEEPER Temperature 36.7 C (98.1 F) 09/26/2023 1:09 PM CDT Respiratory Rate 20 09/26/2023 1:09 PM CDT Oxygen Saturation 97% 06/16/2024 9:47 AM SENIOR BOOKKEEPER Inhaled Oxygen Concentration - - Weight 106.1 kg (234 lb) 06/16/2024 9:47 AM SENIOR BOOKKEEPER Height 167.6 cm (5' 6 ) 06/16/2024 9:47 AM SENIOR BOOKKEEPER Body Mass Index 37.77 06/16/2024 9:47 AM SENIOR BOOKKEEPER Plan of Treatment Health Maintenance Due Date [...] Hemoglobin A1C 10/31/2020 05/02/2020, 05/01/2020 Covid-19 Vaccine (2023-2 5 season) 2024 05/13/2023, 03/15/2022, 10/17/2021, Additional history exists Fall Risk Assessment 09/25/2024 09/26/2023, 03/07/20 21 eGFR 09/25/2024 09/26/2023, 08/31, 04/14/2023, Additional history exists Influenza Vaccine (Season Ended) 2025 03/07/2023, 03/14/2022, 04/19/2021, Additional history exists Lipid Panel 06/16/2025 06/16/2024, 03/04, 03/20/2022, Additional history exists Hepatitis B Screening Completed 12/25/2009 , 07/28/2009, 06/26/2009 Pneumococcal vaccine 65+ Completed 03/14/2022 Zoster Vaccine Completed 11/05/2022, 09/02/2022 Medical Devices Implanted Type Area Devops Consultant Device Identifier Shelf Expiration Date Model / Serial / Lot DemystData [id number] Synergy 3mm 20mm 144cm Radiopaque 1 Access Port Inflation Lumen - [id number] Implanted:Qty: 1 on 01/13/2020 by J Carlos Lake MD at [facility] DemystData [id number] / / DemystData [id number] Synergy 3.5mm 24mm 144cm Radiopaque 1 Access Port Inflation Lumen - [id number] Implanted:Qty: 1 on 01/13/2020 by J Carlos Lake MD at [facility] DemystData [id number] / / Rock Control [id number] Device Closure Angio-Seal Vip Bondek-Plus Polyglyd L70 Cm Od6 Fr Odsec.035 In Vascular - [id number] Implanted:Qty: 1 on 01/13/2020 by J Carlos Lake MD at [facility] Daig Johanna/[employer] [id number] / / Bard Peripheral Vascular [id number] Lifestream 8mm 26mm 80cm Balloon Expandable Low Profile Cover - [id number] Implanted:Qty: 1 on 03/09/2020 by J Carlos Lake MD at [facility] Peripheral Vascular [id number] / / [employer] Johanna [id number] Device Closure Angio-Seal Vip Bondek-Plus Polyglyd L70 Cm Od6 Fr Odsec.035 In Vascular - [id number] Implanted:Qty: 1 on 03/09/2020 by J Carlos Lake MD at [facility] [employer] Johanan[employer] [id number] / / Daig Johanna [id number] Device Closure Angio-Seal Vip Bondek-Plus Polyglyd L70 Cm Od6 Fr Odsec.035 In Vascular - [id number] Implanted:Qty: 1 on 03/09/2020 by J Carlos Lake MD at [facility]/[employer] [id number] / / Medtronic Card Vasc Surgery 3.5 X 15mm [place] Jay Rx Coronary Stent [id number] - [id number] Implanted:Qty: 1 on 2023 by J Carlos Lake MD at [facility] Card Vasc Surgery 01/21/2026 [id number] / / [id number] [employer] [facility] Device Vascular Closure Femoral Artery Bioabsorbable Dual Method Vascade 6-7fr Collagen [id number] - [id number] Implanted:Qty: 1 on 2023 by J Carlos Lake MD at [facility] Medical [facility] 12/24/2024 [id number] / / [id number] Olivas Vascular Device Clsr Perclose Prostyle Sut-Mediatd Closure-Repair Sys 72741-27 - [id number] Implanted:Qty: 1 on 09/25/2023 by J Carlos Lake MD at [facility] [employer] 06/01/2025 [id number] / / [id number] Olivas Vascular Device Clsr Perclose Prostyle Sut-Mediatd Closure-Repair Sys 94231-78 - [id number] Implanted:Qty: 1 on 09/25/2023 by J Carlos Lake MD at [facility] [employer] V[employer] 07/02/2025 [id number] / / [id number] [employer] [facility] Device Closure Vascade Od5 Fr Femoral Artery [id number] - [id number] Implanted:Qty: 1 on 09/25/2023 by J Carlos Lake MD at [facility] Medical [facility] 04/28/2025 [id number] / / [id number] Gonzalez Lifesciences Valve Aortic Trnscath August 3 Ultra Resilia 26mm [id number] - [id number] - [id number] Implanted:Qty: 1 on 09/25/2023 by J Carlos Lake MD at [facility] 10/30/2025 [id number] / [id number] / Procedures Procedure Name Priority Date/Time Associated Diagnosis Comments US ARTERIAL DOPPLER LOWER EXTREMITY BILATERAL Schedule Routine, Read Routine (OP Routine) 06/29/2024 2:28 PM SENIOR BOOKKEEPER PAD (peripheral artery disease) LIPID PANEL Routine 06/16/2024 11:29 AM SENIOR BOOKKEEPER EGFR Routine 09/26/2023 5:36 AM CDT HEMOGLOBIN A1C Routine 05/02/2020 9:36 PM SENIOR BOOKKEEPER from Last 3 Months or Most Recently Relevant to Health Maintenance Results * US Arterial Doppler Lower Extremity Bilateral (06/29/2024 2:28 PM SENIOR BOOKKEEPER) LV EF % CONS SCIMAGE Anatomical Region Laterality Modality Vascular Bilateral Ultrasound 06/29/2024 1:49 PM SENIOR BOOKKEEPER Narrative 06/30/2024 1:09 PM SENIOR BOOKKEEPER Vascular & Vein Surgery [address] [facility] [place] [address] Lower Extremity Arterial Doppler Report Patient Name: FEDERICO RODRIGUEZ TIMOTHY : 1955 Study Date: 06/29/2024 1:49:00 PM Gender: M Fisher Troll Line: Mara Bah RVT Location: VVSE Ref Provider: [...] mmHg Rt Calf Pressure [address] ADMINISTRATOR Pressure [address] ADMINISTRATOR Pressure 141 mmHg Lt DPA Pressure 155 [...] By: Vaughn Hernandez MD 06/30/2024 1:08:11 PM SENIOR BOOKKEEPER Procedure Note Vaughn Hernandez MD - 06/30/2024 Vascular & Vein Surgery [address] [facility] [place] [address] Lower Extremity Arterial Doppler Report Patient Name: FEDERICO RODRIGUEZ TIMOTHY : 1955 Study Date: 06/29/2024 1:49:00 PM Gender: M Fisher Troll Line: Mara Bah RVTuyet Location: VVSE Ref Provider: [...] mmHg Rt Calf Pressure [address] ADMINISTRATOR Pressure [address] ADMINISTRATOR Pressure 141 mmHg Lt DPA Pressure 155 [...] By: Vaughn Hernandez MD 06/30/2024 1:08:11 PM SENIOR BOOKKEEPER J Carlos Lake MD IM US PROCEDURES Final Result * Lipid panel (06/16/2024 11:29 AM SENIOR BOOKKEEPER) SCRIBED Cholesterol, Total 102 <100 - <100 [...] LAB BLOOD ORDERABLES Final Resul t [facility] [id number] [address] Department [place] [address] * (ABNORMAL) Hemoglobin A1c (05/02/2020 9:36 PM SENIOR BOOKKEEPER) Hgb A1C 6.8(H) 4.0 - 5.6 % [facility] Estimated Average Glucose 148 mg/dL [facility] Comment: The ADA recommends reporting an estimated Average Glucose (eAG) with all Hemoglobin A1c results using the equation derived from a study of 507 normal and diabetic adults. Minority populations were underrepresented and children were not included. (Diabetes Care 31:3080-7200, 2008). The eAG is not equivalent to a fasting glucose. Blood specimen (specimen) 05/02/2020 9:36 PM SENIOR BOOKKEEPER 05/02/2020 10:30 PM SENIOR BOOKKEEPER us Alexx Bustamante MD LAB BLOOD ORDERABLES Final R esult [facility] One [facility] Department [place] [address] from Last 3 Months or Most Recently Relevant to Health Maintenance Insurance MEDICARE [facility] CHOICE [facility] H[facility]/PPO Address: [address] [address] [place] [address] MEDICARE [employer] Advance Directives For more information, please contact: [phone] * Full Code (Latest Code Status on File) Date Activated Date Inactivated Comments 05/01/2020 7:33 PM 05/03/2020 10:49 PM Care Teams Gum Worker Relationship Specialty Start Date End Date Michele Harp MD PCP - General 06/04/13
[2024-09-23 09:36] VITALS: BP 150/83; PULSE 68; RESP 16; TEMP 36.1; O2SAT 98; BMI 36.8
--- NOTE | 2024-09-23 09:51 | P.PNAN_ITS ---
Anes - Initial Pre Proc Eval Procedure: Operation Date: 09/23/24 11:00 Proposed Procedures p Colonoscopy - Leonel Bazan MD Date/Time: 09/23/24 09:51 Surgeon: Leonel Bazan MD Pre Op Diagnosis: Personal hx of colon polyps Patient Data Age: 69 Gender: M Height: 1.68 m Weight: 103.7 kg Last Vital Signs Temp 97.0 F L 09/23/24 09:36 Pulse 68 09/23/24 09:36 Resp 16 09/23/24 09:36 BP 150/83 H 09/23/24 09:36 Pulse Ox 68 L 09/23/24 09:36 O2 Del Method Room Air 09/23/24 09:36 Allergies Allergy/AdvReac Type Severity Reaction Status Date / Time No Known Allergies Allergy Verified 09/23/24 09:33 Home Medications ?Medication ?Instructions ?Recorded ?Confirmed ?Type clopidogrel 75 mg tablet 75 mg PO DAILY 01/04/20 09/23/24 History furosemide 40 mg tablet 40 mg PO DAILY 01/04/20 09/23/24 History icosapent ethyl 1 gram capsule 2 g PO BID 01/04/20 09/23/24 History (Vascepa) nitroglycerin 0.4 mg sublingual 0.4 mg sublingual Q5M PRN Chest 01/04/20 09/15/24 History tablet (Nitrostat) Pain rosuvastatin 40 mg tablet (Crestor) 40 mg PO DAILY 01/04/20 09/23/24 History alpha lipoic acid 200 mg capsule 200 mg PO TID 05/17/20 09/23/24 History metoprolol tartrate 25 mg tablet 50 mg PO BID 06/11/20 09/23/24 History apixaban 5 mg tablet (Eliquis) 5 mg PO Q12HR #60 tabs 06/12/20 09/23/24 Rx metformin 500 mg tablet 1,000 mg (2 x 500 mg) PO BID #180 04/01/24 09/23/24 Rx tabs pen needle, diabetic 31 gauge x #1,200 ea 05/12/24 09/15/24 Rx 5/16 (Easy Comfort Pen [place]) pantoprazole 40 mg tablet,delayed See Rx Instructions .Route 05/31/24 09/23/24 Rx release .COMPLEX #180 tabs fluticasone propionate 50 2 spray intranasal DAILY #16 grams 07/02/24 09/23/24 Rx mcg/actuation nasal spray,suspension (Flonase Allergy Relief) isosorbide mononitrate 60 mg 60 mg PO DAILY 07/02/24 09/23/24 History tablet,extended release 24 hr glimepiride 4 mg tablet 4 mg PO BID #180 tabs 07/14/24 09/23/24 Rx insulin glargine 100 unit/mL (3 See Rx Instructions .Route 08/11/24 09/23/24 Rx mL) subcutaneous pen (Lantus .COMPLEX #60 mL Solostar U-100 Insulin) tirzepatide 10 mg/0.5 mL See Rx Instructions .Route 08/13/24 09/23/24 Rx subcutaneous pen injector .COMPLEX #6 mL (Mounjaro) lisinopril 40 mg tablet 20 mg PO DAILY 09/15/24 09/23/24 History Patient hx anesthesia problems: none Family hx anesthesia problems: none Results Review: All pre-operative results and documents have been reviewed as part of the pre-operative evaluation. [facility] Past Medical History Medical History Essential hypertension Obstructive sleep apnea on CPAP Congestive heart failure Peripheral vascular disease Coronary artery disease Gastroesophageal reflux disease Insulin dependent type 2 diabetes mellitus Left ventricular hypertrophy COVID-19 (~04/2020) Aortic regurgitation Aortic stenosis Mixed hyperlipidemia Surgical History Surgical History S/P insertion of iliac artery stent S/P TAVR (transcatheter aortic valve replacement) History of vascular surgery Right lower extremity stent. History of cardiac catheterization With several stents, most recent in January 2020. Status post coronary artery bypass grafts x 5 (~04/16/15) Performed at [facility]. Family History Family History Father Patient's father is Mother Alzheimer dementia Other Family history of cardiovascular disease Hypertension Social History Social History Social History: The patient lives in [place] with his . 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 Former smoker. No alcohol or illicit substance abuse. He designates his Aarti as his surrogate shanti staley maker and he wishes to be a full code. Smoking status: Former smoker Tobacco type: cigarettes Substance use type: does not use Lack of Transportation: No Lack of Food: Never True Current Housing: I Have Housing Concerned About Future Housing: No Difficulty Paying Gas/Electric Bills: No Difficulty Paying for Meds: No Currently Unemployed: No Education: High School Diploma/GED Difficulty w/ Childcare or Family Care: No Gender identity (if verbalized by the patient): Male Spiritual care concerns: No Anes - Eval Final PreProcedure Day of Procedure 09/23/24 09:51 Patient weight: obese Heart: regular rate and rhythm Lungs: clear to auscultation Airway: Mallampati scale class III Neurological: alert and oriented Last oral intake: >/= 8 hours ASA classification: III Emergent: no Anesthetic plan: proceed Anesthesia type and monitoring: general GIVS and standard monitoring Results Review: All pre-operative results and documents have been reviewed as part of the pre- operative evaluation. Informed Consent: The patient's anesthetic plan and its attendant risks and benefits were discu ssed with the patient/family/POA. Questions were solicited and answers provided to the satisfaction of the patient/family/POA.
[2024-09-23] MEDS: LACTATED RINGERS 1,000 ML 150 ML IV CONT (09:53)
[2024-09-23] MEDS: GENTAMICIN 80MG/SOD CHL 50 ML 80 MG/50 ML BAG 100 MG IVPB (09:54)
[2024-09-23 09:56] LABS: Glucose Point of Care 115 mg/dl (65-105)
[2024-09-23] MEDS: AMPICILLIN 2 GM/NS 100 ML 2 GM/100 ML BAG IVPB (10:18)
--- NOTE | 2024-09-23 10:20 | PM.HPGS ---
History of Present Illness History of Present Illness Consent: Risks, benefits, and alternatives have been discussed and questions answered. Patient agrees to proceed with procedure. Chief complaint: Personal hx of colon polyps Narrative: Laurent Delgado is a 69 year old male here for screening colonoscopy, last one 2012 Review of Systems Review of Systems: All systems reviewed & are unremarkable except as noted in HPI and below PMFSH Past Medical History Medical History (Updated 09/23/24 @ 10:21 by Leonel Bazan MD) Colon cancer screening Essential hypertension Obstructive sleep apnea on CPAP Congestive heart failure Peripheral vascular disease Coronary artery disease Gastroesophageal reflux disease Insulin dependent type 2 diabetes mellitus Left ventricular hypertrophy COVID-19 (~04/2020) Aortic regurgitation Aortic stenosis Mixed hyperlipidemia Surgical History Surgical History S/P insertion of iliac artery stent S/P TAVR (transcatheter aortic valve replacement) History of vascular surgery Right lower extremity stent. History of cardiac catheterization With several stents, most recent in January 2020. Status post coronary artery bypass grafts x 5 (~04/16/15) Performed at [facility]. Family History Family History Father Patient's father is Mother Alzheimer dementia Other Family history of cardiovascular disease Hypertension Social History Social History Social History: The patient lives in [place] with his . 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 Former smoker. No alcohol or illicit substance abuse. He designates his Aarti as his surrogate decision maker and he wishes to be a full code. Smoking status: Former smoker Tobacco type: cigarettes Substance use type: does not use Lack of Transportation: No Lack of Food: Never True Current Housing: I Have Housing Concerned About Future Housing: No Difficulty Paying Gas/Electric Bills: No Difficulty Paying for Meds: No Currently Unemployed: No Education: High School Diploma/GED Difficulty w/ Childcare or Family Care: No Gender identity (if verbalized by the patient): Male Spiritual care concerns: No Meds Home Medications and Allergies Home Medications ?Medication ?Instructions ?Recorded ?Confirmed ?Type clopidogrel 75 mg tablet 75 mg PO DAILY 01/04/20 09/23/24 History furosemide 40 mg tablet 40 mg PO DAILY 01/04/20 09/23/24 History icosapent ethyl 1 gram capsule 2 g PO BID 01/04/20 09/23/24 History (Vascepa) nitroglycerin 0.4 mg sublingual 0.4 mg sublingual Q5M PRN Chest 01/04/20 09/15/24 History tablet (Nitrostat) Pain rosuvastatin 40 mg tablet (Crestor) 40 mg PO DAILY 01/04/20 09/23/24 History alpha lipoic acid 200 mg capsule 200 mg PO TID 05/17/20 09/23/24 History metoprolol tartrate 25 mg tablet 50 mg PO BID 06/11/20 09/23/24 History apixaban 5 mg tablet (Eliquis) 5 mg PO Q12HR #60 tabs 06/12/20 09/23/24 Rx metformin 500 mg tablet 1,000 mg (2 x 500 mg) PO BID #180 04/01/24 09/23/24 Rx tabs pen needle, diabetic 31 gauge x #1,200 ea 05/12/24 09/15/24 Rx 5/16 (Easy Comfort Pen [place]) pantoprazole 40 mg tablet,delayed See Rx Instructions .Route 05/31/24 09/23/24 Rx release .COMPLEX #180 tabs fluticasone propionate 50 2 spray intranasal DAILY #16 grams 07/02/24 09/23/24 Rx mcg/actuation nasal spray,suspension (Flonase Allergy Relief) isosorbide mononitrate 60 mg 60 mg PO DAILY 07/02/24 09/23/24 History tablet,extended release 24 hr glimepiride 4 mg tablet 4 mg PO BID #180 tabs 07/14/24 09/23/24 Rx insulin glargine 100 unit/mL (3 See Rx Instructions .Route 08/11/24 09/23/24 Rx mL) subcutaneous pen (Lantus .COMPLEX #60 mL Solostar U-100 Insulin) tirzepatide 10 mg/0.5 mL See Rx Instructions .Route 08/13/24 09/23/24 Rx subcutaneous pen injector .COMPLEX #6 mL (Mounjaro) lisinopril 40 mg tablet 20 mg PO DAILY 09/15/24 09/23/24 History Allergies Allergy/AdvReac Type Severity Reaction Status Date / Time No Known Allergies Allergy Verified 09/23/24 09:33 Vital Signs Vital Signs - 24 hr 09/23/24 09:36 Temperature 97.0 F L Pulse Rate 68 Respiratory Rate 16 Blood Pressure 150/83 H Pulse Oximetry 68 L Oxygen Delivery Room Air Exam Const: General: comfortable and no acute distress HENMT: Face/Nose/Sinus: Normal nares present Eyes: General: appearance normal, both eyes and all related structures Neck: Neck: no JVD Resp: Auscultation: clear to auscultation bilaterally Cardio: Rate: regular rate Rhythm: regular rhythm GI: Inspection: non-distended GI Palp: Yes Soft to palpation Skin: General skin exam: normal color Neuro: Speech: normal speech Extrem: General: normal to inspection Psych: Mental Status: mental status grossly normal Assessment and Plan Assessment and plan (1) Colon cancer screening: Code(s): Z12.11 - Encounter for screening for malignant neoplasm of colon Status: Acute Assessment and Plan: colonoscopy
[2024-09-23 10:35] VITALS: BP 117/47; PULSE 72; RESP 18; O2SAT 95
[2024-09-23 10:45] VITALS: BP 121/49; PULSE 65; RESP 17; O2SAT 97
[2024-09-23 10:55] VITALS: BP 132/53; PULSE 66; RESP 19; O2SAT 98
[2024-09-23 10:55] LABS: Glucose Point of Care 101 mg/dl (65-105)
== END 2024-09-23 11:10 | disposition home or self-care (01) ==
PROVIDERS: PCP Family Medicine; Referring Provider Family Medicine; Visit Provider Internal Medicine Gastroenterology
PROC: 0DJD8ZZ Inspection of Lower Intestinal Tract, Via Natural or Artificial Opening Endoscopic (ICD-10-PCS; CPT 45378; principal; 2024-09-23 11:00)
DX: Z12.11 Encounter for screening for malignant neoplasm of colon (principal); D12.2 Benign neoplasm of ascending colon; K62.1 Rectal polyp; K21.9 Gastro-esophageal reflux disease without esophagitis; E11.9 Type 2 diabetes mellitus without complications; E78.2 Mixed hyperlipidemia; I11.0 Hypertensive heart disease with heart failure; I50.9 Heart failure, unspecified; G47.33 Obstructive sleep apnea (adult) (pediatric); I73.9 Peripheral vascular disease, unspecified; I25.10 Atherosclerotic heart disease of native coronary artery without angina pectoris; I35.0 Nonrheumatic aortic (valve) stenosis; I35.1 Nonrheumatic aortic (valve) insufficiency; E66.9 Obesity, unspecified; Z68.36 Body mass index [BMI] 36.0-36.9, adult; Z79.4 Long term (current) use of insulin; Z79.02 Long term (current) use of antithrombotics/antiplatelets; Z79.01 Long term (current) use of anticoagulants; Z79.84 Long term (current) use of oral hypoglycemic drugs; Z79.85 Long-term (current) use of injectable non-insulin antidiabetic drugs; Z99.89 Dependence on other enabling machines and devices; Z98.890 Other specified postprocedural states; Z95.1 Presence of aortocoronary bypass graft; Z95.5 Presence of coronary angioplasty implant and graft; Z87.891 Personal history of nicotine dependence; Z82.49 Family history of ischemic heart disease and other diseases of the circulatory system
CPT/HCPCS: 45380; 82948; 88305; J0290; J1580; J2704; J7120

== ENCOUNTER 2024-10-11 08:23 | Outpatient (CLI) | payer MEDICARE, SELFPAY ==
--- OUTSIDE RECORDS SUMMARY | 2024-10-11 08:30 | XMS_ITS | Referral Summary ---
Author Organization [facility] [address] [facility] [address] Address [address] [place] [address] Care Team Providers Care Electric Repair Supervisor Name Role Phone Michele Harp MD Primary Care Provider [phone] Encounters Date Type Department Care Team Description 10/06/2024 Telephone [facility] Cardiology [address] [place] [address] J Carlos Quinones MD 07/22/2024 Telephone [facility] Cardiology [address] [place] [address] J Carlos Quinones MD from Last 3 Months Allergies No known active allergies Medications blood glucose diagnostic (ONETOUCH ULTRA TEST) strip 0 0 06/04/19 14 Active lancets (onetouch ultrasoft) misc 0 each 0 06/04/19 14 Active VASCEPA 1 gram capsule Take 2 capsules (2 g total) by mouth 2 (two) times a day 05/24/20 19 Active alpha lipoic acid 100 mg capsule Take 2 capsules (200 mg total) by mouth 2 (two) times a day Active glimepiride (AMARYL) 4 mg tablet Take 1 tablet (4 mg total) by mouth daily 06/20/[address] (PROTONIX) 40 mg EC tablet Take 1 tablet (40 mg total) by mouth 2 (two) times a day 03/03/20 23 Active nitroglycerin (NITROSTAT) 0.[address] 1 tablet (0.4 mg total) under the tongue every 5 (five) minutes as needed for chest pain 25 tablet 04/15/20 23 Active tirzepatide (MOUNJARO) 10 mg/0.5 mL pen injector Inject 10 mg under the skin once a week Mondays05/14/20 23 Active LANTUS 100 unit/mL (3 mL) pen for injection Inject 65 Units under the skin nightly 08/28/19 24 Active metFORMIN XR (GLUCOPHAGE XR) 500 mg 24 hr tablet Take 2 tablets (1,000 mg total) by mouth 2 (two) times a day 08/26/19 24 Active fexofenadine (WES) 60 mg tablet Take 1 tablet (60 mg total) by mouth 2 (two) times a day as needed Active multivitamin tabletIndicatio ns:Vitamin Deficiency Prevention Take 1 tablet by mouth [...] total) by mouth every 6 (six) hours 09/19/19 24 Active furosemide (LASIX) 40 mg tablet TAKE 1 TABLET BY MOUTH DAILY 90 tablet 3 01/01/20 24 Active lisinopriL (PRINIVIL,ZESTR IL) 20 mg tablet TAKE 1 TABLET BY MOUTH DAILY 90 tablet 3 01/01/20 24 Active rosuvastatin (CRESTOR) 40 mg tablet TAKE 1 TABLET BY MOUTH DAILY 90 tablet 3 01/01/20 24 Active metoprolol tartrate (LOPRESSOR) 50 mg immediate release tablet TAKE 1 TABLET BY MOUTH TWICE DAILY 180 tablet 3 01/01/20 24 Active clopidogreL (PLAVIX) 75 mg tablet TAKE 1 TABLET BY MOUTH DAILY 90 tablet 3 01/01/20 24 Active isosorbide mononitrate ER (IMDUR) 60 mg 24 hr tablet Take 1 tablet (60 mg total) by mouth daily 90 tablet 1 05/14/20 24 Active Eliquis 5 mg tabletIndicatio ns:Paroxysmal atrial flutter (HCC) TAKE 1 TABLET BY MOUTH TWICE DAILY 180 tablet 3 10/08/19 25 Active apixaban (Eliquis) 5 mg tabletIndicatio ns:Paroxysmal atrial flutter (HCC) TAKE 1 TABLET BY MOUTH TWICE DAILY 180 tablet 3 11/21/19 24 025 Discontinued Active Problems Problem Noted Date Diagnosed Date S/p TAVR (transcatheter aort ic valve replacement), bioprosthetic 09/25/2023 Severe aortic stenosis 08/25/2023 Morbid (severe) obesity due to excess calories 1 COVID-19 virus infection 05/01/2020 Assessment & Plan (05/03/2020 9:44 AM TIRE RECAPPER): - He presented with malaise, cough, shortness of breath. Symptoms began approximately on 2020. Vital signs on admission hypoxemia. A CXR obtained on admission showed bilateral infiltrates. - COVID-19 RNA PCR was sent on April 20, 2020 at [facility].. The patient's testing for COVID-19 is [...] decide Assessment & Plan (05/02/2020 9:46 AM TIRE RECAPPER): - He presented with malaise, cough, shortness of breath. Symptoms began approximately on 2020. Vital signs on admission hypoxemia. A CXR obtained on admission showed bilateral infiltrates. - COVID-19 RNA PCR was sent on April 20, 2020 at [facility].. The patient's testing for COVID-19 is [...] treatment. Assessment & Plan (05/01/2020 6:15 PM TIRE RECAPPER): - He presented with malaise, cough, shortness of breath. Symptoms began approximately on 2020. Vital signs on admission hypoxemia. A CXR obtained on admission showed bilateral infiltrates. - COVID-19 RNA PCR was sent on April 20, 2020 at [facility] in [facility].. The patient's testing for COVID-19 [...] 2019 Assessment & Plan (05/03/2020 9:45 AM TIRE RECAPPER): This seems to be improved. I have asked the pulmonary rehab team to evaluate the patient to see if he might need oxygen at discharge - possible discharge later today or tomorrow Assessment & Plan (05/02/2020 9:46 AM TIRE RECAPPER): I will treat the patient with oxygen to maintain adequate oxygenation and treat his other issues as per below. Assessment & Plan (05/01/2020 6:15 PM TIRE RECAPPER): I will treat the patient with oxygen to maintain adequate oxygenation and treat his other issues as per below. DM2 (diabetes mellitus, type 2) 05/01/2020 Assessment & Plan (05/03/2020 9:43 AM TIRE RECAPPER): Doing well on current Lantus at night and NPH with dexamethasone - likely continue this at discharge Assessment & Plan (05/02/2020 9:46 AM TIRE RECAPPER): Lantus reduced to 40 units last night - will give NPH with dexamethasone today and follow sugars Assessment & Plan (05/01/2020 6:12 PM TIRE RECAPPER): As per history of present illness, patient [...] 04/05/2020 Assessment & Plan (05/03/2020 9:44 AM TIRE RECAPPER): Continue apixaban, BB Chronic anticoagulation 04/05/2020 Aortic stenosis 02/01/2020 Claudication in peripheral vascular disease ([facility] /HCC) 02/01/2020 PAD (peripheral artery disease) 01/04/2020 Overview (01/04/2020): Added automatically from request for surgery [id number] Assessment & Plan (05/03/2020 9:42 AM TIRE RECAPPER): I will continue patient's clopidogrel and statin therapy Assessment & Plan (05/02/2020 9:45 AM TIRE RECAPPER): I will continue patient's clopidogrel and statin therapy Assessment & Plan (05/01/2020 6:11 PM TIRE RECAPPER): I will continue patient's clopidogrel and statin therapy Systolic murmur 07/05/2019 Class 2 severe obesity due t o excess calories with serious comorbidity and body mass index (BMI) of 39.0 to 39.9 in adult 09/24/2017 Assessment & Plan (05/02/2020 9:46 AM TIRE RECAPPER): This raises patient's complication risk related to COVID-19 Assessment & Plan (05/01/2020 6:14 PM TIRE RECAPPER): This raises patient's complication risk related to COVID-19 Coronary artery disease of n ative artery of [place] heart with stable angina pectoris ([facility]) 03/18/2017 Hx of CABG 03/18/2017 Hypertension associated with diabetes 03/18/2017 S/P coronary artery stent placement 03/18/2017 Obesity with body mass index 30 or greater 02/14 Overview (09/06/2016): Obesity (BMI 35.0-39.9 without comorbidity) Mixed diabetic hyperlipidemi a associated with type 2 diabetes mellitus ([facility]) 12/11/2015 Overview (09/06/2016): DM type 2 with diabetic dyslipidemia Assessment & Plan (05/03/2020 9:42 AM TIRE RECAPPER): Continue statin therapy Assessment & Plan (05/02/2020 9:45 AM TIRE RECAPPER): Continue statin therapy Assessment & Plan (05/01/2020 6:11 PM TIRE RECAPPER): Continue statin therapy Exercise-induced angina 03/01/2015 Overview (09/06/2016): Angina of effort ROYER on CPAP 03/01/2015 Overview (09/06/2016): ROYER on CPAP Assessment & Plan (05/03/2020 9:42 AM TIRE RECAPPER): - continue CPAP at night Assessment & Plan (05/02/2020 9:45 AM TIRE RECAPPER): While normally we avoid CPAP in the setting of COVID-19 infection in the hospital, patient tells me that he becomes quite short of breath and has significant apnea without it - continue CPAP at night Assessment & Plan (05/01/2020 6:11 PM TIRE RECAPPER): While normally we avoid CPAP in the [...] 12/07/2021 Assessment & Plan (05/03/2020 9:44 AM TIRE RECAPPER): I will continue patient's Plavix, statin, and beta-elan therapy. Assessment & Plan (05/02/2020 9:46 AM TIRE RECAPPER): I will continue patient's Plavix, statin, and beta-elan therapy. Assessment & Plan (05/01/2020 6:15 PM TIRE RECAPPER): I will continue patient's Plavix, statin, and [...] on file Legal Sex Male 2:06 AM TIRE RECAPPER Gender Identity Not on file Sexual Orientation Not on file Last Filed Vital Signs Vital Sign Reading Time Taken Comments Blood Pressure 126/58 06/16/2024 9:47 AM TIRE RECAPPER Pulse 70 06/16/2024 9:47 AM TIRE RECAPPER Temperature 36.7 C (98.1 F) 09/26/2023 1:09 PM CDT Respiratory Rate 20 09/26/2023 1:09 PM CDT Oxygen Saturation 97% 06/16/2024 9:47 AM TIRE RECAPPER Inhaled Oxygen Concentration - - Weight 106.1 kg (234 lb) 06/16/2024 9:47 AM TIRE RECAPPER Height 167.6 cm (5' 6 ) 06/16/2024 9:47 AM TIRE RECAPPER Body Mass Index 37.77 06/16/2024 9:47 AM TIRE RECAPPER Plan of Treatment Not on file Medical Devices Implanted Type Area Gun Number Device Identifier Shelf Expiration Date Model / Serial / Lot [employer] [id number] Synergy 3mm 20mm 144cm Radiopaque 1 Access Port Inflation Lumen - [id number] Implanted:Qty: 1 on 01/13/2020 by J Carlos Quinones MD at [facility] [employer] [id number] / / [employer] [id number] Synergy 3.5mm 24mm 144cm Radiopaque 1 Access Port Inflation Lumen - [id number] Implanted:Qty: 1 on 01/13/2020 by J Carlos Quinones MD at [facility] [employer] [id number] / / [id number] Device Closure Angio-Seal Vip Bondek-Plus Polyglyd L70 Cm Od6 Fr Odsec.035 In Vascular - [id number] Implanted:Qty: 1 on 01/13/2020 by J Carlos Quinones MD at [facility] Tuee/[employer] [id number] / / Bard Peripheral Vascular [id number] Lifestream 8mm 26mm 80cm Balloon Expandable Low Profile Cover - [id number] Implanted:Qty: 1 on 03/09/2020 by J Carlos Quinones MD at [facility] Peripheral Vascular [id number] / / [id number] Switch Identity Governance [id number] Device Closure Angio-Seal Vip Bondek-Plus Polyglyd L70 Cm Od6 Fr Odsec.035 In Vascular - [id number] Implanted:Qty: 1 on 03/09/2020 by J Carlos Quinones MD at [facility] Daig Johanna[employer] [id number] / / Daig Johanna [id number] Device Closure Angio-Seal Vip Bondek-Plus Polyglyd L70 Cm Od6 Fr Odsec.035 In Vascular - [id number] Implanted:Qty: 1 on 03/09/2020 by J Carlos Quinones MD at [facility] [employer]anna[employer] [id number] / / Medtronic Card Vasc Surgery 3.5 X 15mm [place] [facility] [employer] Coronary Stent [id number] - [id number] Implanted:Qty: 1 on 2023 by J Carlos Quinones MD at [facility] Vasc Surgery 01/21/2026 [id number] / / [id number] [employer] [facility] Device Vascular Closure Femoral Artery Bioabsorbable Dual Method Vascade 6-7fr Collagen [id number] - [id number] Implanted:Qty: 1 on 2023 by J Carlos Quinones MD at [facility] Medical [facility] 12/24/2024 [id number] / / [id number] [employer] Vascular Device Clsr Perclose Prostyle Sut-Mediatd Closure-Repair Sys 51340-30 - [id number] Implanted:Qty: 1 on 09/25/2023 by J Carlos Quinones MD at [facility] [employer] 06/01/2025 [id number] / / [id number] [employer] Vascular Device Clsr Perclose Prostyle Sut-Mediatd Closure-Repair Sys 46667-97 - [id number] Implanted:Qty: 1 on 09/25/2023 by J Carlos Quinones MD at [facility] Vascular 07/02/2025 [id number] / / [id number] [employer] Device Closure Vascade Od5 Fr Femoral Artery [id number] - [id number] Implanted:Qty: 1 on 09/25/2023 by J Carlos Quinones MD at [facility] Medical [facility] 04/28/2025 [id number] / / [id number] Gonzalez Lif[employer] Valve Aortic Trnscath August 3 Ultra Resilia 26mm [id number] - [id number] - [id number] Implanted:Qty: 1 on 09/25/2023 by J Carlos Quinones MD at [facility] 10/30/2025 [id number] / [id number] / Procedures Procedure Name Priority Date/Time Associated Diagnosis Comments LIPID PANEL Routine 06/16/2024 11:29 AM TIRE RECAPPER EGFR Routine 09/26/2023 5:36 AM CDT HEMOGLOBIN A1C Routine 05/02/2020 9:36 PM TIRE RECAPPER from Last 3 Months or Most Recently Relevant to Health Maintenance Results * Lipid panel (06/16/2024 11:29 AM TIRE RECAPPER) SCRIBED Cholesterol, Total 102 <100 - <100 [...] 09/26/2023 5:48 AM CDT us J Carlos Quinones MD LAB BLOOD ORDERABLES Final Resul t Performing Organization Address [facility] Co de Phone Number [facility] [address] Department [place] [address] * (ABNORMAL) Hemoglobin A1c (05/02/2020 9:36 PM TIRE RECAPPER) Hgb A1C 6.8(H) 4.0 - 5.6 % [facility] Estimated Average Glucose 148 mg/dL [facility] Comment: The ADA recommends reporting an estimated Average Glucose (eAG) with all Hemoglobin A1c results using the equation derived from a study of 507 normal and diabetic adults. Minority populations were underrepresented and children were not included. (Diabetes Care 31:2928-3723, 2008). The eAG is not equivalent to a fasting glucose. Blood specimen (specimen) 05/02/2020 9:36 PM TIRE RECAPPER 05/02/2020 10:30 PM TIRE RECAPPER us Alexx Bustamante MD LAB BLOOD ORDERABLES Final R esult Performing Organization Address [facility] de Phone Number [facility] Department [place] [address] from Last 3 Months or Most Recently Relevant to Health Maintenance Insurance MEDICARE [facility] CHOICE PLUS MEDICARE [facility] MEDICARE [facility] Advance Directives For more information, please contact: [phone] * Full Code (Latest Code Status on File) Date Activated Date Inactivated Comments 05/01/2020 7:33 PM 05/03/2020 10:49 PM Care Teams Electric Repair Supervisor Relationship Specialty Start Date End Date Michele Harp MD PCP - General 06/04/13
--- OUTSIDE RECORDS SUMMARY | 2024-10-11 08:30 | XMS_ITS | Encounter Summary ---
Author Organization [facility] Healthcare Address [address] [place] [address] Care Team Providers Care Catheter Finisher And Inspector Name Role Phone Michele Harp MD Primary Care Provider [phone] Encounter Details Date Type Department Care Team (Late st Contact Info) Description 10/06/2024 Telephone [facility] Medical Group Cardiology [address] [place] [address] J Carlos Quinones MD [address] [facility] [address] [place], [place] [id number] Social History Tobacco Use Types Packs/Day Years [...] on file 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 There was no mention or ask about an eliquis hold. If a new clearance is needwith different requests advised them to refax the clearance for DK to address at [phone]. * Telephone Encounter - Apple Beltran - 10/06/2024 2:44 PM CDT Emily chambers/ anesthesia at is called regarding the cardiac clearance. They are confused about the medication and if the pt is cleared to stop taking both the clopidogreL (PLAVIX) 75 mg and the apixaban (Eliquis) 5 mg for 5 days prior to the procedure on 10/20 or if he is not clear. Please advise Thank you Contact: documented in this encounter Plan of Treatment Not on file documented as of this encounter Visit Diagnoses Not on filedocumented in this encounter Care Teams Catheter Finisher And Inspector Relationship Specialty Start Date End Date Michele Harp MD PCP - General 06/04/13 documented as of this encounter
--- OUTSIDE RECORDS SUMMARY | 2024-10-11 08:30 | XMS_ITS | Clinical Summary ---
Author Organization [facility] [address] Address [address] [place] [address] Care Team Providers Care Residential Mental Health Worker Name Role Phone Michele Harp MD Primary Care Provider [phone] Allergies No known active allergies Medications blood [...] Assessment & Plan (05/03/2020 9:[address] OFFICE ASSISTANT): - He presented with malaise, cough, shortness [...] Assessment & Plan (05/02/2020 9:[address] OFFICE ASSISTANT): - He presented with malaise, cough, shortness of breath. Symptoms began approximately on 2020. Vital signs on admission hypoxemia. A CXR obtained on admission showed bilateral infiltrates. - COVID-19 RNA PCR was sent on April 20, 2020 at [facility] in [facility].. The patient's testing for COVID-19 is POSITIVE. [...] Assessment & Plan (05/01/2020 6:[address] OFFICE ASSISTANT): - He presented with malaise, cough, shortness of breath. Symptoms began approximately on 2020. Vital signs on admission hypoxemia. A CXR obtained on admission showed bilateral infiltrates. - COVID-19 RNA PCR was sent on April 20, 2020 at [facility] in [facility].. The patient's testing for COVID-19 is POSITIVE. [...] Assessment & Plan (05/03/2020 9:[address] OFFICE ASSISTANT): This seems to be improved. I have asked the pulmonary rehab team to evaluate the patient to see if he might need oxygen at discharge - possible discharge later today or tomorrow Assessment & Plan (05/02/2020 9:[address] OFFICE ASSISTANT): I will treat the patient with oxygen to maintain adequate oxygenation and treat his other issues as per below. Assessment & Plan (05/01/2020 6:[address] OFFICE ASSISTANT): I will treat the patient with oxygen to maintain adequate oxygenation and treat his other issues as per below. DM2 (diabetes mellitus, type 2) 05/01/2020 Assessment & Plan (05/03/2020 9:[address] OFFICE ASSISTANT): Doing well on current Lantus at night and NPH with dexamethasone - likely continue this at discharge Assessment & Plan (05/02/2020 9:[address] OFFICE ASSISTANT): Lantus reduced to 40 units last night - will give NPH with dexamethasone today and follow sugars Assessment & Plan (05/01/2020 6:[address] OFFICE ASSISTANT): As per history of present illness, patient [...] Assessment & Plan (05/03/2020 9:[address] OFFICE ASSISTANT): Continue apixaban, BB Chronic anticoagulation 04/05/2020 Aortic stenosis 02/01/2020 Claudication in peripheral vascular disease ([facility]) 02/01/2020 PAD (peripheral artery disease) 01/04/2020 Overview (01/04/2020): Added automatically from request for surgery [id number] Assessment & Plan (05/03/2020 9:[address] OFFICE ASSISTANT): I will continue patient's clopidogrel and statin therapy Assessment & Plan (05/02/2020 9:[address] OFFICE ASSISTANT): I will continue patient's clopidogrel and statin therapy Assessment & Plan (05/01/2020 6:[address] OFFICE ASSISTANT): I will continue patient's clopidogrel and statin therapy Systolic murmur 07/05/2019 Class 2 severe obesity due t o excess calories with serious comorbidity and body mass index (BMI) of 39.0 to 39.9 in adult 09/24/2017 Assessment & Plan (05/02/2020 9:[address] OFFICE ASSISTANT): This raises patient's complication risk related to COVID-19 Assessment & Plan (05/01/2020 6:[address] OFFICE ASSISTANT): This raises patient's complication risk related to COVID-19 Coronary artery disease of n ative artery of [place] heart with stable angina pectoris ([facility]) 03/18/2017 Hx of CABG 03/18/2017 Hypertension associated with diabetes 03/18/2017 S/P coronary artery stent placement 03/18/2017 Obesity with body mass index 30 or greater 02/14 Overview (09/06/2016): Obesity (BMI 35.0-39.9 without comorbidity) Mixed diabetic hyperlipidemi a associated with type 2 diabetes mellitus ([facility]) 12/11/2015 Overview (09/06/2016): DM type 2 with diabetic dyslipidemia Assessment & Plan (05/03/2020 9:[address] OFFICE ASSISTANT): Continue statin therapy Assessment & Plan (05/02/2020 9:[address] OFFICE ASSISTANT): Continue statin therapy Assessment & Plan (05/01/2020 6:[address] OFFICE ASSISTANT): Continue statin therapy Exercise-induced angina 03/01/2015 Overview (09/06/2016): Angina of effort ROYER on CPAP 03/01/2015 Overview (09/06/2016): ROYER on CPAP Assessment & Plan (05/03/2020 9:[address] OFFICE ASSISTANT): - continue CPAP at night Assessment & Plan (05/02/2020 9:[address] OFFICE ASSISTANT): While normally we avoid CPAP in the setting of COVID-19 infection in the hospital, patient tells me that he becomes quite short of breath and has significant apnea without it - continue CPAP at night Assessment & Plan (05/01/2020 6:[address] OFFICE ASSISTANT): While normally we avoid CPAP in the [...] Assessment & Plan (05/03/2020 9:[address] OFFICE ASSISTANT): I will continue patient's Plavix, statin, and beta-elan therapy. Assessment & Plan (05/02/2020 9:[address] OFFICE ASSISTANT): I will continue patient's Plavix, statin, and beta-elan therapy. Assessment & Plan (05/01/2020 6:[address] OFFICE ASSISTANT): I will continue patient's Plavix, statin, and beta-elan therapy. Encounters Date Type Department Care Team Description 10/06/2024 Telephone [facility] Cardiology [address] [place] [address] J Carlos Quinones MD 07/22/2024 Telephone [facility] Cardiology [address] [place] [address] J Carlos Quinones MD from Last 3 Months Surgical History Surgery [...] file Legal Sex Male 2:[address] OFFICE ASSISTANT Gender Identity Not on file Sexual Orientation Not on file Obstetrics History Last Filed Vital Signs Vital Sign Reading Time Taken Comments Blood Pressure 126/58 06/16/2024 9:[address] OFFICE ASSISTANT Pulse 70 06/16/2024 9:[address] OFFICE ASSISTANT Temperature 36.7 C (98.1 F) 09/26/2023 1:09 PM CDT Respiratory Rate 20 09/26/2023 1:09 PM CDT Oxygen Saturation 97% 06/16/2024 9:[address] OFFICE ASSISTANT Inhaled Oxygen Concentration - - Weight 106.1 kg (234 lb) 06/16/2024 9:[address] OFFICE ASSISTANT Height 167.6 cm (5' 6 ) 06/16/2024 9:[address] OFFICE ASSISTANT Body Mass Index 37.77 06/16/2024 9:[address] OFFICE ASSISTANT Plan of Treatment Health Maintenance Due Date [...] 11/05/2022, 09/02/2022 Medical Devices Implanted Type Area Citrus Picker Device Identifier Shelf Expiration Date Model / Serial / Lot [employer] [id number] Synergy 3mm 20mm 144cm Radiopaque 1 Access Port Inflation Lumen - [id number] Implanted:Qty: 1 on 01/13/2020 by J Carlos Quinones MD at [facility] [employer] [id number] / / [employer] [id number] Synergy 3.5mm 24mm 144cm Radiopaque 1 Access Port Inflation Lumen - [id number] Implanted:Qty: 1 on 01/13/2020 by J Carlos Quinones MD at [facility] [employer] [id number] / / [id number] [id number] Device Closure Angio-Seal Vip Bondek-Plus Polyglyd L70 Cm Od6 Fr Odsec.035 In Vascular - [id number] Implanted:Qty: 1 on 01/13/2020 by J Carlos Quinnoes MD at [facility] [employer] [id number] / / Bard Peripheral Vascular [id number] Lifestream 8mm 26mm 80cm Balloon Expandable Low Profile Cover - [id number] Implanted:Qty: 1 on 03/09/2020 by J Carlos Quinones MD at [facility] Peripheral Vascular [id number] / / [id number] [id number] Device Closure Angio-Seal Vip Bondek-Plus Polyglyd L70 Cm Od6 Fr Odsec.035 In Vascular - [id number] Implanted:Qty: 1 on 03/09/2020 by J Carlos Quinones MD at [facility] [employer]ig [employer] [id number] / / Daig [employer]anna [id number] Device Closure Angio-Seal Vip Bondek-Plus Polyglyd L70 Cm Od6 Fr Odsec.035 In Vascular - [id number] Implanted:Qty: 1 on 03/09/2020 by J Carlos Quinones MD at [facility] [employer] [id number] / / [employer] Card Vasc Surgery 3.5 X 15mm [place] [employer] Coronary Stent [id number] - [id number] Implanted:Qty: 1 on 2023 by J Carlos Quinones MD at [facility] Vasc Surgery 01/21/2026 [id number] / / [id number] [employer] [facility] Device Vascular Closure Femoral Artery Bioabsorbable Dual Method Vascade 6-7fr Collagen [id number] - [id number] Implanted:Qty: 1 on 2023 by J Carlos Quinones MD at [facility] 12/24/2024 [id number] / / [id number] [employer] Device Clsr Perclose Prostyle Sut-Mediatd Closure-Repair Sys 26643-24 - [id number] Implanted:Qty: 1 on 09/25/2023 by J Carlos Quinones MD at [facility] [employer] 06/01/2025 [id number] / / [id number] [employer] Device Clsr Perclose Prostyle Sut-Mediatd Closure-Repair Sys 84908-16 - [id number] Implanted:Qty: 1 on 09/25/2023 by J Carlos Quinones MD at [facility] [employer] 07/02/2025 [id number] / / [id number] [employer] [facility] Device Closure Vascade Od5 Fr Femoral Artery [id number] - [id number] Implanted:Qty: 1 on 09/25/2023 by J Carlos Quinones MD at [facility] 04/28/2025 [id number] / / [id number] [employer] Valve Aortic Trnscath August 3 Ultra Resilia 26mm [id number] - [id number] - [id number] Implanted:Qty: 1 on 09/25/2023 by J Carlos Quinones MD at [facility] 10/30/2025 [id number] / [id number] / Procedures Procedure Name Priority Date/Time Associated Diagnosis Comments LIPID PANEL Routine 06/16/2024 11:[address] OFFICE ASSISTANT EGFR Routine 09/26/2023 5:36 AM CDT HEMOGLOBIN A1C Routine 05/02/2020 9:[address] OFFICE ASSISTANT from Last 3 Months or Most Recently Relevant to Health Maintenance Results * Lipid panel (06/16/2024 11:[address] OFFICE ASSISTANT) SCRIBED Cholesterol, Total 102 <100 - <100 [...] CDT 09/26/2023 5:48 AM CDT J Carlos Quinones MD LAB BLOOD ORDERABLES Final Resul t Performing Organization Address [facility] de Phone Number [facility] [address] Department [place] [address] * (ABNORMAL) Hemoglobin A1c (05/02/2020 9:[address] OFFICE ASSISTANT) Hgb A1C 6.8(H) 4.0 - 5.6 % [facility] Estimated Average Glucose 148 mg/dL [facility] Comment: The ADA recommends reporting an estimated Average Glucose (eAG) with all Hemoglobin A1c results using the equation derived from a study of 507 normal and diabetic adults. Minority populations were underrepresented and children were not included. (Diabetes Care 31:6657-0490, 2008). The eAG is not equivalent to a fasting glucose. Blood specimen (specimen) 05/02/2020 9:[address] OFFICE ASSISTANT 05/02/2020 10:[address] OFFICE ASSISTANT us Alexx Bustamante MD LAB BLOOD ORDERABLES Final R esult Performing Organization Address [facility] Co de Phone Number [facility] Department [place] [address] from Last 3 Months or Most Recently Relevant to Health Maintenance Insurance [facility] * Guarantor: Laurent Delgado Account Type Relation to Patient Date of Phone Billing Address Personal/Family Self 1955 [address] [place] [address] [facility] CHOICE PLUS [facility]ICARE [facility] * Guarantor: Laurent Delgado Account Type Relation to Patient Date of Phone Billing Address Personal/Family Self 1955 [address] [place] [address] [facility] Advance Directives For more information, please contact: [phone] * Full Code (Latest Code Status on File) Date Activated Date Inactivated Comments 05/01/2020 7:33 PM 05/03/2020 10:49 PM Care Teams Residential Mental Health Worker Relationship Specialty Start Date End Date Michele Harp MD PCP - General 06/04/13
[2024-10-11 10:05] LABS: Anion Gap 11 mmol/L (4-12); Blood Urea Nitrogen 16 mg/dL (9-20); Carbon Dioxide 29 mmol/L (22-30); Chloride 105 mmol/L (98-107); Estimated Glomerular Filt Rate > 60; Glucose 121 mg/dL (65-110); Potassium 3.9 mmol/L (3.4-5.0); Sodium 145 mmol/L (137-145)
== END 2024-10-11 08:24 | disposition home or self-care (01) ==
LOC: ANHSURGERY 08:25
PROVIDERS: Anesthesiology; PCP Family Medicine; Visit Provider Plastic Surgery
DX: E11.65 Type 2 diabetes mellitus with hyperglycemia (principal)
CPT/HCPCS: 36415; 80048

== ENCOUNTER 2024-10-20 00:32 | Day surgery (SDC) | payer MEDICARE, SELFPAY ==
--- NOTE | 2024-10-07 08:28 | PC.NURSE ---
Addendum entered by Jacy Flores RN 10/08/24 11:38: No food after midnight. May have up to 20 oz of clear liquids (water, clear soda, apple juice) between midnight and 5am. Original Note: Report to the Outpatient Waiting Room, entrance under the green pavilion located off [facility], at time __11 AM on date __10/20/24 . Planned Procedure Time: _1 PM .? Time changes happen often and if your time is changed the preop area will call you the afternoon before. - You and your visitor will be asked to self-screen and do not enter if you have any COVID symptoms. Please call surgeon if you need to reschedule. - A mask is optional within the hospital at this time. NOTHING TO EAT OR DRINK 8 HOURS PRIOR TO SURGERY PER DR BOB ( 9AM ) Take only the following medications with a SIP of water on the morning of surgery: ISOSORBIDE,METOPROLOL, DO NOT STOP ANY OF YOUR OTHER PRESCRIPTION MEDICATIONS PRIOR TO SURGERY EXCEPT THE FOLLOWING Hold all vitamins and supplements for 3 days per anesthesiologist.LAST DOSE 10/16/24 Medications to discontinue per physician ___PT STATES HOLD PLAVIX 5 DAYS PRE OP PER DR LAKE AND HOLD ELIQUIS 4 DAYS PRE OP_PER DR LAKE LAST DOSE PLAVIX 10/14/24 AND ELIQUIS 10/15/24 Please no make-up, nail hebrew, hairspray, perfume, deodorant, or body powder the day of surgery.? No jewelry (including any body piercings) or valuables the day of surgery, leave them at home.? Please take a shower or bath the night before, or the morning of, surgery with an antibacterial soap.? Wear comfortable, loose fitting clothing.? Children are encouraged to wear pajamas. - Jewelry must be removed prior to entering the operating room.? Rings and piercings that are not removed may be cut off. - The hospital will not accept responsibility for valuables.? - Please leave all valuables, including medications, at home the day of surgery. If you are going home after surgery, a licensed class b truck driver must drive you home.? - NO public transportation without another adult if you receive anesthesia. - We recommend that an adult stay with you for 24 hours following discharge. - We also recommend that you do not drive, make important decision, drink alcoholic beverages, or take any drugs that were not prescribed by your health care provider for at least 24 hours after your discharge time. Follow any additional instructions given to you from your surgeon. Telephone instructions given to __PATIENT and asked if any additional questions and then verbalized understanding. Patient advised to call surgeon office or pre surgery nurse liaison [phone] if any additional questions.
[2024-10-07 08:58] VITALS: BMI 37.9
--- OUTSIDE RECORDS SUMMARY | 2024-10-20 00:36 | XMS_ITS | Clinical Summary ---
Author Organization [facility] [address] Address [address] [place] [address] Care Team Providers Care Cap And Stud Machine Operator Name Role Phone Michele Harp MD Primary Care Provider [phone] Allergies No known active allergies Medications blood [...] 05/01/2020 Assessment & Plan (05/03/2020 9:44 AM ORDER ENTRY TECHNICIAN): - He presented with malaise, cough, shortness of breath. Symptoms began approximately on 2020. Vital signs on admission hypoxemia. A CXR obtained on admission showed bilateral infiltrates. - COVID-19 RNA PCR was sent on April 20, 2020 at [facility].. The patient's testing for COVID-19 is POSITIVE. [...] decide Assessment & Plan (05/02/2020 9:46 AM ORDER ENTRY TECHNICIAN): - He presented with malaise, cough, shortness of breath. Symptoms began approximately on 2020. Vital signs on admission hypoxemia. A CXR obtained on admission showed bilateral infiltrates. - COVID-19 RNA PCR was sent on April 20, 2020 at [facility] in [facility].. The patient's testing for COVID-19 is [...] treatment. Assessment & Plan (05/01/2020 6:15 PM ORDER ENTRY TECHNICIAN): - He presented with malaise, cough, shortness of breath. Symptoms began approximately on 2020. Vital signs on admission hypoxemia. A CXR obtained on admission showed bilateral infiltrates. - COVID-19 RNA PCR was sent on April 20, 2020 at [facility] in [facility].. The patient's testing for COVID-19 is [...] 2019 Assessment & Plan (05/03/2020 9:45 AM ORDER ENTRY TECHNICIAN): This seems to be improved. I have asked the pulmonary rehab team to evaluate the patient to see if he might need oxygen at discharge - possible discharge later today or tomorrow Assessment & Plan (05/02/2020 9:46 AM ORDER ENTRY TECHNICIAN): I will treat the patient with oxygen to maintain adequate oxygenation and treat his other issues as per below. Assessment & Plan (05/01/2020 6:15 PM ORDER ENTRY TECHNICIAN): I will treat the patient with oxygen to maintain adequate oxygenation and treat his other issues as per below. DM2 (diabetes mellitus, type 2) 05/01/2020 Assessment & Plan (05/03/2020 9:43 AM ORDER ENTRY TECHNICIAN): Doing well on current Lantus at night and NPH with dexamethasone - likely continue this at discharge Assessment & Plan (05/02/2020 9:46 AM ORDER ENTRY TECHNICIAN): Lantus reduced to 40 units last night - will give NPH with dexamethasone today and follow sugars Assessment & Plan (05/01/2020 6:12 PM ORDER ENTRY TECHNICIAN): As per history of present illness, patient [...] 04/05/2020 Assessment & Plan (05/03/2020 9:44 AM ORDER ENTRY TECHNICIAN): Continue apixaban, BB Chronic anticoagulation 04/05/2020 Aortic stenosis 02/01/2020 Claudication in peripheral vascular disease ([facility]) 02/01/2020 PAD (peripheral artery disease) 01/04/2020 Overview (01/04/2020): Added automatically from request for surgery [id number] Assessment & Plan (05/03/2020 9:42 AM ORDER ENTRY TECHNICIAN): I will continue patient's clopidogrel and statin therapy Assessment & Plan (05/02/2020 9:45 AM ORDER ENTRY TECHNICIAN): I will continue patient's clopidogrel and statin therapy Assessment & Plan (05/01/2020 6:11 PM ORDER ENTRY TECHNICIAN): I will continue patient's clopidogrel and statin therapy Systolic murmur 07/05/2019 Class 2 severe obesity due t o excess calories with serious comorbidity and body mass index (BMI) of 39.0 to 39.9 in adult 09/24/2017 Assessment & Plan (05/02/2020 9:46 AM ORDER ENTRY TECHNICIAN): This raises patient's complication risk related to COVID-19 Assessment & Plan (05/01/2020 6:14 PM ORDER ENTRY TECHNICIAN): This raises patient's complication risk related to COVID-19 Coronary artery disease of n ative artery of [place] heart with stable angina pectoris ([facility]) 03/18/2017 Hx of CABG 03/18/2017 Hypertension associated with diabetes 03/18/2017 S/P coronary artery stent placement 03/18/2017 Obesity with body mass index 30 or greater 02/14 Overview (09/06/2016): Obesity (BMI 35.0-39.9 without comorbidity) Mixed diabetic hyperlipidemi a associated with type 2 diabetes mellitus ([facility]) 12/11/2015 Overview (09/06/2016): DM type 2 with diabetic dyslipidemia Assessment & Plan (05/03/2020 9:42 AM ORDER ENTRY TECHNICIAN): Continue statin therapy Assessment & Plan (05/02/2020 9:45 AM ORDER ENTRY TECHNICIAN): Continue statin therapy Assessment & Plan (05/01/2020 6:11 PM ORDER ENTRY TECHNICIAN): Continue statin therapy Exercise-induced angina 03/01/2015 Overview (09/06/2016): Angina of effort ROYER on CPAP 03/01/2015 Overview (09/06/2016): ROYER on CPAP Assessment & Plan (05/03/2020 9:42 AM ORDER ENTRY TECHNICIAN): - continue CPAP at night Assessment & Plan (05/02/2020 9:45 AM ORDER ENTRY TECHNICIAN): While normally we avoid CPAP in the setting of COVID-19 infection in the hospital, patient tells me that he becomes quite short of breath and has significant apnea without it - continue CPAP at night Assessment & Plan (05/01/2020 6:11 PM ORDER ENTRY TECHNICIAN): While normally we avoid CPAP in the [...] 12/07/2021 Assessment & Plan (05/03/2020 9:44 AM ORDER ENTRY TECHNICIAN): I will continue patient's Plavix, statin, and beta-elan therapy. Assessment & Plan (05/02/2020 9:46 AM ORDER ENTRY TECHNICIAN): I will continue patient's Plavix, statin, and beta-elan therapy. Assessment & Plan (05/01/2020 6:15 PM ORDER ENTRY TECHNICIAN): I will continue patient's Plavix, statin, and beta-elan therapy. Encounters Date Type Department Care Team Description 10/06/2024 Telephone [facility] Medical Group Cardiology [address] [place] [address] J Carlos Quinones MD from [...] on file Legal Sex Male 2:06 AM ORDER ENTRY TECHNICIAN Gender Identity Not on file Sexual Orientation Not on file Obstetrics History Last Filed Vital Signs Vital Sign Reading Time Taken Comments Blood Pressure 126/58 06/16/2024 9:47 AM ORDER ENTRY TECHNICIAN Pulse 70 06/16/2024 9:47 AM ORDER ENTRY TECHNICIAN Temperature 36.7 C (98.1 F) 09/26/2023 1:09 PM CDT Respiratory Rate 20 09/26/2023 1:09 PM CDT Oxygen Saturation 97% 06/16/2024 9:47 AM ORDER ENTRY TECHNICIAN Inhaled Oxygen Concentration - - Weight 106.1 kg (234 lb) 06/16/2024 9:47 AM ORDER ENTRY TECHNICIAN Height 167.6 cm (5' 6 ) 06/16/2024 9:47 AM ORDER ENTRY TECHNICIAN Body Mass Index 37.77 06/16/2024 9:47 AM ORDER ENTRY TECHNICIAN Plan of Treatment Health Maintenance Due Date [...] 11/05/2022, 09/02/2022 Medical Devices Implanted Type Area Supervisor Roving Department Device Identifier Shelf Expiration Date Model / Serial / Lot [place] [employer] [id number] Synergy 3mm 20mm 144cm Radiopaque 1 Access Port Inflation Lumen - [id number] Implanted:Qty: 1 on 01/13/2020 by J Carlos Quinones MD at [facility] [employer] [id number] / / [employer]sel [id number] Synergy 3.5mm 24mm 144cm Radiopaque 1 Access Port Inflation Lumen - [id number] Implanted:Qty: 1 on 01/13/2020 by J Carlos Quinones MD at [facility] [place] [employer] [id number] / / Happiest [employer]s [id number] Device Closure Angio-Seal Vip Bondek-Plus Polyglyd L70 Cm Od6 Fr Odsec.035 In Vascular - [id number] Implanted:Qty: 1 on 01/13/2020 by J Carlos Quinones MD at [facility] Daig Johanna[employer] [id number] / / Bard Peripheral Vascular [id number] Lifestream 8mm 26mm 80cm Balloon Expandable Low Profile Cover - [id number] Implanted:Qty: 1 on 03/09/2020 by J Carlos Quinones MD at [facility] Peripheral Vascular [id number] / / Daig Johanna [id number] Device Closure Angio-Seal Vip Bondek-Plus Polyglyd L70 Cm Od6 Fr Odsec.035 In Vascular - [id number] Implanted:Qty: 1 on 03/09/2020 by J Carlos Quinones MD at [facility] [employer] [id number] / / Daig Johanna [id number] Device Closure Angio-Seal Vip Bondek-Plus Polyglyd L70 Cm Od6 Fr Odsec.035 In Vascular - [id number] Implanted:Qty: 1 on 03/09/2020 by J Carlos Quinones MD at [facility] [id number] / / Medtronic Card Vasc Surgery 3.5 X 15mm Norphlet [place] Rx Coronary Stent [id number] - [id number] Implanted:Qty: 1 on 2023 [facility] 01/21/2026 [id number] / / [id number] Cardiva Medical [facility] Device Vascular Closure Femoral Artery Bioabsorbable Dual Method Vascade 6-7fr Collagen [id number] - [id number] Implanted:Qty: 1 on 2023 by J Carlos Quinones MD at [facility] Medical [facility] 12/24/2024 [id number] [id number] / / [id number] Olivas Vascular Device Clsr Perclose Prostyle Sut-Mediatd Closure-Repair Sys 19344-84 - [id number] Implanted:Qty: 1 on 09/25/2023 by J Carlos Quinones MD at [facility] Vascular 06/01/2025 [id number] / / [id number] Olivas Vascular Device Clsr Perclose Prostyle Sut-Mediatd Closure-Repair Sys 20593-99 - [id number] Implanted:Qty: 1 on 09/25/2023 by J Carlos Quinones MD at [facility] Vascular 07/02/2025 [id number] / / [id number] Cardisc Medical [facility] Device Closure Vascade Od5 Fr Femoral Artery [id number] - [id number] Implanted:Qty: 1 on 09/25/2023 by J Carlos Quinones MD at [facility] Medical [facility] 04/28/2025 [id number] [id number] / / [id number] [employer] Lifesciences Valve Aortic Trnscath August 3 Ultra Resilia 26mm [id number] - [id number] - [id number] Implanted:Qty: 1 on 09/25/2023 by [facility] 10/30/2025 [id number] / [id number] / Procedures Procedure Name Priority Date/Time Associated Diagnosis Comments LIPID PANEL Routine 06/16/2024 11:29 AM ORDER ENTRY TECHNICIAN EGFR Routine 09/26/2023 5:36 AM CDT HEMOGLOBIN A1C Routine 05/02/2020 9:36 PM ORDER ENTRY TECHNICIAN from Last 3 Months or Most Recently Relevant to Health Maintenance Results * Lipid panel (06/16/2024 11:29 AM ORDER ENTRY TECHNICIAN) SCRIBED Cholesterol, Total 102 <100 - <100 [...] ORDERABLES Final Resul t Performing Organization Address [facility] Co de Phone Number MAME [facility] [address] Department [place] [address] * (ABNORMAL) Hemoglobin A1c (05/02/2020 9:36 PM ORDER ENTRY TECHNICIAN) Hgb A1C 6.8(H) 4.0 - 5.6 % [facility] Estimated Average Glucose 148 mg/dL [facility] Comment: The ADA recommends reporting an estimated Average Glucose (eAG) with all Hemoglobin A1c results using the equation derived from a study of 507 normal and diabetic adults. Minority populations were underrepresented and children were not included. (Diabetes Care 31:6475-1439, 2008). The eAG is not equivalent to a fasting glucose. Blood specimen (specimen) 05/02/2020 9:36 PM ORDER ENTRY TECHNICIAN 05/02/2020 10:30 PM ORDER ENTRY TECHNICIAN us Alexx Bustamante MD LAB BLOOD ORDERABLES Final R esult Performing Organization Address [facility] Co de Phone Number MAME [facility] One [facility] Department [place] [address] from Last 3 Months or Most Recently Relevant to Health Maintenance Insurance MEDICARE [facility] CHOICE PLUS [facility] H[facility]PPO Address: [address] [address] [place] [address] MEDICARE [facility] MEDICARE [facility] Advance Directives For more information, please contact: [phone] * Full Code (Latest Code Status on File) Date Activated Date Inactivated Comments 05/01/2020 7:33 PM 05/03/2020 10:49 PM Care Teams Cap And Stud Machine Operator Relationship Specialty Start Date End Date Michele Harp MD PCP - General 06/04/13
--- OUTSIDE RECORDS SUMMARY | 2024-10-20 00:36 | XMS_ITS | Referral Summary ---
Author Organization [facility] [address] Address [address] [place] [address] Care Team Providers Care Oral Pathologist Name Role Phone Michele Harp MD Primary Care Provider [phone] Encounters Date Type Department Care Team Description 10/06/2024 Telephone [facility] Medical Group Cardiology [address] [place] [address] J Carlos Quinones MD from [...] 05/01/2020 Assessment & Plan (05/03/2020 9:44 AM CABLE TELEVISION INSTALLER): - He presented with malaise, cough, shortness of breath. Symptoms began approximately on 2020. Vital signs on admission hypoxemia. A CXR obtained on admission showed bilateral infiltrates. - COVID-19 RNA PCR was sent on April 20, 2020 at [facility].. The patient's testing for COVID-19 is [...] decide Assessment & Plan (05/02/2020 9:46 AM CABLE TELEVISION INSTALLER): - He presented with malaise, cough, shortness of breath. Symptoms began approximately on 2020. Vital signs on admission hypoxemia. A CXR obtained on admission showed bilateral infiltrates. - COVID-19 RNA PCR was sent on April 20, 2020 at [facility].. The patient's testing for COVID-19 is [...] treatment. Assessment & Plan (05/01/2020 6:15 PM CABLE TELEVISION INSTALLER): - He presented with malaise, cough, shortness of breath. Symptoms began approximately on 2020. Vital signs on admission hypoxemia. A CXR obtained on admission showed bilateral infiltrates. - COVID-19 RNA PCR was sent on April 20, 2020 at [facility] in [facility].. The patient's testing for COVID-19 [...] 2019 Assessment & Plan (05/03/2020 9:45 AM CABLE TELEVISION INSTALLER): This seems to be improved. I have asked the pulmonary rehab team to evaluate the patient to see if he might need oxygen at discharge - possible discharge later today or tomorrow Assessment & Plan (05/02/2020 9:46 AM CABLE TELEVISION INSTALLER): I will treat the patient with oxygen to maintain adequate oxygenation and treat his other issues as per below. Assessment & Plan (05/01/2020 6:15 PM CABLE TELEVISION INSTALLER): I will treat the patient with oxygen to maintain adequate oxygenation and treat his other issues as per below. DM2 (diabetes mellitus, type 2) 05/01/2020 Assessment & Plan (05/03/2020 9:43 AM CABLE TELEVISION INSTALLER): Doing well on current Lantus at night and NPH with dexamethasone - likely continue this at discharge Assessment & Plan (05/02/2020 9:46 AM CABLE TELEVISION INSTALLER): Lantus reduced to 40 units last night - will give NPH with dexamethasone today and follow sugars Assessment & Plan (05/01/2020 6:12 PM CABLE TELEVISION INSTALLER): As per history of present illness, patient [...] 04/05/2020 Assessment & Plan (05/03/2020 9:44 AM CABLE TELEVISION INSTALLER): Continue apixaban, BB Chronic anticoagulation 04/05/2020 Aortic stenosis 02/01/2020 Claudication in peripheral vascular disease ([facility]) 02/01/2020 PAD (peripheral artery disease) 01/04/2020 Overview (01/04/2020): Added automatically from request for surgery [id number] Assessment & Plan (05/03/2020 9:42 AM CABLE TELEVISION INSTALLER): I will continue patient's clopidogrel and statin therapy Assessment & Plan (05/02/2020 9:45 AM CABLE TELEVISION INSTALLER): I will continue patient's clopidogrel and statin therapy Assessment & Plan (05/01/2020 6:11 PM CABLE TELEVISION INSTALLER): I will continue patient's clopidogrel and statin therapy Systolic murmur 07/05/2019 Class 2 severe obesity due t o excess calories with serious comorbidity and body mass index (BMI) of 39.0 to 39.9 in adult 09/24/2017 Assessment & Plan (05/02/2020 9:46 AM CABLE TELEVISION INSTALLER): This raises patient's complication risk related to COVID-19 Assessment & Plan (05/01/2020 6:14 PM CABLE TELEVISION INSTALLER): This raises patient's complication risk related to COVID-19 Coronary artery disease of n ative artery of [place] heart with stable angina pectoris ([facility]) 03/18/2017 Hx of CABG 03/18/2017 Hypertension associated with diabetes 03/18/2017 S/P coronary artery stent placement 03/18/2017 Obesity with body mass index 30 or greater 02/14 Overview (09/06/2016): Obesity (BMI 35.0-39.9 without comorbidity) Mixed diabetic hyperlipidemi a associated with type 2 diabetes mellitus ([facility]) 12/11/2015 Overview (09/06/2016): DM type 2 with diabetic dyslipidemia Assessment & Plan (05/03/2020 9:42 AM CABLE TELEVISION INSTALLER): Continue statin therapy Assessment & Plan (05/02/2020 9:45 AM CABLE TELEVISION INSTALLER): Continue statin therapy Assessment & Plan (05/01/2020 6:11 PM CABLE TELEVISION INSTALLER): Continue statin therapy Exercise-induced angina 03/01/2015 Overview (09/06/2016): Angina of effort ROYER on CPAP 03/01/2015 Overview (09/06/2016): ROYER on CPAP Assessment & Plan (05/03/2020 9:42 AM CABLE TELEVISION INSTALLER): - continue CPAP at night Assessment & Plan (05/02/2020 9:45 AM CABLE TELEVISION INSTALLER): While normally we avoid CPAP in the setting of COVID-19 infection in the hospital, patient tells me that he becomes quite short of breath and has significant apnea without it - continue CPAP at night Assessment & Plan (05/01/2020 6:11 PM CABLE TELEVISION INSTALLER): While normally we avoid CPAP in the [...] 12/07/2021 Assessment & Plan (05/03/2020 9:44 AM CABLE TELEVISION INSTALLER): I will continue patient's Plavix, statin, and beta-elan therapy. Assessment & Plan (05/02/2020 9:46 AM CABLE TELEVISION INSTALLER): I will continue patient's Plavix, statin, and beta-elan therapy. Assessment & Plan (05/01/2020 6:15 PM CABLE TELEVISION INSTALLER): I will continue patient's Plavix, statin, and [...] on file Legal Sex Male 2:06 AM CABLE TELEVISION INSTALLER Gender Identity Not on file Sexual Orientation Not on file Last Filed Vital Signs Vital Sign Reading Time Taken Comments Blood Pressure 126/58 06/16/2024 9:47 AM CABLE TELEVISION INSTALLER Pulse 70 06/16/2024 9:47 AM CABLE TELEVISION INSTALLER Temperature 36.7 C (98.1 F) 09/26/2023 1:09 PM CDT Respiratory Rate 20 09/26/2023 1:09 PM CDT Oxygen Saturation 97% 06/16/2024 9:47 AM CABLE TELEVISION INSTALLER Inhaled Oxygen Concentration - - Weight 106.1 kg (234 lb) 06/16/2024 9:47 AM CABLE TELEVISION INSTALLER Height 167.6 cm (5' 6 ) 06/16/2024 9:47 AM CABLE TELEVISION INSTALLER Body Mass Index 37.77 06/16/2024 9:47 AM CABLE TELEVISION INSTALLER Plan of Treatment Not on file Medical Devices Implanted Type Area Still Operator Batch Or Continuous Device Identifier Shelf Expiration Date Model / Serial / Lot [employer] [id number] Synergy 3mm 20mm 144cm Radiopaque 1 Access Port Inflation Lumen - [id number] Implanted:Qty: 1 on 01/13/2020 by J Carlos Quinones MD at [facility] [employer] [id number] / / [employer] [id number] Synergy 3.5mm 24mm 144cm Radiopaque 1 Access Port Inflation Lumen - [id number] Implanted:Qty: 1 on 01/13/2020 by J Carlos Quinones MD at [facility] [employer] [id number] / / [employer] [id number] Device Closure Angio-Seal Vip Bondek-Plus Polyglyd L70 Cm Od6 Fr Odsec.035 In Vascular - [id number] Implanted:Qty: 1 on 01/13/2020 by J Carlos Quinones MD at [facility] Daig Johanna[employer] [id number] / / Bard Peripheral Vascular [id number] Lifestream 8mm 26mm 80cm Balloon Expandable Low Profile Cover - [id number] Implanted:Qty: 1 on 03/09/2020 by J Carlos Quinones MD at [facility] Peripheral Vascular [id number] / / [employer] [id number] Device Closure Angio-Seal Vip Bondek-Plus Polyglyd L70 Cm Od6 Fr Odsec.035 In Vascular - [id number] Implanted:Qty: 1 on 03/09/2020 by J Carlos Quinones MD at [facility] [employer]ig Johanna[employer] [id number] / / Daig Johanna [id number] Device Closure Angio-Seal Vip Bondek-Plus Polyglyd L70 Cm Od6 Fr Odsec.035 In Vascular - [id number] Implanted:Qty: 1 on 03/09/2020 by J Carlos Quinones MD at [facility]/[employer] [id number] / / Medtronic Card Vasc Surgery 3.5 X 15mm [employer] [place] Rx Coronary Stent [id number] - [id number] Implanted:Qty: 1 on 2023 [facility] 01/21/2026 [id number] / / [id number] Cardiva Medical [facility] Device Vascular Closure Femoral Artery Bioabsorbable Dual Method Vascade 6-7fr Collagen [id number] - [id number] Implanted:Qty: 1 on 2023 by J Carlos Quinones MD at [facility] Medical [facility] 12/24/2024 [id number]-0 5U / / [id number] [employer]ivas Vascular Device Clsr Perclose Prostyle Sut-Mediatd Closure-Repair Sys 32854-39 - [id number] Implanted:Qty: 1 on 09/25/2023 by J Carlos Quinones MD at [facility] Vascular 06/01/2025 [id number] / / [id number] [employer] Vascular Device Clsr Perclose Prostyle Sut-Mediatd Closure-Repair Sys 55206-63 - [id number] Implanted:Qty: 1 on 09/25/2023 by J Carlos Quinones MD at [facility] [employer] Vascular 07/02/2025 [id number] / / [id number] [employer]iwv Medical [facility] Device Closure Vascade Od5 Fr Femoral Artery [id number] - [id number] Implanted:Qty: 1 on 09/25/2023 by J Carlos Quinones MD at [facility] Medical [facility] 04/28/2025 700-500DX- 05U / / [id number] Gonzalez [employer] Valve Aortic Trnscath August 3 Ultra Resilia 26mm [id number] - [id number] - [id number] Implanted:Qty: 1 on 09/25/2023 by [facility] 10/30/2025 [id number] / [id number] / Procedures Procedure Name Priority Date/Time Associated Diagnosis Comments LIPID PANEL Routine 06/16/2024 11:29 AM CABLE TELEVISION INSTALLER EGFR Routine 09/26/2023 5:36 AM CDT HEMOGLOBIN A1C Routine 05/02/2020 9:36 PM CABLE TELEVISION INSTALLER from Last 3 Months or Most Recently Relevant to Health Maintenance Results * Lipid panel (06/16/2024 11:29 AM CABLE TELEVISION INSTALLER) SCRIBED Cholesterol, Total 102 <100 - <100 [...] ORDERABLES Final Resul t Performing Organization Address [facility] Co de Phone Number MAME [address] Department [place] [address] * (ABNORMAL) Hemoglobin A1c (05/02/2020 9:36 PM CABLE TELEVISION INSTALLER) Hgb A1C 6.8(H) 4.0 - 5.6 % [facility] Estimated Average Glucose 148 mg/dL [facility] Comment: The ADA recommends reporting an estimated Average Glucose (eAG) with all Hemoglobin A1c results using the equation derived from a study of 507 normal and diabetic adults. Minority populations were underrepresented and children were not included. (Diabetes Care 31:4579-1947, 2008). The eAG is not equivalent to a fasting glucose. Blood specimen (specimen) 05/02/2020 9:36 PM CABLE TELEVISION INSTALLER 05/02/2020 10:30 PM CABLE TELEVISION INSTALLER us Alexx Bustamante MD LAB BLOOD ORDERABLES Final R esult Performing Organization Address [facility] Co de Phone Number MAME [facility] One [facility] Department [place] [address] from Last 3 Months or Most Recently Relevant to Health Maintenance Insurance MEDICARE [facility] CHOICE PLUS MEDICARE [facility] MEDICARE [facility] Advance Directives For more information, please contact: [phone] * Full Code (Latest Code Status on File) Date Activated Date Inactivated Comments 05/01/2020 7:33 PM 05/03/2020 10:49 PM Care Teams Oral Pathologist Relationship Specialty Start Date End Date Michele Harp MD PCP - General 06/04/13
--- NOTE | 2024-10-20 06:53 | P.OP_ITS ---
Procedure Note - Detailed Date of Procedure 10/20/24 Pre-op Diagnosis right carpal tunnel syndrome Post-op Diagnosis Same Procedure Performed right ectr Surgeon Nathalie Delarosa MD Ornament Maker Hand britt nunez pa-c Anesthesia MAC Description of Procedure INFORMED CONSENT: The patient was seen and examined and marked in the pre-op area.? The patient signed the consent form. PROCEDURE IN DETAIL:The patient taken back to OR on the stretcher in supine position. Time out performed with anesthesia, surgeon and staff agreeing on patient's name site and surgery to be performed SCDs were placed on the lower extremities and inflated. A tourniquet was placed on {right} upper extremity and antibiotics given IV After anesthesia administered sedation I injected {4}cc 1%lido with epi and 0.5% marcaine plain at the operative site The?{right upper extremity/left upper extremity}?was prepped and draped in sterile fashion the??{right upper extremity/left upper extremity} was? exsanguinated with Esmarch bandage and tourniquet inflated to 250mmHg I made a transverse incision in the {right} volar distal wrist crease through skin and dermis with 15 blade scalpel.? Littler scissors spread down to antebrachial fascia. A small incision was made in antebrachial fascia allowing access to Carpal tunnel. I proceeded with sequential dilation staying in line with the ring finger and hugging the hook of the hamate.? I then used the synovial elevator to free any adhesions from the underside of the transverse carpal ligament. Next I was able to insert the Microaire endoscopic carpal tunnel device with direct visualization of the transverse fibers on the monitor and proceeded with complete segmental retrograde release of the ligament in its entirety.? I irrigated with normal saline and closed with 4-0 monocryl for dermis and subcuticular closure. A dressing of Dermabond, 4x4, cody, and a volar splint was applied for patient safety, security, and comfort and secured with an marysol bandage after the tourniquet was let down noting the hand was warm and well perfused. The patient was then awaken from anesthesia and transferred to the recovery room in stable condition.? Complications - none EBL- 0cc Disposition - home in stable condition Britt Nunez PA-C was essential for positioning retraction, closure and dressing placement [facility] Billing Surgery - Charge Forward: Surgery Billing ([id number] same for britt roy )
--- NOTE | 2024-10-20 06:53 | WPDHPUPDATE1 ---
History and Physical Update Update Date/Time: 10/20/24 06:53 Patient seen and examined in pre-operative holding area. No interval change in medical history or symptoms. Patient recalls previous discussion of benefits and alternatives to procedure. Continues to desire to proceed with right endoscopic possible open carpal tunnel release. Reviewed procedure, post-op expectations and risks including but not limited to bleeding, infection, injury to tendon/nerve/vessel, decreased hand function, stiffness, RSD, no change or worsening of symptoms. I discussed the possible use of assistants and their participation in the case. Patient stated understanding and signed the consent form wishing to proceed.
[2024-10-20 10:05] VITALS: BP 141/74; PULSE 61; RESP 14; TEMP 36.1; O2SAT 96
[2024-10-20 10:40] LABS: Glucose Point of Care 114 mg/dl (65-105)
[2024-10-20 10:47] VITALS: BMI 36.5
--- NOTE | 2024-10-20 10:50 | WPDANESEPPF ---
Anes - Initial Pre Proc Eval Procedure: Operation Date: 10/20/24 12:00 Proposed Procedures p Right Endoscopic Carpal Tunnel Release, Possible Open - Nathalie Delarosa MD Date/Time: 10/20/24 10:50 Surgeon: Nathalie Delarosa MD Pre Op Diagnosis: right carpal tunnel syndrome Patient Data Age: 69 Gender: M Height: 1.68 m Weight: 102.6 kg Last Vital Signs Temp 36.1 C L 10/20/24 10:05 Pulse 61 10/20/24 10:05 Resp 14 10/20/24 10:05 BP 141/74 H 10/20/24 10:05 Pulse Ox 96 10/20/24 10:05 O2 Del Method Room Air 10/20/24 10:05 Allergies Allergy/AdvReac Type Severity Reaction Status Date / Time No Known Allergies Allergy Verified 10/20/24 10:43 Home Medications ?Medication ?Instructions ?Recorded ?Confirmed ?Type clopidogrel 75 mg tablet 75 mg PO DAILY 01/04/20 10/20/24 History furosemide 40 mg tablet 40 mg PO DAILY 01/04/20 10/07/24 History icosapent ethyl 1 gram capsule 2 g PO BID 01/04/20 10/07/24 History (Vascepa) nitroglycerin 0.4 mg sublingual 0.4 mg sublingual Q5M PRN Chest 01/04/20 10/07/24 History tablet (Nitrostat) Pain rosuvastatin 40 mg tablet (Crestor) 40 mg PO DAILY 01/04/20 10/07/24 History alpha lipoic acid 200 mg capsule 200 mg PO TID 05/17/20 10/07/24 History metoprolol tartrate 25 mg tablet 50 mg PO BID 06/11/20 10/07/24 History apixaban 5 mg tablet (Eliquis) 5 mg PO Q12HR #60 tabs 06/12/20 10/20/24 Rx metformin 500 mg tablet 1,000 mg (2 x 500 mg) PO BID #180 04/01/24 10/07/24 Rx tabs pen needle, diabetic 31 gauge x #1,200 ea 05/12/24 09/15/24 Rx 5/16 (Easy Comfort Pen [place]) pantoprazole 40 mg tablet,delayed See Rx Instructions .Route 05/31/24 10/07/24 Rx release .COMPLEX #180 tabs fluticasone propionate 50 2 spray intranasal DAILY #16 grams 07/02/24 10/07/24 Rx mcg/actuation nasal spray,suspension (Flonase Allergy Relief) isosorbide mononitrate 60 mg 60 mg PO DAILY 07/02/24 10/07/24 History tablet,extended release 24 hr glimepiride 4 mg tablet 4 mg PO BID #180 tabs 07/14/24 10/07/24 Rx insulin glargine 100 unit/mL (3 See Rx Instructions .Route 08/11/24 10/07/24 Rx mL) subcutaneous pen (Lantus .COMPLEX #60 mL Solostar U-100 Insulin) tirzepatide 10 mg/0.5 mL See Rx Instructions .Route 08/13/24 10/07/24 Rx subcutaneous pen injector .COMPLEX #6 mL (Mounjaro) lisinopril 40 mg tablet 20 mg PO DAILY 09/15/24 10/07/24 History fexofenadine 60 mg tablet (Leann 60 mg PO DAILY 10/07/24 10/07/24 History Allergy) magnesium 200 mg tablet 400 mg PO EVERY OTHER DAY 10/07/24 10/07/24 History multivitamin (Daily Value tablet) 1 tablet PO DAILY 10/07/24 10/07/24 History potassium 99 mg tablet 99 mg PO EVERY OTHER DAY 10/07/24 10/07/24 History Laboratory Tests 10/20/24 10:36 POC Capillary Glucose 114 H mg/dl (65-105) Patient hx anesthesia problems: none Family hx anesthesia problems: none Results Review: All pre-operative results and documents have been reviewed as part of the pre-operative evaluation. [facility] Past Medical History Medical History Colon cancer screening Essential hypertension Obstructive sleep apnea on CPAP Congestive heart failure Peripheral vascular disease Coronary artery disease Gastroesophageal reflux disease Insulin dependent type 2 diabetes mellitus Left ventricular hypertrophy COVID-19 (~04/2020) Aortic regurgitation Aortic stenosis Mixed hyperlipidemia Surgical History Surgical History S/P insertion of iliac artery stent S/P TAVR (transcatheter aortic valve replacement) History of vascular surgery Right lower extremity stent. History of cardiac catheterization With several stents, most recent in January 2020. Status post coronary artery bypass grafts x 5 (~04/16/15) Performed at [facility], [place]. Family History Family History Father Patient's father is Mother Alzheimer dementia Other Family history of cardiovascular disease Hypertension Social History Social History Social History: The patient lives in [place] with his . 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 Former smoker. No alcohol or illicit substance abuse. He designates his Aarti as his surrogate decision maker and he wishes to be a full code. Smoking packs per day: 1 Smoking cigarettes per day: 20.0 Years smoked: 7 Smoking pack-years: 7.00 Smoking status: Former smoker Tobacco type: cigarettes Smoking end date: 06/02/79 Substance use type: does not use Lack of Transportation: No Lack of Food: Never True Current Housing: I Have Housing Concerned About Future Housing: No Difficulty Paying Gas/Electric Bills: No Difficulty Paying for Meds: No Currently Unemployed: No Education: High School Diploma/GED Difficulty w/ Childcare or Family Care: No Living arrangements: with family Gender identity (if verbalized by the patient): Male Spiritual care concerns: No Anes - Eval Final PreProcedure Day of Procedure 10/20/24 10:50 Patient weight: obese Heart: regular rate and rhythm Lungs: decreased breath sounds Airway: Mallampati scale class III Neurological: alert and oriented Last oral intake: >/= 8 hours ASA classification: IV Emergent: no Anesthetic plan: proceed Anesthesia type and monitoring: general GIVS and standard monitoring Results Review: All pre-operative results and documents have been reviewed as part of the pre-operative evaluation. Informed Consent: The patient's anesthetic plan and its attendant risks and benefits were discussed with the patient/family/POA. Questions were solicited and answers provided to the satisfaction of the patient/family/POA.
[2024-10-20] MEDS: LIDO 1%/EPINEPHRINE 1:100,000 50 ML VIAL INFILTRATE (11:51)
[2024-10-20] MEDS: ceFAZolin 2 GM/D5W 50 ML 2 GM/50 ML BAG IVPB (11:51)
[2024-10-20 12:11] VITALS: BP 129/69; PULSE 66; RESP 14; O2SAT 98
[2024-10-20 12:33] LABS: Glucose Point of Care 108 mg/dl (65-105)
[2024-10-20 12:40] VITALS: BP 136/61; PULSE 63
[2024-10-20 13:10] VITALS: BP 120/67; PULSE 64
== END 2024-10-20 13:40 | disposition home or self-care (01) ==
PROVIDERS: PCP Family Medicine; Visit Provider Plastic Surgery
PROC: 01N54ZZ Release Median Nerve, Percutaneous Endoscopic Approach (ICD-10-PCS; CPT 29848; principal; 2024-10-20 12:00)
DX: G56.01 Carpal tunnel syndrome, right upper limb (principal); K21.9 Gastro-esophageal reflux disease without esophagitis; E78.2 Mixed hyperlipidemia; G47.33 Obstructive sleep apnea (adult) (pediatric); I11.0 Hypertensive heart disease with heart failure; I50.9 Heart failure, unspecified; I35.1 Nonrheumatic aortic (valve) insufficiency; I35.0 Nonrheumatic aortic (valve) stenosis; I73.9 Peripheral vascular disease, unspecified; E66.9 Obesity, unspecified; Z68.36 Body mass index [BMI] 36.0-36.9, adult; Z79.4 Long term (current) use of insulin; Z79.02 Long term (current) use of antithrombotics/antiplatelets; Z79.01 Long term (current) use of anticoagulants; Z79.84 Long term (current) use of oral hypoglycemic drugs; Z79.85 Long-term (current) use of injectable non-insulin antidiabetic drugs; Z98.890 Other specified postprocedural states; Z95.5 Presence of coronary angioplasty implant and graft; Z99.89 Dependence on other enabling machines and devices; Z87.891 Personal history of nicotine dependence; Z86.79 Personal history of other diseases of the circulatory system; Z82.49 Family history of ischemic heart disease and other diseases of the circulatory system
CPT/HCPCS: 29848; 82948; J0690; J2003; J2004; J2405; J2704; J3010

== ENCOUNTER 2024-11-01 07:57 | Outpatient (CLI) | payer MEDICARE, SELFPAY ==
--- OUTSIDE RECORDS SUMMARY | 2024-11-01 08:02 | XMS_ITS | Continuity of Care Document ---
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 It does not include entries that were removed or entered in error. Problem Status Onset Date Problem Type Date of Resolution Comments Source Exposure to potentially hazardous substance Active Condition Jun 11, 2023 Entered By: ANILA CEVALLOS I Comment: Ganesh Galvan [facility] Diagnosis: ICD-10-CM Z77.29 Contact with and exposure to other hazardous substances Active Diagnosis [facility] Results Combined list of recent chemistry, hematology [...] Jun 11, 2023 10:10 AM Reporting Lab: [facility] [place] [address] Performing Lab: [facility] DIVISION CBC ERYTHROCYT ES [#/VOLUME] IN BLOOD BY AUTOMATED COUNT 4.72 10*6/uL 4.10 - 5.70 06/11 Specimen Type: BLOOD No comment entered. Ordering Provider: ROSA CEVALLOS I Report Released Date/Time: Jun 11, 2023 10:10 AM Reporting Lab: [facility] [place] [address] Performing Lab: [facility] DIVISION CBC HEMOGLOBIN [MASS/VOLU ME] IN BLOOD 13.1 g/dL 13.1 - 16.8 06/11 Specimen Type: BLOOD No comment entered. Ordering Provider: ROSA CEVALLOS I Report Released Date/Time: Jun 11, 2023 10:10 AM Reporting Lab: [facility] [place] [address] Performing Lab: [facility] CBC HEMATOCRIT [VOLUME FRACTION] OF BLOOD 38.6 38.2 - 48.4 06/11 Specimen Type: BLOOD No comment entered. Ordering Provider: ROSA CEVALLOS I Report Released Date/Time: Jun 11, 2023 10:10 AM Reporting Lab: [facility] [place] [address] Performing Lab: [facility] [address] CBC MCV [ENTITIC VOLUME] BY AUTOMATED COUNT 81.8 fL 80.0 - 100.0 06/11 Specimen Type: BLOOD No comment entered. Ordering Provider: ROSA CEVALLOS I Report Released Date/Time: Jun 11, 2023 10:10 AM Reporting Lab: [facility] [place] [address] Performing Lab: [facility] [address] CBC MCH [ENTITIC MASS] BY AUTOMATED COUNT 27.8 pg 27.0 - 34.0 06/11 Specimen Type: BLOOD No comment entered. Ordering Provider: ROSA CEVALLOS I Report Released Date/Time: Jun 11, 2023 10:10 AM Reporting Lab: [facility] [place] [address] Performing Lab: [facility] CBC MCHC [MASS/VOLU ME] BY AUTOMATED COUNT 33.9 g/dL 33.0 - 36.0 06/11 Specimen Type: BLOOD No comment entered. Ordering Provider: ROSA CEVALLOS I Report Released Date/Time: Jun 11, 2023 10:10 AM Reporting Lab: [facility] [place] [address] Performing Lab: [facility] CBC PLATELETS [#/VOLUME] IN BLOOD BY AUTOMATED COUNT 147 10*3/uL 150 - 400 06/11 L Specimen Type: BLOOD No comment entered. Ordering Provider: ROSA CEVALLOS I Report Released Date/Time: Jun 11, 2023 10:10 AM Reporting Lab: [facility] [place] [address] Performing Lab: [facility] CBC PLATELET MEAN VOLUME [ENTITIC VOLUME] IN BLOOD BY AUTOMATED COUNT 10.8 fL 7.5 - 11.2 06/11 Specimen Type: BLOOD No comment entered. Ordering Provider: ROSA CEVALLOS I Report Released Date/Time: Jun 11, 2023 10:10 AM Reporting Lab: [facility] [place] [address] Performing Lab: [facility] CBC ERYTHROCYT E DISTRIBUTI ON WIDTH [RATIO] BY AUTOMATED COUNT 14.1 11.8 - 15.1 06/11 Specimen Type: BLOOD No comment entered. Ordering Provider: ROSA CEVALLOS I Report Released Date/Time: Jun 11, 2023 10:10 AM Reporting Lab: [facility] [place] [address] Performing Lab: [facility] DIVISION CBC LYMPHOCYTE S/100 LEUKOCYTES IN BLOOD BY AUTOMATED COUNT 28 06/11 Specimen Type: BLOOD No comment entered. Ordering Provider: ROSA CEVALLOS I Report Released Date/Time: Jun 11, 2023 10:10 AM Reporting Lab: [facility]1 [place] [address] Performing Lab: [facility] DIVISION CBC MONOCYTES/ 100 LEUKOCYTES IN BLOOD BY AUTOMATED COUNT 7 06/11 Specimen Type: BLOOD No comment entered. Ordering Provider: ROSA CEVALLOS I Report Released Date/Time: Jun 11, 2023 10:10 AM Reporting Lab: [facility] [place] [address] Performing Lab: [facility] DIVISION CBC NEUTROPHIL S/100 LEUKOCYTES IN BLOOD BY AUTOMATED COUNT 62 06/11 Specimen Type: BLOOD No comment entered. Ordering Provider: ROSA CEVALLOS I Report Released Date/Time: Jun 11, 2023 10:10 AM Reporting Lab: [facility] [place] [address] Performing Lab: [facility] DIVISION CBC EOSINOPHIL S/100 LEUKOCYTES IN BLOOD BY AUTOMATED COUNT 3 06/11 Specimen Type: BLOOD No comment entered. Ordering Provider: ROSA CEVALLOS I Report Released Date/Time: Jun 11, 2023 10:10 AM Reporting Lab: [facility] [place] [address] Performing Lab: [facility] DIVISION CBC BASOPHILS/ 100 LEUKOCYTES IN BLOOD BY AUTOMATED COUNT 0 06/11 Specimen Type: BLOOD No comment entered. Ordering Provider: ROSA CEVALLOS I Report Released Date/Time: Jun 11, 2023 10:10 AM Reporting Lab: [facility] [place] [address] Performing Lab: [facility] DIVISION CBC LYMPHOCYTE S [#/VOLUME] IN BLOOD BY AUTOMATED COUNT 1.60 10*3/uL 0.77 - 4.50 06/11 Specimen Type: BLOOD No comment entered. Ordering Provider: ROSA CEVALLOS I Report Released Date/Time: Jun 11, 2023 10:10 AM Reporting Lab: [facility] [place] [address] Performing Lab: [facility] DIVISION CBC MONOCYTES [#/VOLUME] IN BLOOD BY AUTOMATED COUNT 0.38 10*3/uL 0.19 - 0.80 06/11 Specimen Type: BLOOD No comment entered. Ordering Provider: ROSA CEVALLOS I Report Released Date/Time: Jun 11, 2023 10:10 AM Reporting Lab: [facility]1 [place] [address] Performing Lab: [facility] DIVISION CBC NEUTROPHIL S [#/VOLUME] IN BLOOD BY AUTOMATED COUNT 3.54 10*3/uL 2.10 - 8.00 06/11 Specimen Type: BLOOD No comment entered. Ordering Provider: ROSA CEVALLOS I Report Released Date/Time: Jun 11, 2023 10:10 AM Reporting Lab: [facility] [place] [address] Performing Lab: [facility] DIVISION CBC EOSINOPHIL S [#/VOLUME] IN BLOOD BY AUTOMATED COUNT 0.16 10*3/uL 0.00 - 0.60 06/11 Specimen Type: BLOOD No comment entered. Ordering Provider: ROSA CEVALLOS I Report Released Date/Time: Jun 11, 2023 10:10 AM Reporting Lab: [facility] [place] [address] Performing Lab: [facility] DIVISION CBC BASOPHILS [#/VOLUME] IN BLOOD BY AUTOMATED COUNT 0.02 10*3/uL 0.00 - 0.20 06/11 Specimen Type: BLOOD No comment entered. Ordering Provider: ROSA CEVALLOS I Report Released Date/Time: Jun 11, 2023 10:10 AM Reporting Lab: [facility] [place] [address] Performing Lab: [facility] CBC PLATELETS RETICULATE D/100 PLATELETS IN BLOOD BY AUTOMATED COUNT 5.4 1.0 - 7.0 06/11 Specimen Type: BLOOD No comment entered. Ordering Provider: ROSA CEVALLOS I Report Released Date/Time: Jun 11, 2023 10:10 AM Reporting Lab: [facility] [place] [address] Performing Lab: [facility] DIVISION COMPREHE NSIVE METABOLI C PANEL CREATININE [MASS/VOLU ME] IN SERUM OR PLASMA 0.90 mg/dL 0.70 - 1.30 06/11 Specimen Type: PLASMA Comment: No hemolysis noted. Ordering Provider: ROSA CEVALLOS I Report Released Date/Time: Jun 11, 2023 10:10 AM Reporting Lab: [facility] [place] [address] Performing Lab: [facility] DIVISION COMPREHE NSIVE METABOLI C PANEL UREA NITROGEN [MASS/VOLU ME] IN SERUM OR PLASMA 12.6 mg/dL 9.0 - 25.0 06/11 Specimen Type: PLASMA Comment: No hemolysis noted. Ordering Provider: ROSA CEVALLOS I Report Released Date/Time: Jun 11, 2023 10:10 AM Reporting Lab: [facility] [place] [address] Performing Lab: [facility] DIVISION COMPREHE NSIVE METABOLI C PANEL GLUCOSE [MASS/VOLU ME] IN SERUM OR PLASMA 154 mg/dL 72 - 99 06/11 H Specimen Type: PLASMA Comment: No hemolysis noted. Ordering Provider: ROSA CEVALLOS I Report Released Date/Time: Jun 11, 2023 10:10 AM Reporting Lab: [facility] [place] [address] Performing Lab: [facility] DIVISION COMPREHE NSIVE METABOLI C PANEL SODIUM [MOLES/VOL UME] IN SERUM OR PLASMA 146 meq/L 136 - 145 06/11 H Specimen Type: PLASMA Comment: No hemolysis noted. Ordering Provider: ROSA CEVALLOS I Report Released Date/Time: Jun 11, 2023 10:10 AM Reporting Lab: [facility] [place] [address] Performing Lab: [facility] DIVISION COMPREHE NSIVE METABOLI C PANEL POTASSIUM [MOLES/VOL UME] IN SERUM OR PLASMA 3.9 meq/L 3.5 - 5.0 06/11 Specimen Type: PLASMA Comment: No hemolysis noted. Ordering Provider: ROSA CEVALLOS I Report Released Date/Time: Jun 11, 2023 10:10 AM Reporting Lab: [facility] [place] [address] Performing Lab: [facility] DIVISION COMPREHE NSIVE METABOLI C PANEL CHLORIDE [MOLES/VOL UME] IN SERUM OR PLASMA 109 meq/L 98 - 107 06/11 H Specimen Type: PLASMA Comment: No hemolysis noted. Ordering Provider: ROSA CEVALLOS I Report Released Date/Time: Jun 11, 2023 10:10 AM Reporting Lab: [facility] [place] [address] Performing Lab: [facility] DIVISION COMPREHE NSIVE METABOLI C PANEL CARBON DIOXIDE, TOTAL [MOLES/VOL UME] IN SERUM OR PLASMA 26 meq/L 22 - 31 06/11 Specimen Type: PLASMA Comment: No hemolysis noted. Ordering Provider: ROSA CEVALLOS I Report Released Date/Time: Jun 11, 2023 10:10 AM Reporting Lab: [facility] [place] [address] Performing Lab: [facility] DIVISION COMPREHE NSIVE METABOLI C PANEL CALCIUM [MASS/VOLU ME] IN SERUM OR PLASMA 8.8 mg/dL 8.4 - 10.4 06/11 Specimen Type: PLASMA Comment: No hemolysis noted. Ordering Provider: ROSA CEVALLOS I Report Released Date/Time: Jun 11, 2023 10:10 AM Reporting Lab: [facility] [place] [address] Performing Lab: [facility] DIVISION COMPREHE NSIVE METABOLI C PANEL PROTEIN [MASS/VOLU ME] IN SERUM OR PLASMA 6.6 g/dL 6.0 - 8.6 06/11 Specimen Type: PLASMA Comment: No hemolysis noted. Ordering Provider: ROSA CEVALLOS I Report Released Date/Time: Jun 11, 2023 10:10 AM Reporting Lab: [facility] [place] [address] Performing Lab: [facility] DIVISION COMPREHE NSIVE METABOLI C PANEL ALBUMIN [MASS/VOLU ME] IN SERUM OR PLASMA 4.0 g/dL 3.4 - 5.0 06/11 Specimen Type: PLASMA Comment: No hemolysis noted. Ordering Provider: ROSA CEVALLOS I Report Released Date/Time: Jun 11, 2023 10:10 AM Reporting Lab: [facility] [place] [address] Performing Lab: [facility] DIVISION COMPREHE NSIVE METABOLI C PANEL BILIRUBIN. TOTAL [MASS/VOLU ME] IN SERUM OR PLASMA 0.4 mg/dL 0.2 - 1.2 06/11 Specimen Type: PLASMA Comment: No hemolysis noted. Ordering Provider: ROSA CEVALLOS I Report Released Date/Time: Jun 11, 2023 10:10 AM Reporting Lab: [facility] [place] [address] Performing Lab: [facility] DIVISION COMPREHE NSIVE METABOLI C PANEL ALKALINE PHOSPHATAS E [ENZYMATIC ACTIVITY/V OLUME] IN SERUM OR PLASMA 42 U/L 40 - 150 06/11 Specimen Type: PLASMA Comment: No hemolysis noted. Ordering Provider: ROSA CEVALLOS I Report Released Date/Time: Jun 11, 2023 10:10 AM Reporting Lab: [facility] [place] [address] Performing Lab: [facility]1 [facility] [id number] DIVISION COMPREHE NSIVE METABOLI C PANEL ASPARTATE AMINOTRANS FERASE [ENZYMATIC ACTIVITY/V OLUME] IN SERUM OR PLASMA 24 U/L 5 - 34 06/11 Specimen Type: PLASMA Comment: No hemolysis noted. Ordering Provider: ROSA CEVALLOS I Report Released Date/Time: Jun 11, 2023 10:10 AM Reporting Lab: [facility] [place] [address] Performing Lab: [facility] DIVISION COMPREHE NSIVE METABOLI C PANEL ALANINE AMINOTRANS FERASE [ENZYMATIC ACTIVITY/V OLUME] IN SERUM OR PLASMA 30 U/L 8 - 40 06/11 Specimen Type: PLASMA Comment: No hemolysis noted. Ordering Provider: ROSA CEVALLOS I Report Released Date/Time: Jun 11, 2023 10:10 AM Reporting Lab: [facility] [place] [address] Performing Lab: [facility] DIVISION COMPREHE NSIVE METABOLI C PANEL GLOMERULAR FILTRATION RATE/1.73 SQ M.PREDICTE D [VOLUME RATE/AREA] IN SERUM, PLASMA OR BLOOD BY CREATININE -BASED FORMULA (CKD-EPI 2020) 93.03 60 06/11 Specimen Type: PLASMA Comment: No hemolysis noted. Ordering Provider: ROSA CEVALLOS I Report Released Date/Time: Jun 11, 2023 10:10 AM Reporting Lab: [facility] [place] [address] Performing Lab: [facility] DIVISION LIPID PANEL (STL) CHOLESTERO L [MASS/VOLU ME] IN SERUM OR PLASMA 120 mg/dL 0 - 200 06/11 Specimen Type: PLASMA Comment: No hemolysis noted. Ordering Provider: ROSA CEVALLOS I Report Released Date/Time: Jun 11, 2023 10:10 AM Reporting Lab: [facility] [place] [address] Performing Lab: [facility] LIPID PANEL (STL) TRIGLYCERI DE [MASS/VOLU ME] IN SERUM OR PLASMA 210 mg/dL 0 - 150 06/11 H Specimen Type: PLASMA Comment: No hemolysis noted. Ordering Provider: ROSA CEVALLOS I Report Released Date/Time: Jun 11, 2023 10:10 AM Reporting Lab: [facility] [place] [address] Performing Lab: [facility] LIPID PANEL (STL) CHOLESTERO L IN LDL [MASS/VOLU ME] IN SERUM OR PLASMA BY CALCULATIO N 55 mg/dL 06/11 Specimen Type: PLASMA Comment: No hemolysis noted. Ordering Provider: ROSA CEVALLOS I Report Released Date/Time: Jun 11, 2023 10:10 AM Reporting Lab: [facility] [place] [address] Performing Lab: [facility] LIPID PANEL (STL) CHOLESTERO L IN HDL [MASS/VOLU ME] IN SERUM OR PLASMA 23 mg/dL 40 06/11 L Specimen Type: PLASMA Comment: No hemolysis noted. Ordering Provider: ROSA CEVALLOS I Report Released Date/Time: Jun 11, 2023 10:10 AM Reporting Lab: [facility] [place] [address] Performing Lab: [facility] [address] DIVISION HGA1C HEMOGLOBIN A1C/HEMOGL OBIN.TOTAL IN BLOOD 7.6 4.0 - 6.0 06/11 H Specimen Type: BLOOD No comment entered. Ordering Provider: ROSA CEVALLOS I Report Released Date/Time: Jun 11, 2023 10:10 AM Reporting Lab: [facility] [place] [address] Performing Lab: [facility] PROST. SPECIFIC AG.(PB-S TL) PROSTATE SPECIFIC [...] Jun 11, 2023 10:10 AM Reporting Lab: [facility] [id number] Performing Lab: [facility] HEP C Ab HCV Ab (STL) HEPATITIS C VIRUS AB [PRESENCE] IN SERUM Nonreact hector 06/11 Specimen Type: SERUM No comment entered. Ordering Provider: ROSA CEVALLOS I Report Released Date/Time: Jun 11, 2023 10:10 AM Reporting Lab: [facility] [address] [facility] [id number] Performing Lab: [facility] [address] [facility] [id number] [facility] Encounters Combined list of: 1) Encounters from Department of [facility] Affairs facilities going backup to the last 18 months, not all [facility] inpatient encounters are included; 2) Encounters from the Department of Defense facilities going backup to 280 months. Location Location Details Encounter Type Encounter Number Reason For Visit Attending Provider ADM Date DC Date Status Disposition Source [facility] OFFICE O/P EST HI 40 MIN [id number] Diagnos is: ICD-10- CM Z77.29 Contact with and exposur e to other hazardo us substan ABIMAEL Paige I 06/11 [facility] N [facility] Outpatient Encounter [id number] 08/12 [facility] N
--- OUTSIDE RECORDS SUMMARY | 2024-11-01 08:03 | XMS_ITS | Clinical Summary ---
Author Organization [facility] [address] Address [address] [place] [address] Care Team Providers Care Regulatory Compliance Manager Name Role Phone Michele Harp MD Primary Care Provider [phone] Allergies No known active allergies Medications blood [...] 05/01/2020 Assessment & Plan (05/03/2020 9:44 AM CAMPUS RECEPTIONIST): - He presented with malaise, cough, shortness [...] decide Assessment & Plan (05/02/2020 9:46 AM CAMPUS RECEPTIONIST): - He presented with malaise, cough, shortness of breath. Symptoms began approximately on 2020. Vital signs on admission hypoxemia. A CXR obtained on admission showed bilateral infiltrates. - COVID-19 RNA PCR was sent on April 20, 2020 at [facility] in [facility].. The patient's testing for COVID-19 is [...] treatment. Assessment & Plan (05/01/2020 6:15 PM CAMPUS RECEPTIONIST): - He presented with malaise, cough, shortness of breath. Symptoms began approximately on 2020. Vital signs on admission hypoxemia. A CXR obtained on admission showed bilateral infiltrates. - COVID-19 RNA PCR was sent on April 20, 2020 at [facility] in [facility].. The patient's testing for COVID-19 is [...] 2019 Assessment & Plan (05/03/2020 9:45 AM CAMPUS RECEPTIONIST): This seems to be improved. I have asked the pulmonary rehab team to evaluate the patient to see if he might need oxygen at discharge - possible discharge later today or tomorrow Assessment & Plan (05/02/2020 9:46 AM CAMPUS RECEPTIONIST): I will treat the patient with oxygen to maintain adequate oxygenation and treat his other issues as per below. Assessment & Plan (05/01/2020 6:15 PM CAMPUS RECEPTIONIST): I will treat the patient with oxygen to maintain adequate oxygenation and treat his other issues as per below. DM2 (diabetes mellitus, type 2) 05/01/2020 Assessment & Plan (05/03/2020 9:43 AM CAMPUS RECEPTIONIST): Doing well on current Lantus at night and NPH with dexamethasone - likely continue this at discharge Assessment & Plan (05/02/2020 9:46 AM CAMPUS RECEPTIONIST): Lantus reduced to 40 units last night - will give NPH with dexamethasone today and follow sugars Assessment & Plan (05/01/2020 6:12 PM CAMPUS RECEPTIONIST): As per history of present illness, patient [...] 04/05/2020 Assessment & Plan (05/03/2020 9:44 AM CAMPUS RECEPTIONIST): Continue apixaban, BB Chronic anticoagulation 04/05/2020 Aortic stenosis 02/01/2020 Claudication in peripheral vascular disease ([facility]) 02/01/2020 PAD (peripheral artery disease) 01/04/2020 Overview (01/04/2020): Added automatically from request for surgery [id number] Assessment & Plan (05/03/2020 9:42 AM CAMPUS RECEPTIONIST): I will continue patient's clopidogrel and statin therapy Assessment & Plan (05/02/2020 9:45 AM CAMPUS RECEPTIONIST): I will continue patient's clopidogrel and statin therapy Assessment & Plan (05/01/2020 6:11 PM CAMPUS RECEPTIONIST): I will continue patient's clopidogrel and statin therapy Systolic murmur 07/05/2019 Class 2 severe obesity due t o excess calories with serious comorbidity and body mass index (BMI) of 39.0 to 39.9 in adult 09/24/2017 Assessment & Plan (05/02/2020 9:46 AM CAMPUS RECEPTIONIST): This raises patient's complication risk related to COVID-19 Assessment & Plan (05/01/2020 6:14 PM CAMPUS RECEPTIONIST): This raises patient's complication risk related to COVID-19 Coronary artery disease of n ative artery of [place] heart with stable angina pectoris ([facility]) 03/18/2017 Hx of CABG 03/18/2017 Hypertension associated with diabetes 03/18/2017 S/P coronary artery stent placement 03/18/2017 Obesity with body mass index 30 or greater 02/14 Overview (09/06/2016): Obesity (BMI 35.0-39.9 without comorbidity) Mixed diabetic hyperlipidemi a associated with type 2 diabetes mellitus ([facility]) 12/11/2015 Overview (09/06/2016): DM type 2 with diabetic dyslipidemia Assessment & Plan (05/03/2020 9:42 AM CAMPUS RECEPTIONIST): Continue statin therapy Assessment & Plan (05/02/2020 9:45 AM CAMPUS RECEPTIONIST): Continue statin therapy Assessment & Plan (05/01/2020 6:11 PM CAMPUS RECEPTIONIST): Continue statin therapy Exercise-induced angina 03/01/2015 Overview (09/06/2016): Angina of effort ROYER on CPAP 03/01/2015 Overview (09/06/2016): ROYER on CPAP Assessment & Plan (05/03/2020 9:42 AM CAMPUS RECEPTIONIST): - continue CPAP at night Assessment & Plan (05/02/2020 9:45 AM CAMPUS RECEPTIONIST): While normally we avoid CPAP in the setting of COVID-19 infection in the hospital, patient tells me that he becomes quite short of breath and has significant apnea without it - continue CPAP at night Assessment & Plan (05/01/2020 6:11 PM CAMPUS RECEPTIONIST): While normally we avoid CPAP in the [...] 12/07/2021 Assessment & Plan (05/03/2020 9:44 AM CAMPUS RECEPTIONIST): I will continue patient's Plavix, statin, and beta-elan therapy. Assessment & Plan (05/02/2020 9:46 AM CAMPUS RECEPTIONIST): I will continue patient's Plavix, statin, and beta-elan therapy. Assessment & Plan (05/01/2020 6:15 PM CAMPUS RECEPTIONIST): I will continue patient's Plavix, statin, and beta-elan therapy. Encounters Date Type Department Care Team Description 10/06/2024 Telephone [facility] Medical Group Cardiology [address] [place] [address] J Carlos Quinones MD from [...] on file Legal Sex Male 2:06 AM CAMPUS RECEPTIONIST Gender Identity Not on file Sexual Orientation Not on file Obstetrics History Last Filed Vital Signs Vital Sign Reading Time Taken Comments Blood Pressure 126/58 06/16/2024 9:47 AM CAMPUS RECEPTIONIST Pulse 70 06/16/2024 9:47 AM CAMPUS RECEPTIONIST Temperature 36.7 C (98.1 F) 09/26/2023 1:09 PM CDT Respiratory Rate 20 09/26/2023 1:09 PM CDT Oxygen Saturation 97% 06/16/2024 9:47 AM CAMPUS RECEPTIONIST Inhaled Oxygen Concentration - - Weight 106.1 kg (234 lb) 06/16/2024 9:47 AM CAMPUS RECEPTIONIST Height 167.6 cm (5' 6) 06/16/2024 9:47 AM CAMPUS RECEPTIONIST Body Mass Index 37.77 06/16/2024 9:47 AM CAMPUS RECEPTIONIST Plan of Treatment Health Maintenance Due Date [...] 11/05/2022, 09/02/2022 Medical Devices Implanted Type Area Ammunition Specialist Device Identifier Shelf Expiration Date Model / Serial / Lot [employer]lett JumpHawk [id number] Synergy 3mm 20mm 144cm Radiopaque 1 Access Port Inflation Lumen - [id number] Implanted:Qty: 1 on 01/13/2020 by J Carlos Quinones MD at [facility] [employer] [id number] / / [employer] [id number] Synergy 3.5mm 24mm 144cm Radiopaque 1 Access Port Inflation Lumen - [id number] Implanted:Qty: 1 on 01/13/2020 by J Carlos Quinones MD at [facility] [employer] Jump[employer]awk [id number] / / [email or web address] [id number] Device Closure Angio-Seal Vip Bondek-Plus Polyglyd L70 Cm Od6 Fr Odsec.035 In Vascular - [id number] Implanted:Qty: 1 on 01/13/2020 by J Carlos Quinones MD at [facility] Daig Johanna[employer] [id number] / / Bard Peripheral Vascular [id number] Lifestream 8mm 26mm 80cm Balloon Expandable Low Profile Cover - [id number] Implanted:Qty: 1 on 03/09/2020 by J Carlos Quinones MD at [facility] Peripheral Vascular [id number] / / Daig Johanna [id number] Device Closure Angio-Seal Vip Bondek-Plus Polyglyd L70 Cm Od6 Fr Odsec.035 In Vascular - [id number] Implanted:Qty: 1 on 03/09/2020 by J Carlos Quinones MD at [facility] [employer]ig [employer] [id number] / / Daig Johanna [id number] Device Closure Angio-Seal Vip Bondek-Plus Polyglyd L70 Cm Od6 Fr Odsec.035 In Vascular - [id number] Implanted:Qty: 1 on 03/09/2020 by J Carlos Quinones MD at [facility]/[employer] [id number] / / Medtronic Card Vasc Surgery 3.5 X 15mm Jasbir [facility] [employer] Coronary Stent [id number] - [id number] Implanted:Qty: 1 [facility] 20[facility] 01/21/2026 [id number] / / [id number] Cardiva Medical [facility] Device Vascular Closure Femoral Artery Bioabsorbable Dual Method Vascade 6-7fr Collagen [id number] - [id number] Implanted:Qty: 1 on 2023 by J Carlos Quinones MD at [facility] 12/24/2024 [id number] / / [id number] Olivas Vascular Device Clsr Perclose Prostyle Sut-Mediatd Closure-Repair Sys 42471-87 - [id number] Implanted:Qty: 1 on 09/25/2023 by J Carlos Quinones MD at [facility] Vascular 06/01/2025 [id number] / / [id number] Olivas Vascular Device Clsr Perclose Prostyle Sut-Mediatd Closure-Repair Sys 26513-09 - [id number] Implanted:Qty: 1 on 09/25/2023 by J Carlos Quinones MD at [facility] Vascular 07/02/2025 [id number] / / [id number] Cardinv Medical [facility] Device Closure Vascade Od5 Fr Femoral Artery [id number] - [id number] Implanted:Qty: 1 on 09/25/2023 by J Carlos Quinones MD at [facility] 04/28/2025 [id number] [id number] / / [id number] Gonzalez Lifesciences Valve Aortic Trnscath August 3 Ultra Resilia 26mm [id number] - [id number] - [id number] Implanted:Qty: 1 on 09/25/2023 by J Carlos Quinones MD at [facility] [employer] 10/30/2025 [id number] / [id number] / Procedures Procedure Name Priority Date/Time Associated Diagnosis Comments LIPID PANEL Routine 06/16/2024 11:29 AM CAMPUS RECEPTIONIST EGFR Routine 09/26/2023 5:36 AM CDT HEMOGLOBIN A1C Routine 05/02/2020 9:36 PM CAMPUS RECEPTIONIST from Last 3 Months or Most Recently Relevant to Health Maintenance Results * Lipid panel (06/16/2024 11:29 AM CAMPUS RECEPTIONIST) SCRIBED Cholesterol, Total 102 <100 - <100 [...] ORDERABLES Final Resul t Performing Organization Address [facility] Co de Phone Number MAME [facility] [address] Department [place] [address] * (ABNORMAL) Hemoglobin A1c (05/02/2020 9:36 PM CAMPUS RECEPTIONIST) Hgb A1C 6.8(H) 4.0 - 5.6 % [facility] Estimated Average Glucose 148 mg/dL [facility] Comment: The ADA recommends reporting an estimated Average Glucose (eAG) with all Hemoglobin A1c results using the equation derived from a study of 507 normal and diabetic adults. Minority populations were underrepresented and children were not included. (Diabetes Care 31:1285-8924, 2008). The eAG is not equivalent to a fasting glucose. Blood specimen (specimen) 05/02/2020 9:36 PM CAMPUS RECEPTIONIST 05/02/2020 10:30 PM CAMPUS RECEPTIONIST us Alexx Bustamante MD LAB BLOOD ORDERABLES Final R esult Performing Organization Address [facility] Co de Phone Number MAME [facility] Department [place] [address] from Last 3 Months or Most Recently Relevant to Health Maintenance Insurance * Guarantor: Laurent Delgado Account Type Relation to Patient Date of Phone Billing Address Personal/Family Self 1955 [address] [place] [address] MEDICARE [facility] * Guarantor: Laurent Delgado Account Type Relation to Patient Date of Phone Billing Address Personal/Family Self [address] [place] [address] [facility] CHOICE PLUS MEDICARE [facility] MEDICARE [facility] Advance Directives For more information, please contact: [phone] * Full Code (Latest Code Status on File) Date Activated Date Inactivated Comments 05/01/2020 7:33 PM 05/03/2020 10:49 PM Care Teams Regulatory Compliance Manager Relationship Specialty Start Date End Date Michele Harp MD PCP - General 06/04/13
--- OUTSIDE RECORDS SUMMARY | 2024-11-01 08:03 | XMS_ITS | Referral Summary ---
Author Organization [facility] [address] Address [address] [place] [address] Care Team Providers Care Tool Pusher Name Role Phone Michele Harp MD Primary Care Provider [phone] Encounters Date Type Department Care Team Description 10/06/2024 Telephone [facility] Medical Group Cardiology [address] [place] [address] J Carlos Quinones MD from [...] 05/01/2020 Assessment & Plan (05/03/2020 9:44 AM BUSINESS ACCOUNT MANAGER): - He presented with malaise, cough, shortness of breath. Symptoms began approximately on 2020. Vital signs on admission hypoxemia. A CXR obtained on admission showed bilateral infiltrates. - COVID-19 RNA PCR was sent on April 20, 2020 at [facility].. The patient's testing for COVID-19 [...] decide Assessment & Plan (05/02/2020 9:46 AM BUSINESS ACCOUNT MANAGER): - He presented with malaise, cough, shortness of breath. Symptoms began approximately on 2020. Vital signs on admission hypoxemia. A CXR obtained on admission showed bilateral infiltrates. - COVID-19 RNA PCR was sent on April 20, 2020 at [facility].. The patient's testing for COVID-19 [...] treatment. Assessment & Plan (05/01/2020 6:15 PM BUSINESS ACCOUNT MANAGER): - He presented with malaise, cough, shortness of breath. Symptoms began approximately on 2020. Vital signs on admission hypoxemia. A CXR obtained on admission showed bilateral infiltrates. - COVID-19 RNA PCR was sent on April 20, 2020 at [facility] in [facility].. The patient's testing for COVID-19 is POSITIVE. [...] 2019 Assessment & Plan (05/03/2020 9:45 AM BUSINESS ACCOUNT MANAGER): This seems to be improved. I have asked the pulmonary rehab team to evaluate the patient to see if he might need oxygen at discharge - possible discharge later today or tomorrow Assessment & Plan (05/02/2020 9:46 AM BUSINESS ACCOUNT MANAGER): I will treat the patient with oxygen to maintain adequate oxygenation and treat his other issues as per below. Assessment & Plan (05/01/2020 6:15 PM BUSINESS ACCOUNT MANAGER): I will treat the patient with oxygen to maintain adequate oxygenation and treat his other issues as per below. DM2 (diabetes mellitus, type 2) 05/01/2020 Assessment & Plan (05/03/2020 9:43 AM BUSINESS ACCOUNT MANAGER): Doing well on current Lantus at night and NPH with dexamethasone - likely continue this at discharge Assessment & Plan (05/02/2020 9:46 AM BUSINESS ACCOUNT MANAGER): Lantus reduced to 40 units last night - will give NPH with dexamethasone today and follow sugars Assessment & Plan (05/01/2020 6:12 PM BUSINESS ACCOUNT MANAGER): As per history of present illness, patient [...] 04/05/2020 Assessment & Plan (05/03/2020 9:44 AM BUSINESS ACCOUNT MANAGER): Continue apixaban, BB Chronic anticoagulation 04/05/2020 Aortic stenosis 02/01/2020 Claudication in peripheral vascular disease ([facility]) 02/01/2020 PAD (peripheral artery disease) 01/04/2020 Overview (01/04/2020): Added automatically from request for surgery [id number] Assessment & Plan (05/03/2020 9:42 AM BUSINESS ACCOUNT MANAGER): I will continue patient's clopidogrel and statin therapy Assessment & Plan (05/02/2020 9:45 AM BUSINESS ACCOUNT MANAGER): I will continue patient's clopidogrel and statin therapy Assessment & Plan (05/01/2020 6:11 PM BUSINESS ACCOUNT MANAGER): I will continue patient's clopidogrel and statin therapy Systolic murmur 07/05/2019 Class 2 severe obesity due t o excess calories with serious comorbidity and body mass index (BMI) of 39.0 to 39.9 in adult 09/24/2017 Assessment & Plan (05/02/2020 9:46 AM BUSINESS ACCOUNT MANAGER): This raises patient's complication risk related to COVID-19 Assessment & Plan (05/01/2020 6:14 PM BUSINESS ACCOUNT MANAGER): This raises patient's complication risk related to COVID-19 Coronary artery disease of n ative artery of [place] heart with stable angina pectoris ([facility]) 03/18/2017 Hx of CABG 03/18/2017 Hypertension associated with diabetes 03/18/2017 S/P coronary artery stent placement 03/18/2017 Obesity with body mass index 30 or greater 02/14 Overview (09/06/2016): Obesity (BMI 35.0-39.9 without comorbidity) Mixed diabetic hyperlipidemi a associated with type 2 diabetes mellitus ([facility]) 12/11/2015 Overview (09/06/2016): DM type 2 with diabetic dyslipidemia Assessment & Plan (05/03/2020 9:42 AM BUSINESS ACCOUNT MANAGER): Continue statin therapy Assessment & Plan (05/02/2020 9:45 AM BUSINESS ACCOUNT MANAGER): Continue statin therapy Assessment & Plan (05/01/2020 6:11 PM BUSINESS ACCOUNT MANAGER): Continue statin therapy Exercise-induced angina 03/01/2015 Overview (09/06/2016): Angina of effort ROYER on CPAP 03/01/2015 Overview (09/06/2016): ROYER on CPAP Assessment & Plan (05/03/2020 9:42 AM BUSINESS ACCOUNT MANAGER): - continue CPAP at night Assessment & Plan (05/02/2020 9:45 AM BUSINESS ACCOUNT MANAGER): While normally we avoid CPAP in the setting of COVID-19 infection in the hospital, patient tells me that he becomes quite short of breath and has significant apnea without it - continue CPAP at night Assessment & Plan (05/01/2020 6:11 PM BUSINESS ACCOUNT MANAGER): While normally we avoid CPAP in the [...] 12/07/2021 Assessment & Plan (05/03/2020 9:44 AM BUSINESS ACCOUNT MANAGER): I will continue patient's Plavix, statin, and beta-elan therapy. Assessment & Plan (05/02/2020 9:46 AM BUSINESS ACCOUNT MANAGER): I will continue patient's Plavix, statin, and beta-elan therapy. Assessment & Plan (05/01/2020 6:15 PM BUSINESS ACCOUNT MANAGER): I will continue patient's Plavix, statin, and [...] on file Legal Sex Male 2:06 AM BUSINESS ACCOUNT MANAGER Gender Identity Not on file Sexual Orientation Not on file Last Filed Vital Signs Vital Sign Reading Time Taken Comments Blood Pressure 126/58 06/16/2024 9:47 AM BUSINESS ACCOUNT MANAGER Pulse 70 06/16/2024 9:47 AM BUSINESS ACCOUNT MANAGER Temperature 36.7 C (98.1 F) 09/26/2023 1:09 PM CDT Respiratory Rate 20 09/26/2023 1:09 PM CDT Oxygen Saturation 97% 06/16/2024 9:47 AM BUSINESS ACCOUNT MANAGER Inhaled Oxygen Concentration - - Weight 106.1 kg (234 lb) 06/16/2024 9:47 AM BUSINESS ACCOUNT MANAGER Height 167.6 cm (5' 6) 06/16/2024 9:47 AM BUSINESS ACCOUNT MANAGER Body Mass Index 37.77 06/16/2024 9:47 AM BUSINESS ACCOUNT MANAGER Plan of Treatment Not on file Medical Devices Implanted Type Area Emergency Nurse Device Identifier Shelf Expiration Date Model / Serial / Lot [employer] [id number] Synergy 3mm 20mm 144cm Radiopaque 1 Access Port Inflation Lumen - [id number] Implanted:Qty: 1 on 01/13/2020 by J Carlos Quinones MD at [facility] [employer] [id number] / / [employer] [id number] Synergy 3.5mm 24mm 144cm Radiopaque 1 Access Port Inflation Lumen - [id number] Implanted:Qty: 1 on 01/13/2020 by J Carlos Quinones MD at [facility] [employer] [id number] / / [id number] Device Closure Angio-Seal Vip Bondek-Plus Polyglyd L70 Cm Od6 Fr Odsec.035 In Vascular - [id number] Implanted:Qty: 1 on 01/13/2020 by J Carlos Quinones MD at [facility] Daig Johanna[employer] [id number] / / Bard Peripheral Vascular [id number] Lifestream 8mm 26mm 80cm Balloon Expandable Low Profile Cover - [id number] Implanted:Qty: 1 on 03/09/2020 by J Carlos Quinones MD at [facility] Peripheral Vascular [id number] / / [employer] twago - [employer] [id number] Device Closure Angio-Seal Vip Bondek-Plus Polyglyd L70 Cm Od6 Fr Odsec.035 In Vascular - [id number] Implanted:Qty: 1 on 03/09/2020 by J Carlos Quinones MD at [facility] Daig Johanna[employer] [id number] / / Daig Johanna [id number] Device Closure Angio-Seal Vip Bondek-Plus Polyglyd L70 Cm Od6 Fr Odsec.035 In Vascular - [id number] Implanted:Qty: 1 on 03/09/2020 by J Carlos Quinones MD at [facility]/[employer] [id number] / / Medtronic Card Vasc Surgery 3.5 X 15mm N[employer] Rx Coronary Stent [id number] - [id number] Implanted:Qty: 1 on 20[facility] V[facility] 01/21/2026 [id number] / / [id number] Cardiva Medical [facility] Device Vascular Closure Femoral Artery Bioabsorbable Dual Method Vascade 6-7fr Collagen [id number] - [id number] Implanted:Qty: 1 on 2023 by J Carlos Quinones MD at [facility] Medical [facility] 12/24/2024 [id number]-0 5U / / [id number] Olivas Vascular Device Clsr Perclose Prostyle Sut-Mediatd Closure-Repair Sys 70707-30 - [id number] Implanted:Qty: 1 on 09/25/2023 by J Carlos Quinones MD at [facility] Vascular 06/01/2025 [id number] / / [id number] Olivas Vascular Device Clsr Perclose Prostyle Sut-Mediatd Closure-Repair Sys 31576-29 - [id number] Implanted:Qty: 1 on 09/25/2023 by J Carlos Quinones MD at [facility] [employer] Vascular 07/02/2025 [id number] / / [id number] Carditn Medical [facility] Device Closure Vascade Od5 Fr Femoral Artery [id number] - [id number] Implanted:Qty: 1 on 09/25/2023 by J Carlos Quinones MD at [facility] Medical [facility] 04/28/2025 [id number]- 05U / / [id number] Gonzalez Lifesciences Valve Aortic Trnscath August 3 Ultra Resilia 26mm [id number] - [id number] - [id number] Implanted:Qty: 1 on 09/25/2023 [facility] 10/30/2025 [id number] / [id number] / Procedures Procedure Name Priority Date/Time Associated Diagnosis Comments LIPID PANEL Routine 06/16/2024 11:29 AM BUSINESS ACCOUNT MANAGER EGFR Routine 09/26/2023 5:36 AM CDT HEMOGLOBIN A1C Routine 05/02/2020 9:36 PM BUSINESS ACCOUNT MANAGER from Last 3 Months or Most Recently Relevant to Health Maintenance Results * Lipid panel (06/16/2024 11:29 AM BUSINESS ACCOUNT MANAGER) SCRIBED Cholesterol, Total 102 <100 - <100 [...] ORDERABLES Final Resul t Performing Organization Address [facility] Co de Phone Number MAME [address] [place] [address] * (ABNORMAL) Hemoglobin A1c (05/02/2020 9:36 PM BUSINESS ACCOUNT MANAGER) Hgb A1C 6.8(H) 4.0 - 5.6 % [facility] Estimated Average Glucose 148 mg/dL [facility] Comment: The ADA recommends reporting an estimated Average Glucose (eAG) with all Hemoglobin A1c results using the equation derived from a study of 507 normal and diabetic adults. Minority populations were underrepresented and children were not included. (Diabetes Care 31:8218-4576, 2008). The eAG is not equivalent to a fasting glucose. Blood specimen (specimen) 05/02/2020 9:36 PM BUSINESS ACCOUNT MANAGER 05/02/2020 10:30 PM BUSINESS ACCOUNT MANAGER us Alexx Bustamante MD LAB BLOOD ORDERABLES Final R esult Performing Organization Address [facility] Co de Phone Number MAME [facility] One [facility] [place] [address] from Last 3 Months or Most Recently Relevant to Health Maintenance Insurance MEDICARE [facility] PLUS [facility] H[facility]/PPO Address: [address] [address] [place] [address] MEDICARE [facility] MEDICARE [facility] Advance Directives For more information, please contact: [phone] * Full Code (Latest Code Status on File) Date Activated Date Inactivated Comments 05/01/2020 7:33 PM 05/03/2020 10:49 PM Care Teams Tool Pusher Relationship Specialty Start Date End Date Michele Harp MD PCP - General 06/04/13
[2024-11-01 14:50] LABS: LDL Cholesterol Direct 48 mg/dL
[2024-11-01 14:58] LABS: Alanine Aminotransferase 28 U/L (6-50); Albumin Level 4.3 g/dL (3.5-5.1); Alkaline Phosphatase 44 U/L (38-126); Anion Gap 9 mmol/L (4-12); Aspartate Amino Transferase 60 U/L (17-59); Bilirubin,Total 0.5 mg/dL (0.2-1.3); Blood Urea Nitrogen 20 mg/dL (9-20); Calcium 8.9 mg/dL (8.4-10.2); Carbon Dioxide 29 mmol/L (22-30); Chloride 106 mmol/L (98-107); Cholesterol 106 mg/dL (0-200); Estimated Glomerular Filt Rate > 60; Glucose 55 mg/dL (65-110); HDL Direct 24 mg/dL; Potassium 3.5 mmol/L (3.4-5.0); Sodium 144 mmol/L (137-145); Triglycerides 151 mg/dL (<150)
[2024-11-01 15:25] LABS: Creatinine Urine 152.9 mg/dL
[2024-11-01 15:27] LABS: MALB Creatinine Ratio 9.4 mg/g (0-30); Microalbumin Urine Random 14.3 mg/L (0-16.7)
[2024-11-01 19:56] LABS: Hemoglobin A1C 5.9 % (<5.7)
== END 2024-11-01 07:58 | disposition home or self-care (01) ==
LOC: ANHGOSHLAB 07:58
PROVIDERS: PCP Family Medicine; Visit Provider Family Medicine
DX: E11.9 Type 2 diabetes mellitus without complications (principal)
CPT/HCPCS: 36415; 80053; 80061; 82043; 83036

== ENCOUNTER 2024-11-19 11:31 | Outpatient (CLI) | payer MEDICARE, SELFPAY | END 2024-11-19 11:32 | disposition home or self-care (01) | PROVIDERS: PCP Family Medicine; Visit Provider Nurse Practitioner Family | DX: M25.561 Pain in right knee (principal) | CPT/HCPCS: 73562 ==

== ENCOUNTER 2024-12-29 00:21 | Day surgery (SDC) | payer MEDICARE, SELFPAY ==
--- NOTE | 2024-12-24 11:28 | PC.NURSE ---
Report to the Outpatient Waiting Room, entrance under the green pavilion located off [facility], at time _6 AM on date ___12/29/24____. Planned Procedure Time: _7:30 AM .? Time changes happen often and if your time is changed the preop area will call you the afternoon before. - You and your visitor will be asked to self-screen and do not enter if you have any COVID symptoms. Please call surgeon if you need to reschedule. - A mask is optional within the hospital at this time. NOTHING TO EAT OR DRINK 8 HOURS PRIOR TO SURGERY PER DR BOB Take only the following medications with a SIP of water on the morning of surgery: __ISOSORBIDE,METOPROLOL DO NOT STOP ANY OF YOUR OTHER PRESCRIPTION MEDICATIONS PRIOR TO SURGERY EXCEPT THE FOLLOWING Hold all vitamins and supplements for 3 days per anesthesiologist. LAST DOSE 12/25/24 Medications to discontinue per physician PT STATES HOLD ELIQUIS 4 DAYS PRE OP PER DR LAKE LAST DOSE 12/24/24 AND HOLD PLAVIX 5 DAYS PRE O OP PER DR LAKE LAST DOSE 12/23/24 Date to take last dose Please no make-up, nail icelandic, hairspray, perfume, deodorant, or body powder the day of surgery.? No jewelry (including any body piercings) or valuables the day of surgery, leave them at home.? Please take a shower or bath the night before, or the morning of, surgery with an antibacterial soap.? Wear comfortable, loose fitting clothing.? Children are encouraged to wear pajamas. - Jewelry must be removed prior to entering the operating room.? Rings and piercings that are not removed may be cut off. - The hospital will not accept responsibility for valuables.? - Please leave all valuables, including medications, at home the day of surgery. If you are going home after surgery, a licensed road driver must drive you home.? - NO public transportation without another adult if you receive anesthesia. - We recommend that an adult stay with you for 24 hours following discharge. - We also recommend that you do not drive, make important decision, drink alcoholic beverages, or take any drugs that were not prescribed by your health care provider for at least 24 hours after your discharge time. For Pediatric surgeries, we recommend two adults accompany the child home. Follow any additional instructions given to you from your surgeon. Telephone instructions given to __PATIENT and asked if any additional questions and then verbalized understanding. Patient advised to call surgeon office or pre surgery nurse liaison [phone] if any additional questions.
[2024-12-24 11:36] VITALS: BMI 37.9
--- OUTSIDE RECORDS SUMMARY | 2024-12-29 00:23 | XMS_ITS | Encounter Summary ---
Author Organization [facility] Healthcare Address [address] [place] [address] Care Team Providers Care Quality Controller Name Role Phone Michele Harp MD Primary Care Provider [phone] Encounter Details Date Type Department Care Team (Late st Contact Info) Description 02/16/2020 Orders Only [facility] Health Information Management [address] [place] [id number] Scanning, Provider Social History Tobacco Use Types Packs/Day Years Used Date Smoking Tobacco: Former Smokeless Tobacco: Never Alcohol Use Standard Drinks/Week Comments Yes 0 (1 standard drink = 0.6 oz pur e alcohol) Sex and Gender Information Value Date Recorded Sex Assigned at Not on file Legal Sex Male 2:06 AM [employer]TER [employer] Gender Identity Not on file Sexual Orientation Not on file documented as of this encounter Plan of Treatment Not on file documented as of this encounter Procedures Procedure Name Priority Date/Time Associated Diagnosis Comments CARDIOLOGY DOCUMENT SCAN 02/16/2020 documented in this encounter Results * Cardiology Document Scan (02/16/2020) Anatomical Region Laterality Modality Other us Provider Scanning CV CARDIAC SERVICES PROCEDURES Final Result documented in this encounter Visit Diagnoses Not on filedocumented in this encounter Additional Health Concerns Infection Onset Date Last Indicated Resolved Time COVID19 04/20/2020 04/20/2020 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 05/17/2020 05/19/2020 09/14/2020 3:06 AM C DT documented as of this encounter Care Teams Quality Controller Relationship Specialty Start Date End Date Michele Harp MD PCP - General 06/04/13 documented as of this encounter
--- OUTSIDE RECORDS SUMMARY | 2024-12-29 00:23 | XMS_ITS | Continuity of Care Document ---
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 It does not include entries that were removed or entered in error. Problem Status Onset Date Problem Type Date of Resolution Comments Source Exposure to potentially hazardous substance Active Condition Jun 11, 2023 Entered By: ANILA CEVALLOS I Comment: Ganesh Galvan [facility] Diagnosis: ICD-10-CM Z77.29 Contact with and exposure to other hazardous substances Active Diagnosis [facility] Results Combined list of recent chemistry, hematology [...] Jun 11, 2023 10:10 AM Reporting Lab: [facility] [place] [address] Performing Lab: [facility] DIVISION CBC ERYTHROCYT ES [#/VOLUME] IN BLOOD BY AUTOMATED COUNT 4.72 10*6/uL 4.10 - 5.70 06/11 Specimen Type: BLOOD No comment entered. Ordering Provider: ROSA CEVALLOS I Report Released Date/Time: Jun 11, 2023 10:10 AM Reporting Lab: [facility] [place] [address] Performing Lab: [facility] DIVISION CBC HEMOGLOBIN [MASS/VOLU ME] IN BLOOD 13.1 g/dL 13.1 - 16.8 06/11 Specimen Type: BLOOD No comment entered. Ordering Provider: ROSA CEVALLOS I Report Released Date/Time: Jun 11, 2023 10:10 AM Reporting Lab: [facility] [place] [address] Performing Lab: [facility] CBC HEMATOCRIT [VOLUME FRACTION] OF BLOOD 38.6 38.2 - 48.4 06/11 Specimen Type: BLOOD No comment entered. Ordering Provider: ROSA CEVALLOS I Report Released Date/Time: Jun 11, 2023 10:10 AM Reporting Lab: [facility]1 [place] [address] Performing Lab: [facility] [address] CBC MCV [ENTITIC VOLUME] BY AUTOMATED COUNT 81.8 fL 80.0 - 100.0 06/11 Specimen Type: BLOOD No comment entered. Ordering Provider: ROSA CEVALLOS I Report Released Date/Time: Jun 11, 2023 10:10 AM Reporting Lab: [facility] [place] [address] Performing Lab: [facility] [address] CBC MCH [ENTITIC MASS] BY AUTOMATED COUNT 27.8 pg 27.0 - 34.0 06/11 Specimen Type: BLOOD No comment entered. Ordering Provider: ROSA CEVALLOS I Report Released Date/Time: Jun 11, 2023 10:10 AM Reporting Lab: [facility] [place] [address] Performing Lab: [facility] CBC MCHC [MASS/VOLU ME] BY AUTOMATED COUNT 33.9 g/dL 33.0 - 36.0 06/11 Specimen Type: BLOOD No comment entered. Ordering Provider: ROSA CEVALLOS I Report Released Date/Time: Jun 11, 2023 10:10 AM Reporting Lab: [facility] [place] [address] Performing Lab: [facility] CBC PLATELETS [#/VOLUME] IN BLOOD BY AUTOMATED COUNT 147 10*3/uL 150 - 400 06/11 L Specimen Type: BLOOD No comment entered. Ordering Provider: ROSA CEVALLOS I Report Released Date/Time: Jun 11, 2023 10:10 AM Reporting Lab: [facility] [place] [address] Performing Lab: [facility] CBC PLATELET MEAN VOLUME [ENTITIC VOLUME] IN BLOOD BY AUTOMATED COUNT 10.8 fL 7.5 - 11.2 06/11 Specimen Type: BLOOD No comment entered. Ordering Provider: ROSA CEVALLOS I Report Released Date/Time: Jun 11, 2023 10:10 AM Reporting Lab: [facility] [place] [address] Performing Lab: [facility] CBC ERYTHROCYT E DISTRIBUTI ON WIDTH [RATIO] BY AUTOMATED COUNT 14.1 11.8 - 15.1 06/11 Specimen Type: BLOOD No comment entered. Ordering Provider: ROSA CEVALLOS I Report Released Date/Time: Jun 11, 2023 10:10 AM Reporting Lab: [facility] [place] [address] Performing Lab: [facility] DIVISION CBC LYMPHOCYTE S/100 LEUKOCYTES IN BLOOD BY AUTOMATED COUNT 28 06/11 Specimen Type: BLOOD No comment entered. Ordering Provider: ROSA CEVALLOS I Report Released Date/Time: Jun 11, 2023 10:10 AM Reporting Lab: [facility] [place] [address] Performing Lab: [facility] DIVISION CBC MONOCYTES/ 100 LEUKOCYTES IN BLOOD BY AUTOMATED COUNT 7 06/11 Specimen Type: BLOOD No comment entered. Ordering Provider: ROSA CEVALLOS I Report Released Date/Time: Jun 11, 2023 10:10 AM Reporting Lab: [facility] [place] [address] Performing Lab: [facility] DIVISION CBC NEUTROPHIL S/100 LEUKOCYTES IN BLOOD BY AUTOMATED COUNT 62 06/11 Specimen Type: BLOOD No comment entered. Ordering Provider: ROSA CEVALLOS I Report Released Date/Time: Jun 11, 2023 10:10 AM Reporting Lab: [facility] [place] [address] Performing Lab: [facility] DIVISION CBC EOSINOPHIL S/100 LEUKOCYTES IN BLOOD BY AUTOMATED COUNT 3 06/11 Specimen Type: BLOOD No comment entered. Ordering Provider: ROSA CEVALLOS I Report Released Date/Time: Jun 11, 2023 10:10 AM Reporting Lab: [facility] [place] [address] Performing Lab: [facility] DIVISION CBC BASOPHILS/ 100 LEUKOCYTES IN BLOOD BY AUTOMATED COUNT 0 06/11 Specimen Type: BLOOD No comment entered. Ordering Provider: ROSA CEVALLOS I Report Released Date/Time: Jun 11, 2023 10:10 AM Reporting Lab: [facility] [place] [address] Performing Lab: [facility] DIVISION CBC LYMPHOCYTE S [#/VOLUME] IN BLOOD BY AUTOMATED COUNT 1.60 10*3/uL 0.77 - 4.50 06/11 Specimen Type: BLOOD No comment entered. Ordering Provider: ROSA CEVALLOS I Report Released Date/Time: Jun 11, 2023 10:10 AM Reporting Lab: [facility] [place] [address] Performing Lab: [facility] DIVISION CBC MONOCYTES [#/VOLUME] IN BLOOD BY AUTOMATED COUNT 0.38 10*3/uL 0.19 - 0.80 06/11 Specimen Type: BLOOD No comment entered. Ordering Provider: ROSA CEVALLOS I Report Released Date/Time: Jun 11, 2023 10:10 AM Reporting Lab: [facility] [place] [address] Performing Lab: [facility] DIVISION CBC NEUTROPHIL S [#/VOLUME] IN BLOOD BY AUTOMATED COUNT 3.54 10*3/uL 2.10 - 8.00 06/11 Specimen Type: BLOOD No comment entered. Ordering Provider: ROSA CEVALLOS I Report Released Date/Time: Jun 11, 2023 10:10 AM Reporting Lab: [facility] [place] [address] Performing Lab: [facility] DIVISION CBC EOSINOPHIL S [#/VOLUME] IN BLOOD BY AUTOMATED COUNT 0.16 10*3/uL 0.00 - 0.60 06/11 Specimen Type: BLOOD No comment entered. Ordering Provider: ROSA CEVALLOS I Report Released Date/Time: Jun 11, 2023 10:10 AM Reporting Lab: [facility] [place] [address] Performing Lab: [facility] DIVISION CBC BASOPHILS [#/VOLUME] IN BLOOD BY AUTOMATED COUNT 0.02 10*3/uL 0.00 - 0.20 06/11 Specimen Type: BLOOD No comment entered. Ordering Provider: ROSA CEVALLOS I Report Released Date/Time: Jun 11, 2023 10:10 AM Reporting Lab: [facility] [place] [address] Performing Lab: [facility] CBC PLATELETS RETICULATE D/100 PLATELETS IN BLOOD BY AUTOMATED COUNT 5.4 1.0 - 7.0 06/11 Specimen Type: BLOOD No comment entered. Ordering Provider: ROSA CEVALLOS I Report Released Date/Time: Jun 11, 2023 10:10 AM Reporting Lab: [facility] [place] [address] Performing Lab: [facility] DIVISION COMPREHE NSIVE METABOLI C PANEL CREATININE [MASS/VOLU ME] IN SERUM OR PLASMA 0.90 mg/dL 0.70 - 1.30 06/11 Specimen Type: PLASMA Comment: No hemolysis noted. Ordering Provider: ROSA CEVALLOS I Report Released Date/Time: Jun 11, 2023 10:10 AM Reporting Lab: [facility] [place] [address] Performing Lab: [facility] DIVISION COMPREHE NSIVE METABOLI C PANEL UREA NITROGEN [MASS/VOLU ME] IN SERUM OR PLASMA 12.6 mg/dL 9.0 - 25.0 06/11 Specimen Type: PLASMA Comment: No hemolysis noted. Ordering Provider: ROSA CEVALLOS I Report Released Date/Time: Jun 11, 2023 10:10 AM Reporting Lab: [facility] [place] [address] Performing Lab: [facility] DIVISION COMPREHE NSIVE METABOLI C PANEL GLUCOSE [MASS/VOLU ME] IN SERUM OR PLASMA 154 mg/dL 72 - 99 06/11 H Specimen Type: PLASMA Comment: No hemolysis noted. Ordering Provider: ROSA CEVALLOS I Report Released Date/Time: Jun 11, 2023 10:10 AM Reporting Lab: [facility] [place] [address] Performing Lab: [facility] DIVISION COMPREHE NSIVE METABOLI C PANEL SODIUM [MOLES/VOL UME] IN SERUM OR PLASMA 146 meq/L 136 - 145 06/11 H Specimen Type: PLASMA Comment: No hemolysis noted. Ordering Provider: ROSA CEVALLOS I Report Released Date/Time: Jun 11, 2023 10:10 AM Reporting Lab: [facility] [place] [address] Performing Lab: [facility] DIVISION COMPREHE NSIVE METABOLI C PANEL POTASSIUM [MOLES/VOL UME] IN SERUM OR PLASMA 3.9 meq/L 3.5 - 5.0 06/11 Specimen Type: PLASMA Comment: No hemolysis noted. Ordering Provider: ROSA CEVALLOS I Report Released Date/Time: Jun 11, 2023 10:10 AM Reporting Lab: [facility] [place] [address] Performing Lab: [facility] DIVISION COMPREHE NSIVE METABOLI C PANEL CHLORIDE [MOLES/VOL UME] IN SERUM OR PLASMA 109 meq/L 98 - 107 06/11 H Specimen Type: PLASMA Comment: No hemolysis noted. Ordering Provider: ROSA CEVALLOS I Report Released Date/Time: Jun 11, 2023 10:10 AM Reporting Lab: [facility] [place] [address] Performing Lab: [facility] DIVISION COMPREHE NSIVE METABOLI C PANEL CARBON DIOXIDE, TOTAL [MOLES/VOL UME] IN SERUM OR PLASMA 26 meq/L 22 - 31 06/11 Specimen Type: PLASMA Comment: No hemolysis noted. Ordering Provider: ROSA CEVALLOS I Report Released Date/Time: Jun 11, 2023 10:10 AM Reporting Lab: [facility] [place] [address] Performing Lab: [facility] DIVISION COMPREHE NSIVE METABOLI C PANEL CALCIUM [MASS/VOLU ME] IN SERUM OR PLASMA 8.8 mg/dL 8.4 - 10.4 06/11 Specimen Type: PLASMA Comment: No hemolysis noted. Ordering Provider: ROSA CEVALLOS I Report Released Date/Time: Jun 11, 2023 10:10 AM Reporting Lab: [facility] [place] [address] Performing Lab: [facility] DIVISION COMPREHE NSIVE METABOLI C PANEL PROTEIN [MASS/VOLU ME] IN SERUM OR PLASMA 6.6 g/dL 6.0 - 8.6 06/11 Specimen Type: PLASMA Comment: No hemolysis noted. Ordering Provider: ROSA CEVALLOS I Report Released Date/Time: Jun 11, 2023 10:10 AM Reporting Lab: [facility] [place] [address] Performing Lab: [facility] DIVISION COMPREHE NSIVE METABOLI C PANEL ALBUMIN [MASS/VOLU ME] IN SERUM OR PLASMA 4.0 g/dL 3.4 - 5.0 06/11 Specimen Type: PLASMA Comment: No hemolysis noted. Ordering Provider: ROSA CEVALLOS I Report Released Date/Time: Jun 11, 2023 10:10 AM Reporting Lab: [facility] [place] [address] Performing Lab: [facility] DIVISION COMPREHE NSIVE METABOLI C PANEL BILIRUBIN. TOTAL [MASS/VOLU ME] IN SERUM OR PLASMA 0.4 mg/dL 0.2 - 1.2 06/11 Specimen Type: PLASMA Comment: No hemolysis noted. Ordering Provider: ROSA CEVALLOS I Report Released Date/Time: Jun 11, 2023 10:10 AM Reporting Lab: [facility] [place] [address] Performing Lab: [facility] DIVISION COMPREHE NSIVE METABOLI C PANEL ALKALINE PHOSPHATAS E [ENZYMATIC ACTIVITY/V OLUME] IN SERUM OR PLASMA 42 U/L 40 - 150 06/11 Specimen Type: PLASMA Comment: No hemolysis noted. Ordering Provider: ROSA CEVALLOS I Report Released Date/Time: Jun 11, 2023 10:10 AM Reporting Lab: [facility] [place] [address] Performing Lab: [facility] [id number] DIVISION COMPREHE NSIVE METABOLI C PANEL ASPARTATE AMINOTRANS FERASE [ENZYMATIC ACTIVITY/V OLUME] IN SERUM OR PLASMA 24 U/L 5 - 34 06/11 Specimen Type: PLASMA Comment: No hemolysis noted. Ordering Provider: ROSA CEVALLOS I Report Released Date/Time: Jun 11, 2023 10:10 AM Reporting Lab: [facility] [place] [address] Performing Lab: [facility] DIVISION COMPREHE NSIVE METABOLI C PANEL ALANINE AMINOTRANS FERASE [ENZYMATIC ACTIVITY/V OLUME] IN SERUM OR PLASMA 30 U/L 8 - 40 06/11 Specimen Type: PLASMA Comment: No hemolysis noted. Ordering Provider: ROSA CEVALLOS I Report Released Date/Time: Jun 11, 2023 10:10 AM Reporting Lab: [facility] [place] [address] Performing Lab: [facility] DIVISION COMPREHE NSIVE METABOLI C PANEL GLOMERULAR FILTRATION RATE/1.73 SQ M.PREDICTE D [VOLUME RATE/AREA] IN SERUM, PLASMA OR BLOOD BY CREATININE -BASED FORMULA (CKD-EPI 2020) 93.03 60 06/11 Specimen Type: PLASMA Comment: No hemolysis noted. Ordering Provider: ROSA CEVALLOS I Report Released Date/Time: Jun 11, 2023 10:10 AM Reporting Lab: [facility] [place] [address] Performing Lab: [facility] DIVISION LIPID PANEL (STL) CHOLESTERO L [MASS/VOLU ME] IN SERUM OR PLASMA 120 mg/dL 0 - 200 06/11 Specimen Type: PLASMA Comment: No hemolysis noted. Ordering Provider: ROSA CEVALLOS I Report Released Date/Time: Jun 11, 2023 10:10 AM Reporting Lab: [facility] [place] [address] Performing Lab: [facility] LIPID PANEL (STL) TRIGLYCERI DE [MASS/VOLU ME] IN SERUM OR PLASMA 210 mg/dL 0 - 150 06/11 H Specimen Type: PLASMA Comment: No hemolysis noted. Ordering Provider: ROSA CEVALLOS I Report Released Date/Time: Jun 11, 2023 10:10 AM Reporting Lab: [facility] [place] [address] Performing Lab: [facility] LIPID PANEL (STL) CHOLESTERO L IN LDL [MASS/VOLU ME] IN SERUM OR PLASMA BY CALCULATIO N 55 mg/dL 06/11 Specimen Type: PLASMA Comment: No hemolysis noted. Ordering Provider: ROSA CEVALLOS I Report Released Date/Time: Jun 11, 2023 10:10 AM Reporting Lab: [facility] [place] [address] Performing Lab: [facility] LIPID PANEL (STL) CHOLESTERO L IN HDL [MASS/VOLU ME] IN SERUM OR PLASMA 23 mg/dL 40 06/11 L Specimen Type: PLASMA Comment: No hemolysis noted. Ordering Provider: ROSA CEVALLOS I Report Released Date/Time: Jun 11, 2023 10:10 AM Reporting Lab: [facility] [place] [address] Performing Lab: [facility] [address] DIVISION HGA1C HEMOGLOBIN A1C/HEMOGL OBIN.TOTAL IN BLOOD 7.6 4.0 - 6.0 06/11 H Specimen Type: BLOOD No comment entered. Ordering Provider: ROSA CEVALLOS I Report Released Date/Time: Jun 11, 2023 10:10 AM Reporting Lab: [facility] [place] [address] Performing Lab: [facility] PROST. SPECIFIC AG.(PB-S TL) PROSTATE SPECIFIC [...] Jun 11, 2023 10:10 AM Reporting Lab: [facility] [id number] Performing Lab: [facility] HEP C Ab HCV Ab (STL) HEPATITIS C VIRUS AB [PRESENCE] IN SERUM Nonreact hector 06/11 Specimen Type: SERUM No comment entered. Ordering Provider: ROSA CEVALLOS I Report Released Date/Time: Jun 11, 2023 10:10 AM Reporting Lab: [facility] [address] [facility] [id number] Performing Lab: [facility] [address] [facility] [id number] [facility] Encounters Combined list of: 1) Encounters from Department of [facility] Affairs facilities going backup to the last 18 months, not all [facility] inpatient encounters are included; 2) Encounters from the Department of Defense facilities going backup to 280 months. Location Location Details Encounter Type Encounter Number Reason For Visit Attending Provider ADM Date DC Date Status Disposition Source [facility] OFFICE O/P EST HI 40 MIN [id number] Diagnos is: ICD-10- CM Z77.29 Contact with and exposur e to other hazardo us substan ABIMAEL Paige I 06/11 [facility] Outpatient Encounter [id number] 08/12 [facility]
--- OUTSIDE RECORDS SUMMARY | 2024-12-29 00:24 | XMS_ITS | Clinical Summary ---
Author Organization [facility] [address] Address [address] [place] [address] Care Team Providers Care Mortgage Loan Assistant Name Role Phone Michele Harp MD Primary Care Provider [phone] Allergies No known active allergies Medications blood [...] mouth every 6 (six) hours 4 Active Eliquis 5 mg tabletIndication s:Paroxysmal atrial flutter (HCC) TAKE 1 TABLET BY MOUTH TWICE DAILY 180 tablet 3 5 Active isosorbide mononitrate ER (IMDUR) 60 mg 24 hr tablet TAKE 1 TABLET BY MOUTH DAILY 90 tablet 1 5 Active metoprolol tartrate (LOPRESSOR) 50 mg immediate release tablet TAKE 1 TABLET BY MOUTH TWICE DAILY 180 tablet 3 5 Active lisinopriL (PRINIVIL,ZESTRI L) 20 mg tablet TAKE 1 TABLET BY MOUTH DAILY 90 tablet 3 5 Active clopidogreL (PLAVIX) 75 mg tablet TAKE 1 TABLET BY MOUTH DAILY 90 tablet 3 5 Active furosemide (LASIX) 40 mg tablet TAKE 1 TABLET BY MOUTH DAILY 90 tablet 3 5 Active rosuvastatin (CRESTOR) 40 mg tablet TAKE 1 TABLET BY MOUTH DAILY 90 tablet 3 5 Active Active Problems Problem Noted Date Diagnosed Date S/p TAVR (transcatheter aort ic valve replacement), bioprosthetic 09/25/2023 Severe aortic stenosis 08/25/2023 Morbid (severe) obesity due to excess calories 1 COVID-19 virus infection 05/01/2020 Assessment & Plan (05/03/2020 9:44 AM CREDIT OPERATIONS SPECIALIST): - He presented with malaise, cough, [...] decide Assessment & Plan (05/02/2020 9:46 AM CREDIT OPERATIONS SPECIALIST): - He presented with malaise, cough, shortness of breath. Symptoms began approximately on 2020. Vital signs on admission hypoxemia. A CXR obtained on admission showed bilateral infiltrates. - COVID-19 RNA PCR was sent on April 20, 2020 at [facility] in [facility].. The patient's testing for [...] treatment. Assessment & Plan (05/01/2020 6:15 PM CREDIT OPERATIONS SPECIALIST): - He presented with malaise, cough, shortness of breath. Symptoms began approximately on 2020. Vital signs on admission hypoxemia. A CXR obtained on admission showed bilateral infiltrates. - COVID-19 RNA PCR was sent on April 20, 2020 at [facility] in [facility].. The patient's testing for [...] 2019 Assessment & Plan (05/03/2020 9:45 AM CREDIT OPERATIONS SPECIALIST): This seems to be improved. I have asked the pulmonary rehab team to evaluate the patient to see if he might need oxygen at discharge - possible discharge later today or tomorrow Assessment & Plan (05/02/2020 9:46 AM CREDIT OPERATIONS SPECIALIST): I will treat the patient with oxygen to maintain adequate oxygenation and treat his other issues as per below. Assessment & Plan (05/01/2020 6:15 PM CREDIT OPERATIONS SPECIALIST): I will treat the patient with oxygen to maintain adequate oxygenation and treat his other issues as per below. DM2 (diabetes mellitus, type 2) 05/01/2020 Assessment & Plan (05/03/2020 9:43 AM CREDIT OPERATIONS SPECIALIST): Doing well on current Lantus at night and NPH with dexamethasone - likely continue this at discharge Assessment & Plan (05/02/2020 9:46 AM CREDIT OPERATIONS SPECIALIST): Lantus reduced to 40 units last night - will give NPH with dexamethasone today and follow sugars Assessment & Plan (05/01/2020 6:12 PM CREDIT OPERATIONS SPECIALIST): As per history of present illness, [...] 04/05/2020 Assessment & Plan (05/03/2020 9:44 AM CREDIT OPERATIONS SPECIALIST): Continue apixaban, BB Chronic anticoagulation 04/05/2020 Aortic stenosis 02/01/2020 Claudication in peripheral vascular disease ([facility] 02/01/2020 PAD (peripheral artery disease) 01/04/2020 Overview (01/04/2020): Added automatically from request for surgery [id number] Assessment & Plan (05/03/2020 9:42 AM CREDIT OPERATIONS SPECIALIST): I will continue patient's clopidogrel and statin therapy Assessment & Plan (05/02/2020 9:45 AM CREDIT OPERATIONS SPECIALIST): I will continue patient's clopidogrel and statin therapy Assessment & Plan (05/01/2020 6:11 PM CREDIT OPERATIONS SPECIALIST): I will continue patient's clopidogrel and statin therapy Systolic murmur 07/05/2019 Class 2 severe obesity due t o excess calories with serious comorbidity and body mass index (BMI) of 39.0 to 39.9 in adult 09/24/2017 Assessment & Plan (05/02/2020 9:46 AM CREDIT OPERATIONS SPECIALIST): This raises patient's complication risk related to COVID-19 Assessment & Plan (05/01/2020 6:14 PM CREDIT OPERATIONS SPECIALIST): This raises patient's complication risk related to COVID-19 Coronary artery disease of n ative artery of [place] heart with stable angina pectoris ([facility]) 03/18/2017 Hx of CABG 03/18/2017 Hypertension associated with diabetes 03/18/2017 S/P coronary artery stent placement 03/18/2017 Obesity with body mass index 30 or greater 02/14 Overview (09/06/2016): Obesity (BMI 35.0-39.9 without comorbidity) Mixed diabetic hyperlipidemi a associated with type 2 diabetes mellitus ([facility]) 12/11/2015 Overview (09/06/2016): DM type 2 with diabetic dyslipidemia Assessment & Plan (05/03/2020 9:42 AM CREDIT OPERATIONS SPECIALIST): Continue statin therapy Assessment & Plan (05/02/2020 9:45 AM CREDIT OPERATIONS SPECIALIST): Continue statin therapy Assessment & Plan (05/01/2020 6:11 PM CREDIT OPERATIONS SPECIALIST): Continue statin therapy Exercise-induced angina 03/01/2015 Overview (09/06/2016): Angina of effort ROYER on CPAP 03/01/2015 Overview (09/06/2016): ROYER on CPAP Assessment & Plan (05/03/2020 9:42 AM CREDIT OPERATIONS SPECIALIST): - continue CPAP at night Assessment & Plan (05/02/2020 9:45 AM CREDIT OPERATIONS SPECIALIST): While normally we avoid CPAP in the setting of COVID-19 infection in the hospital, patient tells me that he becomes quite short of breath and has significant apnea without it - continue CPAP at night Assessment & Plan (05/01/2020 6:11 PM CREDIT OPERATIONS SPECIALIST): While normally we avoid CPAP in [...] 12/07/2021 Assessment & Plan (05/03/2020 9:44 AM CREDIT OPERATIONS SPECIALIST): I will continue patient's Plavix, statin, and beta-elan therapy. Assessment & Plan (05/02/2020 9:46 AM CREDIT OPERATIONS SPECIALIST): I will continue patient's Plavix, statin, and beta-elan therapy. Assessment & Plan (05/01/2020 6:15 PM CREDIT OPERATIONS SPECIALIST): I will continue patient's Plavix, statin, and beta-elan therapy. Encounters Date Type Department Care Team Description 10/06/2024 Telephone [facility] Cardiology [address] [place] [address] J Carlos Quinones MD from [...] on file Legal Sex Male 2:06 AM CREDIT OPERATIONS SPECIALIST Gender Identity Not on file Sexual Orientation Not on file Obstetrics History Last Filed Vital Signs Vital Sign Reading Time Taken Comments Blood Pressure 126/58 06/16/2024 9:47 AM CREDIT OPERATIONS SPECIALIST Pulse 70 06/16/2024 9:47 AM CREDIT OPERATIONS SPECIALIST Temperature 36.7 C (98.1 F) 09/26/2023 1:09 PM CDT Respiratory Rate 20 09/26/2023 1:09 PM CDT Oxygen Saturation 97% 06/16/2024 9:47 AM CREDIT OPERATIONS SPECIALIST Inhaled Oxygen Concentration - - Weight 106.1 kg (234 lb) 06/16/2024 9:47 AM CREDIT OPERATIONS SPECIALIST Height 167.6 cm (5' 6) 06/16/2024 9:47 AM CREDIT OPERATIONS SPECIALIST Body Mass Index 37.77 06/16/2024 9:47 AM CREDIT OPERATIONS SPECIALIST Plan of Treatment Health Maintenance Due Date [...] 08/31, 04/14/2023, Additional history exists Influenza Vaccine (#1) 2025 , 03/14/2022, 04/19/2021, Additional history exists Lipid Panel 06/16/2025 06/16/2024, 03/04, 03/20/2022, Additional history exists Hepatitis B Screening Completed 12/25/2009 , 07/28/2009, 06/26/2009 Pneumococcal vaccine 65+ Completed 03/14/2022 Zoster Vaccine Completed 11/05/2022, 09/02/2022 Medical Devices Implanted Type Area Prover Device Identifier Shelf Expiration Date Model / Serial / Lot Sensser [id number] Synergy 3mm 20mm 144cm Radiopaque 1 Access Port Inflation Lumen - [id number] Implanted:Qty: 1 on 01/13/2020 by J Carlos Quinones MD at [facility] [employer] Johanna [id number] / / [place] [employer] Johanna [id number] Synergy 3.5mm 24mm 144cm Radiopaque 1 Access Port Inflation Lumen - [id number] Implanted:Qty: 1 on 01/13/2020 by J Carlos Quinones MD at [facility] [employer] Johanna [id number] / / Daig Johanna [id number] Device Closure Angio-Seal Vip Bondek-Plus Polyglyd L70 Cm Od6 Fr Odsec.035 In Vascular - [id number] Implanted:Qty: 1 on 01/13/2020 by J Carlos Quinones MD at [facility] [id number] / / Bard Peripheral Vascular [id number] Lifestream 8mm 26mm 80cm Balloon Expandable Low Profile Cover - [id number] Implanted:Qty: 1 on 03/09/2020 by J Carlos Quinones MD at [facility] Peripheral Vascular [id number] / / Daig Johanna [id number] Device Closure Angio-Seal Vip Bondek-Plus Polyglyd L70 Cm Od6 Fr Odsec.035 In Vascular - [id number] Implanted:Qty: 1 on 03/09/2020 by J Carlos Quinones MD at [facility] [employer] Johanna[employer] [id number] / / Daig Johanna [id number] Device Closure Angio-Seal Vip Bondek-Plus Polyglyd L70 Cm Od6 Fr Odsec.035 In Vascular - [id number] Implanted:Qty: 1 on 03/09/2020 by J Carlos Quinones MD at [facility] [id number] / / [employer] Card Vasc Surgery 3.5 X 15mm Jasbir [place] Rx Coronary Stent [id number] - [id number] Implanted:Qty: 1 on 2023 by J Carlos Quinones MD at [facility] Vasc Surgery 01/21/2026 [id number] / / [id number] [employer] [facility] Device Vascular Closure Femoral Artery Bioabsorbable Dual Method Vascade 6-7fr Collagen [id number] - [id number] Implanted:Qty: 1 on 2023 by J Carlos Quinones MD at [facility] [employer] 12/24/2024 [id number] / / [id number] [employer] Vascular Device Clsr Perclose Prostyle Sut-Mediatd Closure-Repair Sys 52426-84 - [id number] Implanted:Qty: 1 on 09/25/2023 by J Carlos Quinones MD at [facility] [employer] 06/01/2025 [id number] / / [id number] [employer] V[employer] Device Clsr Perclose Prostyle Sut-Mediatd Closure-Repair Sys 44074-83 - [id number] Implanted:Qty: 1 on 09/25/2023 by J Carlos Quinones MD at [facility] Vascular 07/02/2025 [id number] / / [id number] [employer] Device Closure Vascade Od5 Fr Femoral Artery [id number] - [id number] Implanted:Qty: 1 on 09/25/2023 by J Carlos Quinones MD at [facility] [employer] 04/28/2025 [id number] / / [id number] [employer] Valve Aortic Trnscath August 3 Ultra Resilia 26mm [id number] - [id number] - [id number] Implanted:Qty: 1 on 09/25/2023 by J Carlos Quinones MD at [facility] [employer] 10/30/2025 [id number] / [id number] / Procedures Procedure Name Priority Date/Time Associated Diagnosis Comments LIPID PANEL Routine 06/16/2024 11:29 AM CREDIT OPERATIONS SPECIALIST EGFR Routine 09/26/2023 5:36 AM CDT HEMOGLOBIN A1C Routine 05/02/2020 9:36 PM CREDIT OPERATIONS SPECIALIST from Last 3 Months or Most Recently Relevant to Health Maintenance Results * Lipid panel (06/16/2024 11:29 AM CREDIT OPERATIONS SPECIALIST) SCRIBED Cholesterol, Total 102 <100 - [...] ORDERABLES Final Resul t Performing Organization Address City/[facility] Co de Phone Number [facility] [address] [place] [address] * (ABNORMAL) Hemoglobin A1c (05/02/2020 9:36 PM CREDIT OPERATIONS SPECIALIST) Hgb A1C 6.8(H) 4.0 - 5.6 % [facility] Estimated Average Glucose 148 mg/dL [facility] Comment: The ADA recommends reporting an estimated Average Glucose (eAG) with all Hemoglobin A1c results using the equation derived from a study of 507 normal and diabetic adults. Minority populations were underrepresented and children were not included. (Diabetes Care 31:9200-7162, 2008). The eAG is not equivalent to a fasting glucose. Blood specimen (specimen) 05/02/2020 9:36 PM CREDIT OPERATIONS SPECIALIST 05/02/2020 10:30 PM CREDIT OPERATIONS SPECIALIST Alexx Bustamante MD LAB BLOOD ORDERABLES Final R esult Performing Organization Address [facility] Co de Phone Number [facility] [place] [address] from Last 3 Months or Most Recently Relevant to Health Maintenance [place] [address] [facility] CHOICE PLUS MEDICARE [facility] Address: [facility] [address] [place] [address] [facility] MEDICARE [facility] Address: [address] [address] [place] [address] [facility] Advance Directives For more information, please contact: [phone] * Full Code (Latest Code Status on File) Date Activated Date Inactivated Comments 05/01/2020 7:33 PM 05/03/2020 10:49 PM Care Teams Mortgage Loan Assistant Relationship Specialty Start Date End Date Michele Harp MD PCP - General 06/04/13
--- OUTSIDE RECORDS SUMMARY | 2024-12-29 00:24 | XMS_ITS | Referral Summary ---
Author Organization [facility] [place] [address] [facility] [address] Address [address] [place] [address] Care Team Providers Care Cardroom Drawing Runner Name Role Phone Michele Harp MD Primary Care Provider [phone] Encounters Date Type Department Care Team Description 10/06/2024 Telephone [facility] Cardiology [address] [place] [address] J Carlos Quinones MD from [...] 05/01/2020 Assessment & Plan (05/03/2020 9:44 AM NEUROLOGY STROKE PHYSICIAN): - He presented with malaise, cough, shortness of breath. Symptoms began approximately on 2020. Vital signs on admission hypoxemia. A CXR obtained on admission showed bilateral infiltrates. - COVID-19 RNA PCR was sent on April 20, 2020 at [facility] in [facility].. The [...] decide Assessment & Plan (05/02/2020 9:46 AM NEUROLOGY STROKE PHYSICIAN): - He presented with malaise, cough, shortness of breath. Symptoms began approximately on 2020. Vital signs on admission hypoxemia. A CXR obtained on admission showed bilateral infiltrates. - COVID-19 RNA PCR was sent on April 20, 2020 at [facility] in [facility].. The [...] treatment. Assessment & Plan (05/01/2020 6:15 PM NEUROLOGY STROKE PHYSICIAN): - He presented with malaise, cough, shortness of breath. Symptoms began approximately on 2020. Vital signs on admission hypoxemia. A CXR obtained on admission showed bilateral infiltrates. - COVID-19 RNA PCR was sent on April 20, 2020 at [facility] in [facility].. The [...] 2019 Assessment & Plan (05/03/2020 9:45 AM NEUROLOGY STROKE PHYSICIAN): This seems to be improved. I have asked the pulmonary rehab team to evaluate the patient to see if he might need oxygen at discharge - possible discharge later today or tomorrow Assessment & Plan (05/02/2020 9:46 AM NEUROLOGY STROKE PHYSICIAN): I will treat the patient with oxygen to maintain adequate oxygenation and treat his other issues as per below. Assessment & Plan (05/01/2020 6:15 PM NEUROLOGY STROKE PHYSICIAN): I will treat the patient with oxygen to maintain adequate oxygenation and treat his other issues as per below. DM2 (diabetes mellitus, type 2) 05/01/2020 Assessment & Plan (05/03/2020 9:43 AM NEUROLOGY STROKE PHYSICIAN): Doing well on current Lantus at night and NPH with dexamethasone - likely continue this at discharge Assessment & Plan (05/02/2020 9:46 AM NEUROLOGY STROKE PHYSICIAN): Lantus reduced to 40 units last night - will give NPH with dexamethasone today and follow sugars Assessment & Plan (05/01/2020 6:12 PM NEUROLOGY STROKE PHYSICIAN): As per history of present illness, patient [...] 04/05/2020 Assessment & Plan (05/03/2020 9:44 AM NEUROLOGY STROKE PHYSICIAN): Continue apixaban, BB Chronic anticoagulation 04/05/2020 Aortic stenosis 02/01/2020 Claudication in peripheral vascular disease ([facility]) 02/01/2020 PAD (peripheral artery disease) 01/04/2020 Overview (01/04/2020): Added automatically from request for surgery [id number] Assessment & Plan (05/03/2020 9:42 AM NEUROLOGY STROKE PHYSICIAN): I will continue patient's clopidogrel and statin therapy Assessment & Plan (05/02/2020 9:45 AM NEUROLOGY STROKE PHYSICIAN): I will continue patient's clopidogrel and statin therapy Assessment & Plan (05/01/2020 6:11 PM NEUROLOGY STROKE PHYSICIAN): I will continue patient's clopidogrel and statin therapy Systolic murmur 07/05/2019 Class 2 severe obesity due t o excess calories with serious comorbidity and body mass index (BMI) of 39.0 to 39.9 in adult 09/24/2017 Assessment & Plan (05/02/2020 9:46 AM NEUROLOGY STROKE PHYSICIAN): This raises patient's complication risk related to COVID-19 Assessment & Plan (05/01/2020 6:14 PM NEUROLOGY STROKE PHYSICIAN): This raises patient's complication risk related to COVID-19 Coronary artery disease of n ative artery of [place] heart with stable angina pectoris ([facility]) 03/18/2017 Hx of CABG 03/18/2017 Hypertension associated with diabetes 03/18/2017 S/P coronary artery stent placement 03/18/2017 Obesity with body mass index 30 or greater 02/14 Overview (09/06/2016): Obesity (BMI 35.0-39.9 without comorbidity) Mixed diabetic hyperlipidemi a associated with type 2 diabetes mellitus ([facility]) 12/11/2015 Overview (09/06/2016): DM type 2 with diabetic dyslipidemia Assessment & Plan (05/03/2020 9:42 AM NEUROLOGY STROKE PHYSICIAN): Continue statin therapy Assessment & Plan (05/02/2020 9:45 AM NEUROLOGY STROKE PHYSICIAN): Continue statin therapy Assessment & Plan (05/01/2020 6:11 PM NEUROLOGY STROKE PHYSICIAN): Continue statin therapy Exercise-induced angina 03/01/2015 Overview (09/06/2016): Angina of effort ROYER on CPAP 03/01/2015 Overview (09/06/2016): ROYER on CPAP Assessment & Plan (05/03/2020 9:42 AM NEUROLOGY STROKE PHYSICIAN): - continue CPAP at night Assessment & Plan (05/02/2020 9:45 AM NEUROLOGY STROKE PHYSICIAN): While normally we avoid CPAP in the setting of COVID-19 infection in the hospital, patient tells me that he becomes quite short of breath and has significant apnea without it - continue CPAP at night Assessment & Plan (05/01/2020 6:11 PM NEUROLOGY STROKE PHYSICIAN): While normally we avoid CPAP in the [...] 12/07/2021 Assessment & Plan (05/03/2020 9:44 AM NEUROLOGY STROKE PHYSICIAN): I will continue patient's Plavix, statin, and beta-elan therapy. Assessment & Plan (05/02/2020 9:46 AM NEUROLOGY STROKE PHYSICIAN): I will continue patient's Plavix, statin, and beta-elan therapy. Assessment & Plan (05/01/2020 6:15 PM NEUROLOGY STROKE PHYSICIAN): I will continue patient's Plavix, statin, and [...] on file Legal Sex Male 2:06 AM NEUROLOGY STROKE PHYSICIAN Gender Identity Not on file Sexual Orientation Not on file Last Filed Vital Signs Vital Sign Reading Time Taken Comments Blood Pressure 126/58 06/16/2024 9:47 AM NEUROLOGY STROKE PHYSICIAN Pulse 70 06/16/2024 9:47 AM NEUROLOGY STROKE PHYSICIAN Temperature 36.7 C (98.1 F) 09/26/2023 1:09 PM CDT Respiratory Rate 20 09/26/2023 1:09 PM CDT Oxygen Saturation 97% 06/16/2024 9:47 AM NEUROLOGY STROKE PHYSICIAN Inhaled Oxygen Concentration - - Weight 106.1 kg (234 lb) 06/16/2024 9:47 AM NEUROLOGY STROKE PHYSICIAN Height 167.6 cm (5' 6) 06/16/2024 9:47 AM NEUROLOGY STROKE PHYSICIAN Body Mass Index 37.77 06/16/2024 9:47 AM NEUROLOGY STROKE PHYSICIAN Plan of Treatment Not on file Medical Devices Implanted Type Area [employer] Tin Roller Device Identifier Shelf Expiration Date Model / Serial / Lot [employer] [id number] Synergy 3mm 20mm 144cm Radiopaque 1 Access Port Inflation Lumen - [id number] Implanted:Qty: 1 on 01/13/2020 by J Carlos Quinones MD at [facility] [email or web address] Johanna [id number] / / LGL/[employer] Lumidigm [id number] Synergy 3.5mm 24mm 144cm Radiopaque 1 Access Port Inflation Lumen - [id number] Implanted:Qty: 1 on 01/13/2020 by J Carlos Quinones MD at [facility] [email or web address] Johanna [id number] / / Daig Johanna [id number] Device Closure Angio-Seal Vip Bondek-Plus Polyglyd L70 Cm Od6 Fr Odsec.035 In Vascular - [id number] Implanted:Qty: 1 on 01/13/2020 by J Carlos Quinones MD at [facility] [id number] / / Bard Peripheral Vascular [id number] Lifestream 8mm 26mm 80cm Balloon Expandable Low Profile Cover - [id number] Implanted:Qty: 1 on 03/09/2020 by J Carlos Quinones MD at [facility] Peripheral Vascular [id number] / / Daig Johanna [id number] Device Closure Angio-Seal Vip Bondek-Plus Polyglyd L70 Cm Od6 Fr Odsec.035 In Vascular - [id number] Implanted:Qty: 1 on 03/09/2020 by J Carlos Quinones MD at [facility] [id number] / / Daig Johanna [id number] Device Closure Angio-Seal Vip Bondek-Plus Polyglyd L70 Cm Od6 Fr Odsec.035 In Vascular - [id number] Implanted:Qty: 1 on 03/09/2020 by J Carlos Quinones MD at [facility] [id number] / / Medtronic Card Vasc Surgery 3.5 X 15mm Jasbir Catron Rx Coronary Stent [id number] - [id number] Implanted:Qty: 1 on 2023 by J Carlos Quinones MD at [facility] Card Vasc Surgery 01/21/2026 [id number] / / [id number] [employer] Medical [facility] Device Vascular Closure Femoral Artery Bioabsorbable Dual Method Vascade 6-7fr Collagen [id number] - [id number] Implanted:Qty: 1 on 2023 by J Carlos Quinones MD at [facility] 12/24/2024 [id number] / / [id number] Olivas Vascular Device Clsr Perclose Prostyle Sut-Mediatd Closure-Repair Sys 60926-00 - [id number] Implanted:Qty: 1 on 09/25/2023 by J Carlos Quinones MD at [facility] [employer] 06/01/2025 [id number] / / [id number] Olivas Vascular Device Clsr Perclose Prostyle Sut-Mediatd Closure-Repair Sys 44358-36 - [id number] Implanted:Qty: 1 on 09/25/2023 by J Carlos Quinones MD at [facility] Vascular 07/02/2025 [id number] / / [id number] Cardisd Medical [facility] Device Closure Vascade Od5 Fr Femoral Artery [id number] - [id number] Implanted:Qty: 1 on 09/25/2023 by J Carlos Quinones MD at [facility] 04/28/2025 [id number] / / [id number] Gonzalez Lifesciences Valve Aortic Trnscath August 3 Ultra Resilia 26mm [id number] - [id number] - [id number] Implanted:Qty: 1 on 09/25/2023 by J Carlos Quinones MD at [facility] [employer] 10/30/2025 [id number] / [id number] / Procedures Procedure Name Priority Date/Time Associated Diagnosis Comments LIPID PANEL Routine 06/16/2024 11:29 AM NEUROLOGY STROKE PHYSICIAN EGFR Routine 09/26/2023 5:36 AM CDT HEMOGLOBIN A1C Routine 05/02/2020 9:36 PM NEUROLOGY STROKE PHYSICIAN from Last 3 Months or Most Recently Relevant to Health Maintenance Results * Lipid panel (06/16/2024 11:29 AM NEUROLOGY STROKE PHYSICIAN) SCRIBED Cholesterol, Total 102 <100 - <100 [...] ORDERABLES Final Resul t Performing Organization Address [facility] Co de Phone Number [facility] [phone] [place] [address] * (ABNORMAL) Hemoglobin A1c (05/02/2020 9:36 PM NEUROLOGY STROKE PHYSICIAN) Hgb A1C 6.8(H) 4.0 - 5.6 % [facility] Estimated Average Glucose 148 mg/dL [facility] Comment: The ADA recommends reporting an estimated Average Glucose (eAG) with all Hemoglobin A1c results using the equation derived from a study of 507 normal and diabetic adults. Minority populations were underrepresented and children were not included. (Diabetes Care 31:7161-0863, 2008). The eAG is not equivalent to a fasting glucose. Blood specimen (specimen) 05/02/2020 9:36 PM NEUROLOGY STROKE PHYSICIAN 05/02/2020 10:30 PM NEUROLOGY STROKE PHYSICIAN Alexx Bustamante MD LAB BLOOD ORDERABLES Final R esult Performing Organization Address [facility] Co de Phone Number [facility] Department [place] [address] from Last 3 Months or Most Recently Relevant to Health Maintenance Insurance MEDICARE [facility] CHOICE PLUS MEDICARE [facility] MEDICARE [facility] Advance Directives For more information, please contact: [phone] * Full Code (Latest Code Status on File) Date Activated Date Inactivated Comments 05/01/2020 7:33 PM 05/03/2020 10:49 PM Care Teams Cardroom Drawing Runner Relationship Specialty Start Date End Date Michele Harp MD PCP - General 06/04/13
[2024-12-29 06:10] VITALS: BP 142/70; PULSE 64; RESP 20; TEMP 36.5; O2SAT 97
[2024-12-29] MEDS: ACETAMINOPHEN 500 MG TABLET 1000 MG PO (06:30)
[2024-12-29] MEDS: LACTATED RINGERS 1,000 ML 30 ML IV CONT (06:35)
--- NOTE | 2024-12-29 06:47 | PM.HPGS ---
History of Present Illness History of Present Illness Chief complaint: left carpal tunnel syndrome Narrative: Patient seen and examined in pre-operative holding area. No interval change in medical history or symptoms. Patient recalls previous discussion of benefits and alternatives to procedure. Continues to desire to proceed with left endoscopic possible open carpal tunnel release . Reviewed procedure, post-op expectations and risks including but not limited to bleeding, infection, injury to tendon/nerve/vessel, decreased hand function, stiffness, RSD, no change or worsening of symptoms. I discussed the possible use of assistants and their participation in the case. Patient stated understanding and signed the consent form wishing to proceed. Review of Systems Review of Systems: All systems reviewed & are unremarkable except as noted in HPI and below PMFSH Past Medical History Medical History Colon cancer screening Essential hypertension Obstructive sleep apnea on CPAP Congestive heart failure Peripheral vascular disease Coronary artery disease Gastroesophageal reflux disease Insulin dependent type 2 diabetes mellitus Left ventricular hypertrophy COVID-19 (~04/2020) Aortic regurgitation Aortic stenosis Mixed hyperlipidemia Surgical History Surgical History S/P insertion of iliac artery stent S/P TAVR (transcatheter aortic valve replacement) History of vascular surgery Right lower extremity stent. History of cardiac catheterization With several stents, most recent in January 2020. Status post coronary artery bypass grafts x 5 (~04/16/15) Performed at [facility]. Family History Family History Father Patient's father is Mother Alzheimer dementia Other Family history of cardiovascular disease Hypertension Social History Social History (Updated 11/19/24 @ 09:38 by Jenna Silva MA) Social History: The patient lives in [place] with his . 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 Former smoker. No alcohol or illicit substance abuse. He designates his Aarti as his surrogate decision maker and he wishes to be a full code. Smoking packs per day: 1 Smoking cigarettes per day: 20.0 Years smoked: 7 Smoking pack-years: 7.00 Smoking status: Former smoker Tobacco type: cigarettes Smoking end date: 06/02/79 Alcohol intake: former Substance use type: does not use Lack of Transportation: No Lack of Food: Never True Current Housing: I Have Housing Concerned About Future Housing: No Difficulty Paying Gas/Electric Bills: No Difficulty Paying for Meds: No Currently Unemployed: No Education: High School Diploma/GED Difficulty w/ Childcare or Family Care: No Living arrangements: with family Gender identity (if verbalized by the patient): Male Spiritual care concerns: No Meds Home Medications and Allergies Home Medications ?Medication ?Instructions ?Recorded ?Confirmed ?Type furosemide 40 mg tablet 40 mg PO DAILY 01/04/20 12/29/24 History nitroglycerin 0.4 mg sublingual 0.4 mg sublingual Q5M PRN Chest 01/04/20 12/24/24 History tablet (Nitrostat) Pain rosuvastatin 40 mg tablet (Crestor) 40 mg PO DAILY 01/04/20 12/29/24 History alpha lipoic acid 200 mg capsule 200 mg PO TID 05/17/20 12/29/24 History metoprolol tartrate 25 mg tablet 50 mg PO BID 06/11/20 12/29/24 History metformin 500 mg tablet 1,000 mg (2 x 500 mg) PO BID #180 04/01/24 12/29/24 Rx tabs pen needle, diabetic 31 gauge x #1,200 ea 05/12/24 11/19/24 Rx 5/16 (Easy Comfort Pen [place]) isosorbide mononitrate 60 mg 60 mg PO DAILY 07/02/24 12/29/24 History tablet,extended release 24 hr tirzepatide 10 mg/0.5 mL See Rx Instructions .Route 08/13/24 12/29/24 Rx subcutaneous pen injector .COMPLEX #6 mL (Mounjaro) lisinopril 40 mg tablet 20 mg PO DAILY 09/15/24 12/29/24 History fexofenadine 60 mg tablet (Leann 60 mg PO DAILY 10/07/24 12/29/24 History Allergy) magnesium 200 mg tablet 400 mg PO EVERY OTHER DAY 10/07/24 12/29/24 History multivitamin (Daily Value tablet) 1 tablet PO DAILY 10/07/24 12/29/24 History potassium 99 mg tablet 99 mg PO EVERY OTHER DAY 10/07/24 12/29/24 History tramadol 50 mg tablet 50 mg PO Q6H PRN pain #12 tabs 10/20/24 12/24/24 Rx pantoprazole 40 mg tablet,delayed See Rx Instructions .Route 11/15/24 12/29/24 Rx release .COMPLEX #180 tabs apixaban 5 mg tablet (Eliquis) 5 mg PO Q12HR 11/19/24 12/29/24 History clopidogrel 75 mg tablet 75 mg PO DAILY 11/19/24 12/29/24 History glimepiride 4 mg tablet 4 mg PO BID #180 tabs 12/09/24 12/29/24 Rx Vascepa 1 gram capsule (icosapent See Rx Instructions .Route 12/22/24 12/29/24 Rx ethyl) .COMPLEX #360 caps insulin glargine 100 unit/mL (3 55 unit subcut HS 12/24/24 12/29/24 History mL) subcutaneous pen (Lantus Solostar U-100 Insulin) Allergies Allergy/AdvReac Type Severity Reaction Status Date / Time No Known Allergies Allergy Verified 12/29/24 06:12 Exam Narrative: unchanged Assessment and Plan Assessment and plan (1) Carpal tunnel syndrome: Qualifiers: Laterality: bilateral Qualified Code(s): G56.03 - Carpal tunnel syndrome, bilateral upper limbs Code(s): G56.00 - Carpal tunnel syndrome, unspecified upper limb Status: Acute Assessment and Plan: cont as above
--- NOTE | 2024-12-29 06:47 | W.PM.PROC2 ---
Procedure Note - Detailed Date of Procedure 12/29/24 Pre-op Diagnosis left carpal tunnel syndrome Post-op Diagnosis Same Procedure Performed left ectr Surgeon Nathalie Delarosa MD Patient Service Technician Pst britt nunez pa-c Anesthesia MAC Description of Procedure INFORMED CONSENT: The patient was seen and examined and marked in the pre-op area.? The patient signed the consent form. PROCEDURE IN DETAIL:The patient taken back to OR on the stretcher in supine position. Time out performed with anesthesia, surgeon and staff agreeing on patient's name site and surgery to be performed SCDs were placed on the lower extremities and inflated. A tourniquet was placed on {left} upper extremity and antibiotics given IV After anesthesia administered sedation I injected {5}cc 1%lido with epi and 0.5% marcaine plain at the operative site The?{left upper extremity}?was prepped and draped in sterile fashion the??{left upper extremity} was? exsanguinated with Esmarch bandage and tourniquet inflated to 250mmHg I made a transverse incision in the {left} volar distal wrist crease through skin and dermis with 15 blade scalpel.? Littler scissors spread down to antebrachial fascia. A small incision was made in antebrachial fascia allowing access to Carpal tunnel. I proceeded with sequential dilation staying in line with the ring finger and hugging the hook of the hamate.? I then used the synovial elevator to free any adhesions from the underside of the transverse carpal ligament. Next I was able to insert the Microaire endoscopic carpal tunnel device with direct visualization of the transverse fibers on the monitor and proceeded with complete segmental retrograde release of the ligament in its entirety.? I irrigated with normal saline and closed with 4-0 monocryl for dermis and subcuticular closure. A dressing of Dermabond, 4x4, cody, and a volar splint was applied for patient safety, security, and comfort and secured with an marysol bandage after the tourniquet was let down noting the hand was warm and well perfused. The patient was then awaken from anesthesia and transferred to the recovery room in stable condition.? Complications - none EBL- 0cc Disposition - home in stable condition britt Nunez PA-C was essential for positioning, retraction, closure and dressing placement [facility] Billing Surgery - Charge Forward: Surgery Billing ([id number] same for britt adding )
--- NOTE | 2024-12-29 07:24 | P.PNAN_ITS ---
Anes - Initial Pre Proc Eval Procedure: Operation Date: 12/29/24 07:30 Proposed Procedures p Left Endoscopic Carpal Tunnel Release, Possible Open - Nathalie Delarosa MD Date/Time: 12/29/24 07:24 Surgeon: Nathalie Delarosa MD Pre Op Diagnosis: left carpal tunnel syndrome Patient Data Age: 69 Gender: M Height: 1.68 m Weight: 106.6 kg Allergies Allergy/AdvReac Type Severity Reaction Status Date / Time No Known Allergies Allergy Verified 12/29/24 06:12 Home Medications ?Medication ?Instructions ?Recorded ?Confirmed ?Type furosemide 40 mg tablet 40 mg PO DAILY 01/04/20 12/29/24 History nitroglycerin 0.4 mg sublingual 0.4 mg sublingual Q5M PRN Chest 01/04/20 12/24/24 History tablet (Nitrostat) Pain rosuvastatin 40 mg tablet (Crestor) 40 mg PO DAILY 01/04/20 12/29/24 History alpha lipoic acid 200 mg capsule 200 mg PO TID 05/17/20 12/29/24 History metoprolol tartrate 25 mg tablet 50 mg PO BID 06/11/20 12/29/24 History metformin 500 mg tablet 1,000 mg (2 x 500 mg) PO BID #180 04/01/24 12/29/24 Rx tabs pen needle, diabetic 31 gauge x #1,200 ea 05/12/24 11/19/24 Rx 5/16 (Easy Comfort Pen [place]) isosorbide mononitrate 60 mg 60 mg PO DAILY 07/02/24 12/29/24 History tablet,extended release 24 hr tirzepatide 10 mg/0.5 mL See Rx Instructions .Route 08/13/24 12/29/24 Rx subcutaneous pen injector .COMPLEX #6 mL (Mounjaro) lisinopril 40 mg tablet 20 mg PO DAILY 09/15/24 12/29/24 History fexofenadine 60 mg tablet (Leann 60 mg PO DAILY 10/07/24 12/29/24 History Allergy) magnesium 200 mg tablet 400 mg PO EVERY OTHER DAY 10/07/24 12/29/24 History multivitamin (Daily Value tablet) 1 tablet PO DAILY 10/07/24 12/29/24 History potassium 99 mg tablet 99 mg PO EVERY OTHER DAY 10/07/24 12/29/24 History tramadol 50 mg tablet 50 mg PO Q6H PRN pain #12 tabs 10/20/24 12/24/24 Rx pantoprazole 40 mg tablet,delayed See Rx Instructions .Route 11/15/24 12/29/24 Rx release .COMPLEX #180 tabs apixaban 5 mg tablet (Eliquis) 5 mg PO Q12HR 11/19/24 12/29/24 History clopidogrel 75 mg tablet 75 mg PO DAILY 11/19/24 12/29/24 History glimepiride 4 mg tablet 4 mg PO BID #180 tabs 12/09/24 12/29/24 Rx Vascepa 1 gram capsule (icosapent See Rx Instructions .Route 12/22/24 12/29/24 Rx ethyl) .COMPLEX #360 caps insulin glargine 100 unit/mL (3 55 unit subcut HS 12/24/24 12/29/24 History mL) subcutaneous pen (Lantus Solostar U-100 Insulin) Laboratory Tests 12/29/24 06:37 POC Capillary Glucose 88 mg/dl (65-105) Patient hx anesthesia problems: none Family hx anesthesia problems: none Results Review: All pre-operative results and documents have been reviewed as part of the pre- operative evaluation. [facility] Past Medical History Medical History Colon cancer screening Essential hypertension Obstructive sleep apnea on CPAP Congestive heart failure Peripheral vascular disease Coronary artery disease Gastroesophageal reflux disease Insulin dependent type 2 diabetes mellitus Left ventricular hypertrophy COVID-19 (~04/2020) Aortic regurgitation Aortic stenosis Mixed hyperlipidemia Surgical History Surgical History S/P insertion of iliac artery stent S/P TAVR (transcatheter aortic valve replacement) History of vascular surgery Right lower extremity stent. History of cardiac catheterization With several stents, most recent in January 2020. Status post coronary artery bypass grafts x 5 (~04/16/15) Performed at [facility]. Family History Family History Father Patient's father is Mother Alzheimer dementia Other Family history of cardiovascular disease Hypertension Social History Social History Social History: The patient lives in [place] with his . 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 No alcohol or illicit substance abuse. He designates his Aarti as his surrogate decision maker and he wishes to be a full code. Smoking packs per day: 1 Smoking cigarettes per day: 20.0 Years smoked: 7 Smoking pack-years: 7.00 Smoking status: Former smoker Tobacco type: cigarettes Smoking end date: 06/02/79 Alcohol intake: former Substance use type: does not use Lack of Transportation: No Lack of Food: Never True Current Housing: I Have Housing Concerned About Future Housing: No Difficulty Paying Gas/Electric Bills: No Difficulty Paying for Meds: No Currently Unemployed: No Education: High School Diploma/GED Difficulty w/ Childcare or Family Care: No Living arrangements: with family Gender identity (if verbalized by the patient): Male Spiritual care concerns: No Anes - Eval Final PreProcedure Day of Procedure 12/29/24 07:24 Patient weight: obese Heart: regular rate and rhythm Lungs: decreased breath sounds Airway: Mallampati scale class III Neurological: alert and oriented Last oral intake: >/= 8 hours ASA classification: IV Emergent: no Anesthetic plan: proceed Anesthesia type and monitoring: general GIVS and standard monitoring Results Review: All pre-operative results and documents have been reviewed as part of the pre- operative evaluation. Informed Consent: The patient's anesthetic plan and its attendant risks and benefits were discussed with the patient/family/POA. Questions were solicited and answers provided to the satisfaction of the patient/family/POA.
[2024-12-29] MEDS: ceFAZolin 2 GM in SODIUM CHLORIDE 0.9% IV 50 ML 100 ML IVPB (07:35)
[2024-12-29 07:49] VITALS: BP 135/73; PULSE 58; RESP 20; O2SAT 94
[2024-12-29 08:15] VITALS: BP 130/66; PULSE 57; RESP 20
[2024-12-29 08:30] VITALS: BP 132/61; PULSE 56; RESP 20
== END 2024-12-29 08:38 | disposition home or self-care (01) ==
PROVIDERS: PCP Family Medicine; Visit Provider Plastic Surgery
PROC: 01N54ZZ Release Median Nerve, Percutaneous Endoscopic Approach (ICD-10-PCS; CPT 29848; principal; 2024-12-29 07:30)
DX: G56.02 Carpal tunnel syndrome, left upper limb (principal); K21.9 Gastro-esophageal reflux disease without esophagitis; E11.9 Type 2 diabetes mellitus without complications; E78.2 Mixed hyperlipidemia; G47.33 Obstructive sleep apnea (adult) (pediatric); I25.10 Atherosclerotic heart disease of native coronary artery without angina pectoris; I11.0 Hypertensive heart disease with heart failure; I50.9 Heart failure, unspecified; I35.2 Nonrheumatic aortic (valve) stenosis with insufficiency; I73.9 Peripheral vascular disease, unspecified; E66.9 Obesity, unspecified; Z68.36 Body mass index [BMI] 36.0-36.9, adult; Z79.4 Long term (current) use of insulin; Z79.84 Long term (current) use of oral hypoglycemic drugs; Z79.85 Long-term (current) use of injectable non-insulin antidiabetic drugs; Z79.01 Long term (current) use of anticoagulants; Z79.02 Long term (current) use of antithrombotics/antiplatelets; Z79.891 Long term (current) use of opiate analgesic; Z99.89 Dependence on other enabling machines and devices; Z98.890 Other specified postprocedural states; Z95.820 Peripheral vascular angioplasty status with implants and grafts; Z95.5 Presence of coronary angioplasty implant and graft; Z87.890 Personal history of sex reassignment; Z82.49 Family history of ischemic heart disease and other diseases of the circulatory system
CPT/HCPCS: 29848; 82948; J0690; A9270; J2003; J2704; J3010; J7120

== ENCOUNTER 2025-05-16 07:58 | Outpatient (CLI) | payer MEDICARE, SELFPAY ==
[2025-05-16 11:20] LABS: Hematocrit 45.3 % (42.0-52.0); Hemoglobin 15.0 g/dL (14.0-18.0); Immature Granulocyte Percent A 0.2 % (0-0.5); Lymphocytes Absolute Auto 1.92 K/mm3 (0.9-3.2); Mean Corpuscular HGB Conc 33.1 g/dl (32-36); Mean Corpuscular Hemoglobin 28.1 pg (26-34); Mean Corpuscular Volume 85.0 fl (80-100); Nucleated Red Blood Cells Absolute Auto 0.000 K/mm3 (0.0-0.012); Nucleated Red Blood Cells Perc 0.0 % (0.0-0.2); Platelet Count Result 152 k/mm3 (150-375); Red Blood Count 5.33 M/mm3 (4.6-6.20); White Blood Count 8.0 K/mm3 (4.5-10.0)
[2025-05-16 11:21] LABS: Alanine Aminotransferase 25 U/L (6-50); Albumin Level 4.3 g/dL (3.5-5.1); Alkaline Phosphatase 52 U/L (38-126); Anion Gap 3 mmol/L (4-12); Aspartate Amino Transferase 52 U/L (17-59); Bilirubin,Total 0.6 mg/dL (0.2-1.3); Blood Urea Nitrogen 15 mg/dL (9-20); Calcium 9.1 mg/dL (8.4-10.2); Carbon Dioxide 33 mmol/L (22-30); Chloride 107 mmol/L (98-107); Cholesterol 126 mg/dL (0-200); Estimated Glomerular Filt Rate > 60; Glucose 118 mg/dL (65-110); HDL Direct 25 mg/dL; Potassium 3.9 mmol/L (3.4-5.0); Sodium 143 mmol/L (137-145); Total Protein 7.1 g/dL (6.3-8.2); Triglycerides 201 mg/dL (<150)
[2025-05-16 12:30] LABS: Hemoglobin A1C 6.2 % (<5.7)
== END 2025-05-16 07:59 | disposition home or self-care (01) ==
PROVIDERS: PCP Family Medicine; Visit Provider Nurse Practitioner Family
DX: E78.2 Mixed hyperlipidemia (principal); E11.65 Type 2 diabetes mellitus with hyperglycemia; I10 Essential (primary) hypertension; Z79.01 Long term (current) use of anticoagulants
CPT/HCPCS: 36415; 80053; 80061; 83036; 85025